=== PATIENT | male | born 1980 | race Caucasian/White ===

== ENCOUNTER 2018-03-15 15:30 | Emergency (ER) | payer BC, OTHER ==
--- NOTE | 2018-03-15 16:51 | RAD REPORT ---
EXAM DESCRIPTION: CT - Spine Lumbar Wo Con - 03/15/2018 4:29 pm CLINICAL HISTORY: Back pain radiating into both lower extremities COMPARISON: None. TECHNIQUE: Thin section axial imaging of the lumbar spine was performed. Sagittal and coronal recon struction images were generated and reviewed. All CT scans are performed using dose optimization technique as appropriate and may include automated exposure control or mA/KV adjustment according to patient size. FINDINGS: Lumbar bodies are normal in height and alignment. No fracture or acute bone finding. No pa rs interarticularis defects seen. Mid and lower lumbar facet joint degenerative changes minimal. No p araspinal mass or hematoma. L3-4 disc space is narrowed and there is bulging of disc material evident. Canal appears to be border line stenotic. Disc bulging is likely present at L4-5 as well. No large disc herniation is identifiable. CT imaging in the central canal is inherently limited. This is further limited by patient body habitus. IMPRESSION: No fracture or acute vertebral finding. L3-4 disc space narrowing and disc bulge changes with borderline or mild central spinal stenosis susp ected. Central canal detail is limited due to inherent technical factors and patient body habitus. Continued back pain and radicular symptoms can be further addressed with outpatient nonemergent MR im aging.
[2018-03-15] MEDS ORDERED: DIAZEPAM 5 MG TABLET ONE (16:54)
[2018-03-15] MEDS ORDERED: DEXAMETHASONE 10 MG/ML VIAL ONE (16:54)
[2018-03-15] MEDS ORDERED: KETOROLAC 30 MG/ML INJ ONE (16:55)
[2018-03-15] MEDS ORDERED: NA CHLORIDE 0.9% 1,000 ML ONE (16:55)
[2018-03-15] MEDS ORDERED: MORPHINE 4 MG/ML SYR ONE (16:55)
[2018-03-15] MEDS ORDERED: ONDANSETRON 4 MG/2 ML VIAL ONE (16:55)
[2018-03-15] MEDS ORDERED: predniSONE 20 MG TAB ONE (16:55)
[2018-03-15 17:00] LABS: Hematocrit 44.5 % (39.6-49.0); MCH 31.2 pg (27.0-35.0); MCV 93.1 fL (80-100); MPV 10.1 fL (7.6-11.3); RBC Red Blood Cell Count 4.77 M/uL (4.33-5.43)
[2018-03-15 17:08] LABS: Potassium 3.1 mEq/L (3.6-5.0)
[2018-03-15 17:12] LABS: Albumin 4.5 g/dL (3.2-5.5); Bilirubin Total 0.3 mg/dL (0.3-1.2); Protein, Total 7.9 g/dL (6.0-8.3)
--- NOTE | 2018-03-15 17:32 | EDPHYS ---
Physician Documentation [facility] Name: Sotero Muñoz Jr Age: 38 yrs Sex: Male : 1980 Arrival Date: 03/15/2018 Time: 15:35 Bed 6 Private MD: ED Physician Navid Michael HPI: 03/15 16:13 This 38 yrs old Male presents to ER via Ambulatory with complaints of Back vasquez Pain. 16:13 The patient presents with pain that is acute. The symptoms are located in the low back. vasquez Onset: The symptoms/episode began/occurred yesterday. The pain radiates to the lumbar area, left low back and right low back. Associated signs and symptoms: The patient has no apparent associated signs or symptoms. The problem was sustained when lifting. Severity of symptoms: At their worst the symptoms were moderate, in the emergency department the symptoms are unchanged. The patient has not experienced similar symptoms in the past. Historical: - Allergies: 16:02 No Known Allergies; ph - Home Meds: 16:02 Lisinopril Oral [Active]; ph - PMHx: 16:02 Hypertension; ph - PSHx: 16:02 eye surgery; gastric sleeve; Cholecystectomy; ph - Immunization history:: Adult Immunizations up to date. - Social history:: Smoking status: Patient/guardian denies using tobacco. - Family history:: not pertinent. ROS: 16:13 Constitutional: Negative for fever, chills, and weight loss, Eyes: Negative for injury, vasquez pain, redness, and discharge, ENT: Negative for injury, pain, and discharge, Neck: Negative for injury, pain, and swelling, Cardiovascular: Negative for chest pain, palpitations, and edema, Respiratory: Negative for shortness of breath, cough, wheezing, and pleuritic chest pain, Abdomen/GI: Negative for abdominal pain, nausea, vomiting, diarrhea, and constipation, : Negative for injury, bleeding, discharge, and swelling, MS/Extremity: Negative for injury and deformity, Skin: Negative for injury, rash, and discoloration, Neuro: Negative for headache, weakness, numbness, tingling, and seizure, Psych: Negative for depression, anxiety, suicide ideation, homicidal ideation, and hallucinations, Allergy/Immunology: Negative for hives, rash, and allergies, Endocrine: Negative for neck swelling, polydipsia, polyuria, polyphagia, and marked weight changes, Hematologic/Lymphatic: Negative for swollen nodes, abnormal bleeding, and unusual bruising. 16:13 Back: Positive for injury or acute deformity, decreased range of motion, pain at rest, pain with movement, radiated pain, of the lumbar area, left low back and right low back. Exam: 16:13 Constitutional: This is a well developed, well nourished patient who is awake, alert, vasquez and in no acute distress. Head/Face: Normocephalic, atraumatic. Eyes: Pupils equal round and reactive to light, extra-ocular motions intact. Lids and lashes normal. Conjunctiva and sclera are non-icteric and not injected. Cornea within normal limits. Periorbital areas with no swelling, redness, or edema. ENT: Nares patent. No nasal discharge, no septal abnormalities noted. Tympanic membranes are normal and external auditory canals are clear. Oropharynx with no redness, swelling, or masses, exudates, or evidence of obstruction, uvula midline. Mucous membranes moist. Neck: Trachea midline, no thyromegaly or masses palpated, and no cervical lymphadenopathy. Supple, full range of motion without nuchal rigidity, or vertebral point tenderness. No Meningismus. Chest/axilla: Normal chest wall appearance and motion. Nontender with no deformity. No lesions are appreciated. Cardiovascular: Regular rate and rhythm with a normal S1 and S2. No gallops, murmurs, or rubs. Normal PMI, no JVD. No pulse deficits. Respiratory: Lungs have equal breath sounds bilaterally, clear to auscultation and percussion. No rales, rhonchi or wheezes noted. No increased work of breathing, no retractions or nasal flaring. Abdomen/GI: Soft, non-tender, with normal bowel sounds. No distension or tympany. No guarding or rebound. No evidence of tenderness throughout. Male : Normal genitalia with no discharge or lesions. Skin: Warm, dry with normal turgor. Normal color with no rashes, no lesions, and no evidence of cellulitis. MS/ Extremity: Pulses equal, no cyanosis. Neurovascular intact. Full, normal range of motion. Neuro: Awake and alert, GCS 15, oriented to person, place, time, and situation. Cranial nerves II-XII grossly intact. Motor strength 5/5 in all extremities. Sensory grossly intact. Cerebellar exam normal. Normal gait. Psych: Awake, alert, with orientation to person, place and time. Behavior, mood, and affect are within normal limits. 16:13 Back: pain, that is mild, ROM is painful, normal spinal alignment noted, CVA tenderness, is absent. Vital Signs: 16:00 BP 146 / 74; Pulse 94; Resp 18; Temp 98.0; Pulse Ox 98% on R/A; Weight 140.61 kg; ph Height 5 ft. 6 in. (167.64 cm); Pain 8/10; 17:00 BP 142 / 70; Pulse 76; Resp 16; Pulse Ox 100% on R/A; Pain 5/10; hb 18:00 BP 140 / 72; Pulse 88; Resp 15; Pulse Ox 100% on R/A; Pain 3/10; hb 16:00 Body Mass Index 50.03 (140.61 kg, 167.64 cm) ph MDM: 16:03 Patient medically screened. [facility] 16:15 Data reviewed: vital signs, nurses notes, lab test result(s), radiologic studies, CT vasquez scan. 03/15 16:13 Order name: CBC w/o diff; Complete Time: 17:27 [facility] 03/15 16:13 Order name: Comprehensive Metabolic Panel; Complete Time: 17:27 [facility] 03/15 16:13 Order name: CT Lumbar Spine Wo Con; Complete Time: 17:27 [facility] 03/15 18:45 Order name: Urine Dipstick--Ancillary (enter results) bd Administered Medications: 17:00 Drug: Decadron - Dexamethasone 10 mg Route: IVP; Site: right antecubital; hb 17:00 Drug: Valium 5 mg Route: PO; hb 17:00 Drug: morphine 4 mg Route: IVP; Site: right antecubital; hb 17:00 Drug: Zofran 4 mg Route: IVP; Site: left antecubital; hb 17:00 Drug: predniSONE 40 mg Route: PO; hb 17:01 Drug: NS 0.9% 1000 ml Route: IV; Rate: 1 bolus; Site: right antecubital; hb 17:01 Drug: TORadol 30 mg Route: IVP; Site: right antecubital; hb Disposition: 03/15/18 17:31 Discharged to Home. Impression: Low back pain, Sciatica, Sciatica, left side, Sciatica, right side. - Condition is Stable. - Discharge Instructions: Back Pain, Adult, Musculoskeletal Pain, Sciatica, Back Injury Prevention, [id number], Back Pain, Adult, Uxnz-kt-Buzp, Back Exercises, Kqlt-ae-Aobs. - Prescriptions for Ibuprofen 600 mg Oral Tablet - take 1 tablet by ORAL route every 6 hours As needed take with food; 20 tablet. Skelaxin 800 mg Oral Tablet - take 1 tablet by ORAL route every 6 hours As needed; 40 tablet. Tylenol- Codeine #3 300-30 mg Oral Tablet - take 2 tablet by ORAL route every 6 hours As needed; 30 tablet. Medrol (Franco) 4 mg Oral Tablets, Dose Pack - take 1 tablet by ORAL route as directed - follow package instructions; 1 packet. - Medication Reconciliation Form, Thank You Letter, Antibiotic Education, Prescription Opioid Use, Work release form form. - Follow up: Private Physician; When: 2 - 3 days; Reason: Recheck today's complaints, Continuance of care, Re-evaluation by your physician. - Problem is new. - Symptoms have improved. Signatures: Dispatcher [employer] EDMS Navid Michael MD MD cha Hall, Patricia, RN RN Lillian Mcmullen RN RN hb Corrections: (The following items were deleted from the chart) 18:55 17:31 03/15/2018 17:31 Discharged to Home. Impression: Low back pain; Sciatica; hb Sciatica, left side; Sciatica, right side. Condition is Stable. Discharge Instructions: Back Pain, Adult, Musculoskeletal Pain, Sciatica, Back Injury Prevention, Vztw-by-Jtga, Back Pain, Adult, Zomk-lx-Bemt, Back Exercises, Zdwo-qt-Mlxh. Prescriptions for Ibuprofen 600 mg Oral Tablet - take 1 tablet by ORAL route every 6 hours As needed take with food; 20 tablet, Skelaxin 800 mg Oral Tablet - take 1 tablet by ORAL route every 6 hours As needed; 40 tablet, Tylenol-Codeine #3 300-30 mg Oral Tablet - take 2 tablet by ORAL route every 6 hours As needed; 30 tablet, Medrol (Franco) 4 mg Oral Tablets, Dose Pack - take 1 tablet by ORAL route as directed - follow package instructions; 1 packet. and Forms are Medication Reconciliation Form, Thank You Letter, Antibiotic Education, Prescription Opioid Use. Follow up: Private Physician; When: 2 - 3 days; Reason: Recheck today's complaints, Continuance of care, Re-evaluation by your physician. Problem is new. Symptoms have improved. vasquez
--- NOTE | 2018-03-15 17:32 | ER ---
Nurse's Notes [facility] Name: Sotero Muñoz Jr Age: 38 yrs Sex: Male : 1980 Arrival Date: 03/15/2018 Time: 15:35 Bed 6 Private MD: Diagnosis: Low back pain;Sciatica;Sciatica, left side;Sciatica, right side Presentation: 03/15 15:58 Presenting complaint: Patient states: " I was playing with my daughter about a week ago ph and I messed up my back. It has been hurting since and I just can't stand it anymore." Pt reports pain in lower back that radiates to bam legs, reports similar episode in the past. Transition of care: patient was not received from another setting of care. Onset of symptoms was March 15, 2018. Initial Sepsis Screen: Does the patient meet any 2 criteria? No. Patient's initial sepsis screen is negative. Does the patient have a suspected source of infection? No. Patient's initial sepsis screen is negative. Care prior to arrival: None. 15:58 Method Of Arrival: Ambulatory ph 15:58 Acuity: PALAK 4 ph Historical: - Allergies: 16:02 No Known Allergies; ph - Home Meds: 16:02 Lisinopril Oral [Active]; ph - PMHx: 16:02 Hypertension; ph - PSHx: 16:02 eye surgery; gastric sleeve; Cholecystectomy; ph - Immunization history:: Adult Immunizations up to date. - Social history:: Smoking status: Patient/guardian denies using tobacco. - Family history:: not pertinent. Screenin:15 Abuse screen: Denies threats or abuse. Denies injuries from another. Nutritional hb screening: No deficits noted. Tuberculosis screening: No symptoms or risk factors identified. Fall Risk None identified. Assessment: 16:30 General: Appears in no apparent distress. uncomfortable, Behavior is calm, cooperative. hb Pain: Pain currently is 8 out of 10 on a pain scale. Neuro: Level of Consciousness is awake, alert, obeys commands, Oriented to person, place, time, situation. Cardiovascular: Capillary refill < 3 seconds Patient's skin is warm and dry. Respiratory: Airway is patent Trachea midline Respiratory effort is even, unlabored, Respiratory pattern is regular, symmetrical, Breath sounds are clear bilaterally. GI: No signs and/or symptoms were reported involving the gastrointestinal system. : No signs and/or symptoms were reported regarding the genitourinary system. EENT: No signs and/or symptoms were reported regarding the EENT system. Derm: No signs and/or symptoms reported regarding the dermatologic system. Skin is intact, is healthy with good turgor, Skin is pink, warm \\T\\ dry. Musculoskeletal: Reports pain in right low back and left low back and lumbar area. 17:30 Reassessment: Patient appears in no apparent distress at this time. No changes from previously documented assessment. Patient and/or family updated on plan of care and expected duration. Pain level reassessed. Patient is alert, oriented x 3, equal unlabored respirations, skin warm/dry/pink. 18:21 Reassessment: Patient appears in no apparent distress at this time. Patient and/or hb family updated on plan of care and expected duration. Pain level reassessed. Patient is alert, oriented x 3, equal unlabored respirations, skin warm/dry/pink. Patient states symptoms have improved. Vital Signs: 16:00 BP 146 / 74; Pulse 94; Resp 18; Temp 98.0; Pulse Ox 98% on R/A; Weight 140.61 kg; ph Height 5 ft. 6 in. (167.64 cm); Pain 8/10; 17:00 BP 142 / 70; Pulse 76; Resp 16; Pulse Ox 100% on R/A; Pain 5/10; hb 18:00 BP 140 / 72; Pulse 88; Resp 15; Pulse Ox 100% on R/A; Pain 3/10; hb 16:00 Body Mass Index 50.03 (140.61 kg, 167.64 cm) ph ED Course: 15:35 Patient arrived in ED. rg4 16:00 Triage completed. ph 16:02 Arm band placed on. ph 16:03 Navid Michael MD is Attending Physician. vasquez 16:[address] vm2 16:29 CT completed. Patient moved back from CT. vm2 16:30 CT Lumbar Spine Wo Con In Process Unspecified. EDMS 16:50 Lillian Mcmullen, MUSTAPHA is Primary Nurse. hb 16:50 Patient has correct armband on for positive identification. Bed in low position. Call light in reach. Side rails up X 1. 16:50 Inserted saline lock: 20 gauge in right antecubital area, using aseptic technique. hb Blood collected. 18:53 No provider procedures requiring assistance completed. IV discontinued, intact, hb bleeding controlled, No redness/swelling at site. Pressure dressing applied. Administered Medications: 17:00 Drug: Decadron - Dexamethasone 10 mg Route: IVP; Site: right antecubital; hb 17:00 Drug: Valium 5 mg Route: PO; hb 17:00 Drug: morphine 4 mg Route: IVP; Site: right antecubital; hb 17:00 Drug: Zofran 4 mg Route: IVP; Site: left antecubital; hb 17:00 Drug: predniSONE 40 mg Route: PO; hb 17:01 Drug: NS 0.9% 1000 ml Route: IV; Rate: 1 bolus; Site: right antecubital; hb 17:01 Drug: TORadol 30 mg Route: IVP; Site: right antecubital; hb Outcome: 17:31 Discharge ordered by . vasquez 18:53 Discharged to home ambulatory. hb 18:53 Condition: stable 18:53 Discharge instructions given to patient, family, Instructed on discharge instructions, follow up and referral plans. medication usage, Demonstrated understanding of instructions, follow-up care, medications, Prescriptions given X 4. 18:55 Patient left the ED. hb Signatures: Dispatcher [employer] EDMS Navid Michael MD MD cha Hall, Patricia, RN RN Lillian Dickey, Alexia Sr RN rg4 Liset [facility]
[2018-03-15 19:04] VITALS: TEMP 98
[2018-03-15 19:05] VITALS: O2SAT 100
[2018-03-15 19:06] VITALS: BP 140/72
[2018-03-15 19:31] LABS: Urine Blood NEGATIVE (NEG); Urine Glucose NEGATIVE (NEG); Urine Protein NEGATIVE (NEG); Urine pH 5.5 (5.0-7.0)
== END 2018-03-15 18:55 | disposition home or self-care (01) ==
LOC: ER 15:30
DX: M54.32 Sciatica, left side (principal); M54.31 Sciatica, right side; I10 Essential (primary) hypertension
CPT/HCPCS: 36415; 72131; 80053; 81003; 85027; 99284; J1100; J2405; J7030; J7512

== ENCOUNTER 2018-04-29 10:09 | Emergency (ER) | payer OTHER ==
[2018-04-29] MEDS ORDERED: DEXAMETHASONE 10 MG/ML VIAL ONE (10:50)
--- NOTE | 2018-04-29 11:10 | EDPHYS ---
Physician Documentation [facility] Name: Sotero Muñoz Jr Age: 38 yrs Sex: Male : 1980 Arrival Date: 04/29/2018 Time: 10:13 Bed 15 Private MD: Carlos Witt ED Physician Ruy Hood HPI: 04/29 10:40 This 38 yrs old Male presents to ER via Ambulatory with complaints of Sinus jmm Congestion, Chest Congestion. 10:40 The patient or guardian reports cough. Onset: The symptoms/episode began/occurred jmm gradually, 2 day(s) ago. Modifying factors: The symptoms are alleviated by nothing. the symptoms are aggravated by nothing. Associated signs and symptoms: Pertinent positives: fever, rhinorrhea. This is a 38 year old male with a history htn that presents to the ED with cough, congestion beginning 2 days ago. patient admits to subjective fever and chills. Denies chest pain. . Historical: - Allergies: 10:23 No Known Allergies; ss - Home Meds: 10:23 amlodipine oral [Active]; Lisinopril Oral [Active]; ss - PMHx: 10:23 Hypertension; ss - PSHx: 10:23 eye surgery; gastric sleeve; Cholecystectomy; ss - Immunization history:: Adult Immunizations up to date. - Social history:: Smoking status: Patient/guardian denies using tobacco. - Ebola Screening: : Patient denies exposure to infectious person Patient denies travel to an Ebola-affected area in the 21 days before illness onset. ROS: 10:40 Eyes: Negative for injury, pain, redness, and discharge. jmm 10:40 Neck: Negative for injury, pain, and swelling, Cardiovascular: Negative for chest pain, palpitations, and edema. 10:40 Abdomen/GI: Negative for abdominal pain, nausea, vomiting, diarrhea, and constipation. 10:40 Skin: Negative for injury, rash, and discoloration. 10:40 Constitutional: Positive for chills, fever. 10:40 ENT: Positive for sinus congestion. 10:40 Respiratory: Positive for cough. 10:40 All other systems are negative. Exam: 10:40 Head/Face: atraumatic. jmm 10:40 Constitutional: The patient appears in no acute distress, alert, awake. 10:40 ENT: Posterior pharynx: is normal. 10:52 Cardiovascular: Rate: normal. [facility] 10:52 Respiratory: the patient does not display signs of respiratory distress, Respirations: normal, Breath sounds: are clear throughout. 10:52 Abdomen/GI: Inspection: obese Palpation: abdomen is soft and non-tender. 10:52 Musculoskeletal/extremity: ROM: intact in all extremities. 10:52 Skin: Appearance: Color: normal in color. 10:52 Neuro: Orientation: is normal, Mentation: is normal, Memory: is normal. 10:52 Psych: Behavior/mood is pleasant, cooperative. 10:53 Neck: ROM/movement: is normal, is supple. jmm 10:53 Back: ROM is normal. Vital Signs: 10:23 BP 129 / 82; Pulse 58; Resp 16; Temp 97.9(TE); Pulse Ox 98% on R/A; Weight 133.81 kg; ss Height 5 ft. 6 in. (167.64 cm); Pain 0/10; 10:23 Body Mass Index 47.61 (133.81 kg, 167.64 cm) ss MDM: 10:39 Patient medically screened. [facility] 10:53 Data reviewed: vital signs, nurses notes, lab test result(s). [facility] 11:10 Counseling: I had a detailed discussion with the patient and/or guardian regarding: the [facility] historical points, exam findings, and any diagnostic results supporting the discharge/admit diagnosis, lab results, the need for outpatient follow up, to return to the emergency department if symptoms worsen or persist or if there are any questions or concerns that arise at home. 04/29 10:49 Order name: Glucose, Ancillary Testing; Complete Time: 11:15 EDMS 04/29 10:38 Order name: FSBS; Complete Time: 10:47 sg Administered Medications: 11:00 Drug: Dexamethasone 10 mg {Note: R Ventrogluteal.} Route: IM; Site: Other; sg 11:18 Follow up: Response: No adverse reaction sg Disposition: 18:16 Co-signature as Attending Physician, Ruy Hood MD. rn Disposition: 04/29/18 11:09 Discharged to Home. Impression: Acute bronchitis. - Condition is Stable. - Discharge Instructions: Acute Bronchitis. - Prescriptions for Zithromax Z- Franco 250 mg Oral Tablet - take 1 tablet by ORAL route as directed for 5 days Day 1 - take two (2) tablets one time. Day 2, 3, 4 , 5 take one (1) tablet once daily.; 6 tablet. Albuterol Sulfate 90 mcg/actuation - inhale 1-2 puff by INHALATION route every 4-6 hours; 1 Inhaler. - Work release form, Medication Reconciliation Form, Thank You Letter, Antibiotic Education, Prescription Opioid Use form. - Follow up: Carlos Witt MD; When: 2 - 3 days; Reason: Continuance of care. Signatures: Ashok Morales RN RN Harmeet Alonso PA PA jmm Nieto, Roman, MD MD rn Smirch, Shelby, RN RN ss Corrections: (The following items were deleted from the chart) 11:18 11:09 04/29/2018 11:09 Discharged to Home. Impression: Acute bronchitis. Condition is sg Stable. Forms are Medication Reconciliation Form, Thank You Letter, Antibiotic Education, Prescription Opioid Use. Follow up: Carlos Witt; When: 2 - 3 days; Reason: Continuance of care. tanner
--- NOTE | 2018-04-29 11:10 | ER ---
Nurse's Notes [facility] Name: Sotero Muñoz Jr Age: 38 yrs Sex: Male : 1980 Arrival Date: 04/29/2018 Time: 10:13 Bed 15 Private MD: Carlos Witt Diagnosis: Acute bronchitis Presentation: 04/29 10:19 Presenting complaint: Patient states: sinus pressure/ congestion x 2 days. Transition ss of care: patient was not received from another setting of care. Onset of symptoms was April 26, 2018. Risk Assessment: Do you want to hurt yourself or someone else? Patient reports no desire to harm self or others. Initial Sepsis Screen: Does the patient meet any 2 criteria? No. Patient's initial sepsis screen is negative. Does the patient have a suspected source of infection? No. Patient's initial sepsis screen is negative. Care prior to arrival: None. 10:19 Method Of Arrival: Ambulatory ss 10:19 Acuity: PALAK 4 ss Triage Assessment: 11:44 General: Appears. sg 11:44 General: Behavior is calm, cooperative, appropriate for age. sg Historical: - Allergies: 10:23 No Known Allergies; ss - Home Meds: 10:23 amlodipine oral [Active]; Lisinopril Oral [Active]; ss - PMHx: 10:23 Hypertension; ss - PSHx: 10:23 eye surgery; gastric sleeve; Cholecystectomy; ss - Immunization history:: Adult Immunizations up to date. - Social history:: Smoking status: Patient/guardian denies using tobacco. - Ebola Screening: : Patient denies exposure to infectious person Patient denies travel to an Ebola-affected area in the 21 days before illness onset. Screenin:25 Abuse screen: Denies threats or abuse. Denies injuries from another. Nutritional sg screening: No deficits noted. Tuberculosis screening: No symptoms or risk factors identified. Never had TB. Fall Risk None identified. No fall in past 12 months (0 pts). Assessment: 10:25 General: Appears in no apparent distress. comfortable, well groomed, well developed, sg well nourished, Behavior is calm, cooperative, appropriate for age. Pain: Denies pain. Neuro: Level of Consciousness is awake, alert, obeys commands, Oriented to person, place, time, situation, Assistant Import Manager are equal bilaterally Moves all extremities. Full function Gait is steady, Speech is normal, Facial symmetry appears normal. Cardiovascular: Heart tones S1 S2 present Capillary refill is brisk in bilateral fingers Patient's skin is warm and dry. Respiratory: Airway is patent Respiratory effort is even, unlabored, Respiratory pattern is regular, symmetrical. GI: No signs and/or symptoms were reported involving the gastrointestinal system. : No signs and/or symptoms were reported regarding the genitourinary system. EENT: Nares are clear Oral mucosa is moist. Throat is clear. Derm: Skin is pink, warm \T\ dry. Musculoskeletal: No signs and/or symptoms reported regarding the musculoskeletal system. Vital Signs: 10:23 BP 129 / 82; Pulse 58; Resp 16; Temp 97.9(TE); Pulse Ox 98% on R/A; Weight 133.81 kg; ss Height 5 ft. 6 in. (167.64 cm); Pain 0/10; 10:23 Body Mass Index 47.61 (133.81 kg, 167.64 cm) ss ED Course: 10:13 Patient arrived in ED. sb2 10:14 Carlos Witt MD is Private Physician. sb2 10:19 Harmeet Morrison PA is PHCP. jmm 10:19 Ruy Hood MD is Attending Physician. [facility] 10:21 Triage completed. ss 10:23 Arm band placed on right wrist. ss 10:25 Patient has correct armband on for positive identification. Bed in low position. Call sg light in reach. Side rails up X2. Pulse ox on. NIBP on. Warm blanket given. Head of bed. 10:32 EKG done, by electroencephalograph technologist. reviewed by Harmeet SANTANA. at1 10:38 Ashok Morales, RN is Primary Nurse. sg 11:00 No provider procedures requiring assistance completed. Patient did not have IV access sg during this emergency room visit. 11:09 Carlos Witt MD is Referral Physician. [facility] Administered Medications: 11:00 Drug: Dexamethasone 10 mg {Note: R Ventrogluteal.} Route: IM; Site: Other; sg 11:18 Follow up: Response: No adverse reaction sg Outcome: 11:09 Discharge ordered by . tanner 11:15 Discharged to home ambulatory, with family. sg 11:15 Condition: good 11:15 Discharge instructions given to patient, Instructed on discharge instructions, follow up and referral plans. medication usage, safety practices, Demonstrated understanding of instructions, follow-up care, medications, Prescriptions given X 2. 11:18 Patient left the ED. sg Signatures: Ashok Morales RN RN Harmeet Alonso PA PA jmm Smirch, Shelby, RN RN ss Katarina christensen, franchise broker EKG Tat1 Shellie Dong sb2
[2018-04-29 11:22] VITALS: BP 129/82; TEMP 97.9; O2SAT 98
--- NOTE | 2018-04-29 17:25 | EKG ---
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
== END 2018-04-29 11:18 | disposition home or self-care (01) ==
LOC: ER 10:09
DX: J20.9 Acute bronchitis, unspecified (principal); I10 Essential (primary) hypertension
CPT/HCPCS: 82962; 93005; 96372; 99284; J1100

== ENCOUNTER 2019-08-28 01:41 | Emergency (ER) | payer OTHER ==
[2019-08-28] MEDS ORDERED: HYDROCODONE/APAP 5/325 MG TAB ONE (02:24)
[2019-08-28] MEDS ORDERED: KETOROLAC 30 MG/ML INJ ONE (02:24)
[2019-08-28] MEDS ORDERED: CYCLOBENZAPRINE 10 MG TAB ONE (02:24)
--- NOTE | 2019-08-28 02:38 | ER ---
Nurse's Notes [facility] Name: Sotero Muñoz Jr Age: 39 yrs Sex: Male : 1980 Arrival Date: 08/28/2019 Time: 01:45 Bed 8 Private MD: Diagnosis: Sprain of ligaments of lumbar spine Presentation: 08/28 01:56 Presenting complaint: Patient states: he is having lower back pain radiating down both bb legs since Wednesday symptoms seemed to have improved but now is worsening again pt states he has had similar symptoms in the past. Transition of care: patient was not received from another setting of care. Onset of symptoms was August 26, 2019. Risk Assessment: Do you want to hurt yourself or someone else? Patient reports no desire to harm self or others. Initial Sepsis Screen: Does the patient meet any 2 criteria? No. Patient's initial sepsis screen is negative. Does the patient have a suspected source of infection? No. Patient's initial sepsis screen is negative. Care prior to arrival: None. 01:56 Method Of Arrival: Ambulatory bb 01:56 Acuity: PALAK 4 bb Historical: - Allergies: 01:59 No Known Allergies; bb - Home Meds: 01:59 amlodipine oral [Active]; lisinopril Oral [Active]; bb - PMHx: 01:59 Hypertension; bb - PSHx: 01:59 Cholecystectomy; gastric sleeve; bb - Immunization history:: Adult Immunizations up to date. - Social history:: Smoking status: Patient/guardian denies using tobacco. - Ebola Screening: : No symptoms or risks identified at this time. Screenin:08 Abuse screen: Denies threats or abuse. Denies injuries from another. Nutritional ak1 screening: No deficits noted. On. Tuberculosis screening: No symptoms or risk factors identified. Fall Risk None identified. Assessment: 02:08 General: Appears in no apparent distress. obese, well groomed, Behavior is calm, ak1 cooperative, appropriate for age. Pain: Complains of pain in lumbar area, left low back and right low back. Neuro: Level of Consciousness is awake, alert, obeys commands, Oriented to person, place, time, situation, Moves all extremities. Full function. Cardiovascular: No deficits noted. Respiratory: No deficits noted. GI: No signs and/or symptoms were reported involving the gastrointestinal system. : No signs and/or symptoms were reported regarding the genitourinary system. EENT: No signs and/or symptoms were reported regarding the EENT system. Derm: No signs and/or symptoms reported regarding the dermatologic system. Musculoskeletal: Range of motion: pt with increased pain when bending over or twisting. Vital Signs: 01:59 BP 150 / 99; Pulse 91; Resp 16 S; Temp 97.8(O); Pulse Ox 99% on R/A; Weight 145.15 kg bb (R); Height 5 ft. 5 in. (165.10 cm) (R); Pain 7/10; 02:29 BP 136 / 88; Pulse 87; Resp 18; Pulse Ox 97% on R/A; ak1 02:37 BP 117 / 74; Pulse 86; Resp 16; Pulse Ox 97% on R/A; ak1 01:59 Body Mass Index 53.25 (145.15 kg, 165.10 cm) ED Course: 01:45 Patient arrived in ED. ag3 01:58 Triage completed. bb 01:59 Arm band placed on Patient placed in an exam room, on a stretcher, on pulse oximetry. bb Family accompanied patient. 02:07 Chana Wilcox, RN is Primary Nurse. ak1 02:08 Nicholas Galeana MD is Attending Physician. tw4 02:08 Patient has correct armband on for positive identification. Bed in low position. Call ak1 light in reach. Side rails up X 1. Adult w/ patient. Pulse ox on. NIBP on. 02:38 No provider procedures requiring assistance completed. Patient did not have IV access ak1 during this emergency room visit. Administered Medications: 02:28 Drug: TORadol 60 mg Route: IM; Site: left vastus lateralis; ak1 02:38 Follow up: Response: No adverse reaction ak1 02:28 Drug: Flexeril 10 mg Route: PO; ak1 02:39 Follow up: Response: No adverse reaction ak1 02:28 Drug: [place] 5 mg-325 mg 1 tabs Route: PO; ak1 02:38 Follow up: Response: No adverse reaction; RASS: Alert and Calm (0) ak1 Outcome: 02:37 Discharge ordered by . tw4 02:49 Discharged to home ambulatory, with family. ak1 02:49 Condition: stable 02:49 Discharge instructions given to patient, family, Instructed on discharge instructions, follow up and referral plans. no drinking with medication, no driving heavy equipment, medication usage, Demonstrated understanding of instructions, follow-up care, medications, Prescriptions given X 3. 02:58 Patient left the ED. ak1 Signatures: Fiona Mcconnell RN RN bb Chana Wilcox RN RN ak1 Nicholas Galeana MD MD tw4 Alecia Aquino 3
--- NOTE | 2019-08-28 02:38 | EDPHYS ---
Physician Documentation [facility] Name: Sotero Muñoz Jr Age: 39 yrs Sex: Male : 1980 Arrival Date: 08/28/2019 Time: 01:45 Bed 8 Private MD: ED Physician Nicholas Galeana HPI: 08/28 02:34 This 39 yrs old Male presents to ER via Ambulatory with complaints of Back tw4 Pain. 02:34 The patient presents with pain that is acute, with no known mechanism of injury. The tw4 symptoms are located in the low back. Onset: The symptoms/episode began/occurred just prior to arrival, today. The pain does not radiate. Associated signs and symptoms: The patient has no apparent associated signs or symptoms. Modifying factors: The patient symptoms are alleviated by nothing, the patient symptoms are aggravated by bending, movement. Severity of symptoms: At their worst the symptoms were moderate, in the emergency department the symptoms are unchanged. The patient has not experienced similar symptoms in the past. Historical: - Allergies: :59 No Known Allergies; bb - Home Meds: :59 amlodipine oral [Active]; lisinopril Oral [Active]; bb - PMHx: 01:59 Hypertension; bb - PSHx: 01:59 Cholecystectomy; gastric sleeve; bb - Immunization history:: Adult Immunizations up to date. - Social history:: Smoking status: Patient/guardian denies using tobacco. - Ebola Screening: : No symptoms or risks identified at this time. ROS: 02:34 Constitutional: Negative for fever, chills, and weight loss, Eyes: Negative for injury, tw4 pain, redness, and discharge, Cardiovascular: Negative for chest pain, palpitations, and edema, Respiratory: Negative for shortness of breath, cough, wheezing, and pleuritic chest pain, Abdomen/GI: Negative for abdominal pain, nausea, vomiting, diarrhea, and constipation, MS/Extremity: Negative for injury and deformity, Skin: Negative for injury, rash, and discoloration, Neuro: Negative for headache, weakness, numbness, tingling, and seizure. 02:34 Back: Positive for injury or acute deformity, decreased range of motion, pain at rest, pain with movement. Exam: 02:34 Constitutional: This is a well developed, well nourished patient who is awake, alert, tw4 and in no acute distress. Head/Face: Normocephalic, atraumatic. Chest/axilla: Normal chest wall appearance and motion. Nontender with no deformity. No lesions are appreciated. Cardiovascular: Regular rate and rhythm with a normal S1 and S2. No gallops, murmurs, or rubs. Normal PMI, no JVD. No pulse deficits. Respiratory: Lungs have equal breath sounds bilaterally, clear to auscultation and percussion. No rales, rhonchi or wheezes noted. No increased work of breathing, no retractions or nasal flaring. Abdomen/GI: Soft, non-tender, with normal bowel sounds. No distension or tympany. No guarding or rebound. No evidence of tenderness throughout. MS/ Extremity: Pulses equal, no cyanosis. Neurovascular intact. Full, normal range of motion. Neuro: Awake and alert, GCS 15, oriented to person, place, time, and situation. Cranial nerves II-XII grossly intact. Motor strength 5/5 in all extremities. Sensory grossly intact. Cerebellar exam normal. Normal gait. 02:34 Back: pain, is absent, ROM is normal, normal spinal alignment noted, muscle spasm, is appreciated in the left low back and right low back. Vital Signs: 01:59 BP 150 / 99; Pulse 91; Resp 16 S; Temp 97.8(O); Pulse Ox 99% on R/A; Weight 145.15 kg bb (R); Height 5 ft. 5 in. (165.10 cm) (R); Pain 7/10; 02:29 BP 136 / 88; Pulse 87; Resp 18; Pulse Ox 97% on R/A; ak1 02:37 BP 117 / 74; Pulse 86; Resp 16; Pulse Ox 97% on R/A; ak1 01:59 Body Mass Index 53.25 (145.15 kg, 165.10 cm) bb MDM: 02:08 Patient medically screened. tw4 02:34 Differential diagnosis: Fatigue Joint Injury Ligament Injury Obesity Osteoarthritis tw4 sprain. Data reviewed: vital signs, nurses notes. Counseling: I had a detailed discussion with the patient and/or guardian regarding: the historical points, exam findings, and any diagnostic results supporting the discharge/admit diagnosis. Medication response: Toradol markedly relieved the patient's pain. Response to treatment: and as a result, I will discharge patient, administer pain medication, acetaminophen, morphine. Administered Medications: 02:28 Drug: TORadol 60 mg Route: IM; Site: left vastus lateralis; ak1 02:38 Follow up: Response: No adverse reaction ak1 02:28 Drug: Flexeril 10 mg Route: PO; ak1 02:39 Follow up: Response: No adverse reaction ak1 02:28 Drug: [place] 5 mg-325 mg 1 tabs Route: PO; ak1 02:38 Follow up: Response: No adverse reaction; RASS: Alert and Calm (0) ak1 Disposition: 08/28/19 02:37 Discharged to Home. Impression: Sprain of ligaments of lumbar spine. - Condition is Stable. - Discharge Instructions: Back Pain, Adult, [id number], Back Exercises, Back Injury Prevention. - Prescriptions for Ibuprofen 800 mg Oral Tablet - take 1 tablet by ORAL route every 8 hours As needed take with food; 30 tablet. Cyclobenzaprine 10 mg Oral Tablet - take 1 tablet by ORAL route every 8 hours As needed; 30 tablet. Tramadol 50 mg Oral Tablet - take 1 tablet by ORAL route every 8 hours as needed; 12 tablet. - Work release form, Medication Reconciliation Form, Thank You Letter, Antibiotic Education, Prescription Opioid Use form. - Follow up: Private Physician; When: Upon discharge from the Emergency Department; Reason: Recheck today's complaints, Continuance of care. - Problem is new. - Symptoms have improved. Signatures: Fiona Mcconnell RN RN bb Chana Wilcox RN RN ak1 Nicholas Galeana MD MD tw4 Corrections: (The following items were deleted from the chart) 02:58 02:37 08/28/2019 02:37 Discharged to Home. Impression: Sprain of ligaments of lumbar ak1 spine. Condition is Stable. Forms are Medication Reconciliation Form, Thank You Letter, Antibiotic Education, Prescription Opioid Use. Follow up: Private Physician; When: Upon discharge from the Emergency Department; Reason: Recheck today's complaints, Continuance of care. Problem is new. Symptoms have improved. tw4
[2019-08-28 03:41] VITALS: BP 117/74; TEMP 97.8; O2SAT 97
== END 2019-08-28 02:58 | disposition home or self-care (01) ==
LOC: ER 01:41
DX: S33.5XXA Sprain of ligaments of lumbar spine, initial encounter (principal); I10 Essential (primary) hypertension; X58.XXXA Exposure to other specified factors, initial encounter; Y93.9 Activity, unspecified; Y92.9 Unspecified place or not applicable
CPT/HCPCS: 96372; 99283

== ENCOUNTER 2020-07-05 14:01 | Emergency (ER) | payer OTHER ==
[2020-07-05] MEDS ORDERED: ONDANSETRON 4 MG/2 ML VIAL ONE (15:19)
[2020-07-05] MEDS ORDERED: MECLIZINE HCL 12.5 MG TAB ONE (15:20)
[2020-07-05] MEDS ORDERED: NA CHLORIDE 0.9% 1,000 ML ONE (15:20)
[2020-07-05 15:29] LABS: Absolute Lymphocytes (CBC) 1.2 K/uL (0.7-4.9); Basophils % 0.5 % (0-1.3); Hematocrit 45.1 % (39.6-49.0); Lymphocytes % 12.3 % (15.3-44.8); MPV 10.5 fL (7.6-11.3)
--- NOTE | 2020-07-05 15:46 | RAD REPORT ---
EXAM DESCRIPTION: CT - Head Brain Wo Cont - 07/05/2020 3:24 pm CLINICAL HISTORY: Dizziness COMPARISON: 2009 TECHNIQUE: Computed axial tomography of the head was obtained. IV contrast was not requested. All CT scans are performed using dose optimization technique as appropriate and may include automated exposure control or mA/KV adjustment according to patient size. FINDINGS: An intracranial bleed is not seen . The ventricles are normal in caliber. No extra-axial fluid collection is noted. Fluid within the sinuses/ mastoids is not seen. IMPRESSION: No acute intracranial abnormality is seen. If patient's symptoms persist MRI of the bra in would be recommended.
[2020-07-05 15:53] LABS: ALT/SGPT 58 U/L (12-78); AST/SGOT 23 U/L (15-37); Albumin 4.2 g/dL (3.4-5.0); Alkaline Phosphatase 90 U/L (45-117); BUN Blood Urea Nitrogen 13 mg/dL (7-18); Bicarbonate 28 mmol/L (21-32); Bilirubin Direct 0.1 mg/dL (0-0.2); Bilirubin Total 0.4 mg/dL (0.2-1.0); Glucose Level 94 mg/dL (74-106); Magnesium 2.1 mg/dL (1.8-2.4); NT PRO-BNP 134 pg/mL (<125); Potassium 3.4 mmol/L (3.5-5.1); Protein, Total 8.2 g/dL (6.4-8.2); Sodium Level 137 mmol/L (136-145); Troponin (Emerg Dept Use Only) < 0.02 ng/mL (0.0-0.045)
--- NOTE | 2020-07-05 17:07 | RAD REPORT ---
EXAM DESCRIPTION: Nessa Single View07/05/2020 3:49 pm CLINICAL HISTORY: cough COMPARISON: 2011 FINDINGS: The lungs appear clear of acute infiltrate. The heart is normal size IMPRESSION: No acute abnormalities displayed
--- NOTE | 2020-07-05 17:18 | EDPHYS ---
Physician Documentation [facility] Name: Sotero Muñoz Jr Age: 40 yrs Sex: Male : 1980 Arrival Date: 07/05/2020 Time: 14:03 Bed 5 Private MD: Dileep Allison ED Physician Navid Michael HPI: 07/05 15:05 This 40 yrs old Male presents to ER via Wheelchair with complaints of vasquez Dizziness, Ear Pain. 15:05 The patient presents with dizziness, feeling off balance, a sense of confusion. Onset: vasquze The symptoms/episode began/occurred 3 day(s) ago. Context: occurred at home. Modifying factors: The symptoms are alleviated by closing eyes, holding head still. Associated signs and symptoms: The patient has no apparent associated signs or symptoms. Severity of symptoms: At their worst the symptoms were mild in the emergency department the symptoms are unchanged. Patient's baseline: Neuro:. The patient has not experienced similar symptoms in the past. dizzy eyes open, resolved with eyes closed. Historical: - Allergies: 14:07 No Known Allergies; sv - PMHx: 14:07 Hypertension; sv 14:11 Diabetes - NIDDM; sv - PSHx: 14:07 Cholecystectomy; gastric sleeve; sv - Immunization history:: Adult Immunizations. - Social history:: Smoking status: Patient denies any tobacco usage or history of. - Family history:: not pertinent. ROS: 15:05 Constitutional: Negative for fever, chills, and weight loss, Eyes: Negative for injury, vasquez pain, redness, and discharge, ENT: Negative for injury, pain, and discharge, Neck: Negative for injury, pain, and swelling, Cardiovascular: Negative for chest pain, palpitations, and edema, Respiratory: Negative for shortness of breath, cough, wheezing, and pleuritic chest pain, Abdomen/GI: Negative for abdominal pain, nausea, vomiting, diarrhea, and constipation, Back: Negative for injury and pain, : Negative for injury, bleeding, discharge, and swelling, MS/Extremity: Negative for injury and deformity, Skin: Negative for injury, rash, and discoloration, Psych: Negative for depression, anxiety, suicide ideation, homicidal ideation, and hallucinations, Allergy/Immunology: Negative for hives, rash, and allergies, Endocrine: Negative for neck swelling, polydipsia, polyuria, polyphagia, and marked weight changes, Hematologic/Lymphatic: Negative for swollen nodes, abnormal bleeding, and unusual bruising. 15:05 Neuro: Positive for dizziness, gait disturbance. Exam: 15:05 Constitutional: This is a well developed, well nourished patient who is awake, alert, vasquez and in no acute distress. Head/Face: Normocephalic, atraumatic. Eyes: Pupils equal round and reactive to light, extra-ocular motions intact. Lids and lashes normal. Conjunctiva and sclera are non-icteric and not injected. Cornea within normal limits. Periorbital areas with no swelling, redness, or edema. ENT: Nares patent. No nasal discharge, no septal abnormalities noted. Tympanic membranes are normal and external auditory canals are clear. Oropharynx with no redness, swelling, or masses, exudates, or evidence of obstruction, uvula midline. Mucous membranes moist. Neck: Trachea midline, no thyromegaly or masses palpated, and no cervical lymphadenopathy. Supple, full range of motion without nuchal rigidity, or vertebral point tenderness. No Meningismus. Chest/axilla: Normal chest wall appearance and motion. Nontender with no deformity. No lesions are appreciated. Cardiovascular: Regular rate and rhythm with a normal S1 and S2. No gallops, murmurs, or rubs. Normal PMI, no JVD. No pulse deficits. Respiratory: Lungs have equal breath sounds bilaterally, clear to auscultation and percussion. No rales, rhonchi or wheezes noted. No increased work of breathing, no retractions or nasal flaring. Abdomen/GI: Soft, non-tender, with normal bowel sounds. No distension or tympany. No guarding or rebound. No evidence of tenderness throughout. Back: No spinal tenderness. No costovertebral tenderness. Full range of motion. Skin: Warm, dry with normal turgor. Normal color with no rashes, no lesions, and no evidence of cellulitis. MS/ Extremity: Pulses equal, no cyanosis. Neurovascular intact. Full, normal range of motion. Psych: Awake, alert, with orientation to person, place and time. Behavior, mood, and affect are within normal limits. 15:05 Neck: External neck: is normal, C-spine: appears grossly normal, no acute changes, Thyroid: appears normal, no acute changes, Trachea: is midline with no obvious abnormalities, no acute changes, ROM/movement: is normal, no acute changes, Meningeal signs: are not present, Kernig's sign is negative, Brudzinski's sign is negative. 15:05 Cardiovascular: JVD: is not appreciated, no carotid bruits. 15:05 Neuro: Orientation: is normal, appropriate for stated age, no acute changes, Mentation: is normal, appropriate for stated age, no acute changes, Memory: is normal, appropriate for stated age, no acute changes, Cranial nerves: grossly normal, is grossly normal based on the patient's age, no acute changes, Cerebellar function: is grossly normal, is grossly normal based on the patient's age, no acute changes, Motor: is normal, is grossly normal based on the patient's age, no acute changes, moves all fours, Sensation: is normal, no obvious gross deficits, appropriate no acute changes, Gait: not tested. Babinski testing is normal, seizure activity, is not displayed by the patient. Vital Signs: 14:07 BP 124 / 82; Pulse 75; Resp 18; Temp 98; Pulse Ox 96% ; Weight 127.01 kg; Height 5 ft. sv 4 in. (162.56 cm); 14:59 BP 119 / 83; Pulse 74; Resp 15; Pulse Ox 96% ; Pain 3/10; jl7 16:09 BP 117 / 69; Pulse 63; Resp 15; Pulse Ox 96% ; jl7 17:15 BP 113 / 79; Pulse 64; Resp 16; Pulse Ox 100% ; jl7 14:07 Body Mass Index 48.06 (127.01 kg, 162.56 cm) sv MDM: 14:25 Patient medically screened. vasquez 15:09 Data reviewed: vital signs, nurses notes, lab test result(s), EKG, radiologic studies, vasquez CT scan, plain films. 17:11 Differential diagnosis: cardiac arrhythmia, CVA, generalized weakness, hypovolemia, vasquez idiopathic dizziness, TIA, vertigo. Data interpreted: panel monitor: rate is 63 beats/min, rhythm is regular. Test interpretation: by ED physician or midlevel provider: ECG, plain radiologic studies. Counseling: I had a detailed discussion with the patient and/or guardian regarding: the historical points, exam findings, and any diagnostic results supporting the discharge/admit diagnosis, lab results. Medication response: zofran and meclizine. 07/05 15:05 Order name: Basic Metabolic Panel; Complete Time: 16:55 [facility] 07/05 15:05 Order name: CBC with Diff; Complete Time: 16:55 [facility] 07/05 15:05 Order name: LFT's; Complete Time: 16:55 [facility] 07/05 15:05 Order name: Magnesium; Complete Time: 16:55 [facility] 07/05 15:05 Order name: NT PRO-BNP; Complete Time: 16:55 [facility] 07/05 15:05 Order name: Troponin (emerg Dept Use Only); Complete Time: 16:55 [facility] 07/05 15:05 Order name: XRAY Chest (1 view) [facility] 07/05 15:05 Order name: EKG; Complete Time: 15:06 [facility] 07/05 15:05 Order name: Cardiac monitoring; Complete Time: 15:49 [facility] 07/05 15:05 Order name: EKG - Nurse/Tech; Complete Time: 15:49 [facility] 07/05 15:05 Order name: CT Head Brain wo Cont; Complete Time: 16:55 [facility] 07/05 15:05 Order name: IV Saline Lock; Complete Time: 16:06 [facility] 07/05 15:05 Order name: Labs collected and sent; Complete Time: 16:06 [facility] 07/05 15:05 Order name: O2 Per Protocol; Complete Time: 16:07 [facility] 07/05 15:05 Order name: O2 Sat Monitoring; Complete Time: 16:07 [facility] 07/05 17:11 Order name: PO challenge: oj; Complete Time: 17:26 [facility] Administered Medications: 15:15 Drug: Meclizine 50 mg Route: PO; jl7 16:07 Follow up: Response: No adverse reaction; Other; Dizziness decreased jl7 15:17 Drug: Zofran (Ondansetron) 4 mg Route: IVP; Site: left forearm; jl7 16:07 Follow up: Response: No adverse reaction jl7 15:40 Drug: NS 0.9% 1000 ml Route: IV; Rate: 1 bolus; Site: left forearm; jl7 16:40 Follow up: Response: No adverse reaction; IV Status: Completed infusion; IV Intake: jl7 1000ml Disposition: 07/05/20 17:17 Discharged to Home. Impression: Vertiginous syndromes in diseases classified elsewhere, unspecified ear, Type 2 diabetes mellitus. - Condition is Stable. - Discharge Instructions: Type 2 Diabetes Mellitus, Diagnosis, Adult, Dizziness, Vertigo, Vertigo, Konj-ft-Ikow, Aspirin and Your Heart, Type 2 Diabetes Mellitus, Diagnosis, Adult, [id number], Dizziness, [id number]. - Prescriptions for Meclizine 25 mg Oral Tablet - take 1 tablet by ORAL route every 8 hours As needed; 30 tablet. Zofran 4 mg Oral Tablet - take 1 tablet by ORAL route every 12 hours As needed; 14 tablet. Medrol (Franco) 4 mg Oral Tablets, Dose Pack - take 1 tablet by ORAL route as directed - follow package instructions; 1 packet. - Work release form, Medication Reconciliation Form, Thank You Letter, Antibiotic Education, Prescription Opioid Use form. - Follow up: Dileep Allison MD; When: 2 - 3 days; Reason: Recheck today's complaints, Continuance of care, Re-evaluation by your physician. - Problem is new. - Symptoms have improved. Signatures: Dispatcher [employer] Tyra Alvarez, RN RN Navid Gama MD MD cha Leal, Jahala, RN RN jl7 Corrections: (The following items were deleted from the chart) 17:35 17:17 07/05/2020 17:17 Discharged to Home. Impression: Vertiginous syndromes in jl7 diseases classified elsewhere, unspecified ear; Type 2 diabetes mellitus. Condition is Stable. Forms are Medication Reconciliation Form, Thank You Letter, Antibiotic Education, Prescription Opioid Use. Follow up: Dileep Allison; When: 2 - 3 days; Reason: Recheck today's complaints, Continuance of care, Re-evaluation by your physician. Problem is new. Symptoms have improved. vasquez
--- NOTE | 2020-07-05 17:18 | ER ---
Nurse's Notes [facility] Name: Sotero Muñoz Jr Age: 40 yrs Sex: Male : 1980 Arrival Date: 07/05/2020 Time: 14:03 Bed 5 Private MD: Dileep Allison Diagnosis: Vertiginous syndromes in diseases classified elsewhere, unspecified ear;Type 2 diabetes mellitus Presentation: 07/05 14:05 Chief complaint: Patient states: dizziness since Wed, yesterday felt better but today sv felt worse. States n/v/left ear pain started today. Also states that he has been having a headache and his head feels numb. Coronavirus screen: Client denies travel out of the [place] in the last 14 days. At this time, the client does not indicate any symptoms associated with coronavirus-19. Ebola Screen: No symptoms or risks identified at this time. Risk Assessment: Do you want to hurt yourself or someone else? Patient reports no desire to harm self or others. Onset of symptoms was July 03, 2020. 14:05 Method Of Arrival: Wheelchair sv 14:05 Acuity: PALAK 3 sv 14:10 Initial Sepsis Screen: Does the patient meet any 2 criteria? No. Patient's initial sv sepsis screen is negative. Does the patient have a suspected source of infection? No. Patient's initial sepsis screen is negative. Historical: - Allergies: 14:07 No Known Allergies; sv - PMHx: 14:07 Hypertension; sv 14:11 Diabetes - NIDDM; sv - PSHx: 14:07 Cholecystectomy; gastric sleeve; sv - Immunization history:: Adult Immunizations. - Social history:: Smoking status: Patient denies any tobacco usage or history of. - Family history:: not pertinent. Screenin:22 Abuse screen: Denies threats or abuse. Nutritional screening: No deficits noted. tw2 Tuberculosis screening: No symptoms or risk factors identified. Fall Risk None identified. Assessment: 14:52 General: Appears in no apparent distress. uncomfortable, Behavior is calm, cooperative, jl7 appropriate for age. Pain: Denies pain. Neuro: Level of Consciousness is awake, alert, obeys commands, Oriented to person, place, time, situation, Reports dizziness, since "It happened on Wednesday and then today.". Cardiovascular: Patient's skin is warm and dry. Respiratory: Airway is patent Respiratory effort is even, unlabored, Respiratory pattern is regular, symmetrical. EENT: Tympanic membrane reddened on right ear and left ear bulging on left ear Ear canal clear on right ear and left ear. Derm: Skin is pink, warm \\T\\ dry. 14:59 Pain: Complains of pain in left ear Pain currently is 3 out of 10 on a pain scale. jl7 16:08 Reassessment: Pt reports decreased dizziness at this time. jl7 17:31 Reassessment: Pt provided OJ as ordered for PO challenge, denies nausea at this time. jl7 Vital Signs: 14:07 BP 124 / 82; Pulse 75; Resp 18; Temp 98; Pulse Ox 96% ; Weight 127.01 kg; Height 5 ft. sv 4 in. (162.56 cm); 14:59 BP 119 / 83; Pulse 74; Resp 15; Pulse Ox 96% ; Pain 3/10; jl7 16:09 BP 117 / 69; Pulse 63; Resp 15; Pulse Ox 96% ; jl7 17:15 BP 113 / 79; Pulse 64; Resp 16; Pulse Ox 100% ; jl7 14:07 Body Mass Index 48.06 (127.01 kg, 162.56 cm) sv ED Course: 14:03 Patient arrived in ED. ag5 14:03 Dileep Allison MD is Private Physician. ag5 14:05 Arm band placed on. sv 14:07 Triage completed. sv 14:12 Don Ann, RN is Primary Nurse. jl7 14:22 Bed in low position. Call light in reach. Pulse ox on. NIBP on. tw2 14:25 Navid Michael MD is Attending Physician. vasquez 15:00 Initial lab(s) drawn, by nc, sent to lab. EKG done, by ED staff, reviewed by Navid Michael MD. Inserted saline lock: 20 gauge in left forearm, using aseptic technique. Blood collected. 15:24 CT Head Brain wo Cont In Process Unspecified. EDMS 15:49 XRAY Chest (1 view) In Process Unspecified. EDMS 17:16 Dileep Allison MD is Referral Physician. vasquez 17:33 No provider procedures requiring assistance completed. IV discontinued, intact, jl7 bleeding controlled, No redness/swelling at site. Pressure dressing applied. Administered Medications: 15:15 Drug: Meclizine 50 mg Route: PO; jl7 16:07 Follow up: Response: No adverse reaction; Other; Dizziness decreased jl 15:17 Drug: Zofran (Ondansetron) 4 mg Route: IVP; Site: left forearm; jl7 16:07 Follow up: Response: No adverse reaction jl7 15:40 Drug: NS 0.9% 1000 ml Route: IV; Rate: 1 bolus; Site: left forearm; jl7 16:40 Follow up: Response: No adverse reaction; IV Status: Completed infusion; IV Intake: jl7 1000ml Intake: 16:40 IV: 1000ml; Total: 1000ml. [facility] Outcome: 17:17 Discharge ordered by . vasquez 17:34 Discharged to home ambulatory. Shona 17:34 Condition: stable 17:34 Discharge instructions given to patient, Instructed on discharge instructions, follow up and referral plans. medication usage, Demonstrated understanding of instructions, follow-up care, medications, Prescriptions given X 3. 17:35 Patient left the ED. [facility] Signatures: Dispatcher [employer] EDMS Tyra Pierce, RN RN Navid Gama MD MD cha Wise, Tara, RN RN tw2 oDn Ann RN RN jl7 Jessica Thorne ag5 Corrections: (The following items were deleted from the chart) 14:10 14:05 Chief complaint: Patient states: dizziness since Wed, yesterday felt better but sv today felt worse. States n/v/left ear pain started today sv 14:11 14:07 Pulse 75bpm; Resp 18bpm; Pulse Ox 96%; Temp 98F; 127.01 kg; Height 5 ft. 4 in.; sv BMI: 48.0; sv
[2020-07-07 01:04] VITALS: TEMP 98
[2020-07-07 01:08] VITALS: BP 113/79; O2SAT 100
--- NOTE | 2020-07-09 05:23 | EKG ---
Test Date: 2020-07-05 Test Time: 15:10:08 Personal Clothing Laundry Aide: ESPERANZA MEASUREMENT RESULTS: Intervals: Rate: 69 VT: 174 QRSD: 90 QT: 446 QTc: 477 [place]: P: 43 VT: 174 QRS: 8 T: 12 INTERPRETIVE STATEMENTS: Normal sinus rhythm Normal ECG Compared to ECG 04/29/2018 10:25:52 Sinus bradycardia no longer present Electronically Signed On 07-09-20 05:20:54 CDT by Phil Rg
== END 2020-07-05 17:35 | disposition home or self-care (01) ==
LOC: ER 14:01
DX: R42 Dizziness and giddiness (principal); H82.9 Vertiginous syndromes in diseases classified elsewhere, unspecified ear; E11.9 Type 2 diabetes mellitus without complications; I10 Essential (primary) hypertension; Z98.84 Bariatric surgery status
CPT/HCPCS: 96361; 85025; 80048; 36415; 83735; 80076; 84484; 83880; 70450; 71045; 96374; 99284; J8597; J7030; J2405; 93005

== ENCOUNTER 2020-09-02 04:22 | Inpatient (IN) | payer OTHER ==
[2020-09-02] MEDS ORDERED: NA CHLORIDE 0.9% 4,000 ML ONE (05:15)
[2020-09-02 05:48] LABS: Absolute Lymphocytes (CBC) 0.8 K/uL (0.7-4.9); Basophils % 0.3 % (0-1.3); Hematocrit 42.6 % (39.6-49.0); Lymphocytes % 4.6 % (15.3-44.8); MPV 10.2 fL (7.6-11.3); RBC Red Blood Cell Count 4.56 M/uL (4.33-5.43)
[2020-09-02 06:07] LABS: Protime INR 1.03
[2020-09-02 06:28] LABS: ALT/SGPT 58 U/L (12-78); AST/SGOT 24 U/L (15-37); Albumin 3.9 g/dL (3.4-5.0); Alkaline Phosphatase 86 U/L (45-117); Amylase 28 U/L (25-115); BUN Blood Urea Nitrogen 12 mg/dL (7-18); Bicarbonate 25 mmol/L (21-32); Bilirubin Direct 0.1 mg/dL (0-0.2); Bilirubin Total 0.5 mg/dL (0.2-1.0); Creatine Phosphokinase 278 U/L (39-308); Glucose Level 114 mg/dL (74-106); Lipase 113 U/L (73-393); Potassium 3.6 mmol/L (3.5-5.1); Protein, Total 7.4 g/dL (6.4-8.2); Sodium Level 137 mmol/L (136-145); Troponin (Emerg Dept Use Only) < 0.02 ng/mL (0.0-0.045)
[2020-09-02] MEDS ORDERED: CEFTRIAXONE/SWI 1gm 1 GM/10 ML SYR ONE (06:37)
[2020-09-02] MEDS ORDERED: AZITHROMYCIN 500 MG INJ IVPB ONE (06:37)
[2020-09-02] MEDS ORDERED: NA CHLORIDE 0.9% 250 ML ONE (06:37)
[2020-09-02 07:29] LABS: Blood Morphology Comment NOT SEEN (NOT SEEN); Platelet Estimate ADEQ
[2020-09-02 07:51] LABS: Urine Blood NEGATIVE (NEG); Urine Glucose NEGATIVE (NEG); Urine Protein NEGATIVE (NEG); Urine pH 5.5 (5.0-7.0)
[2020-09-02 07:57] LABS: Urine Bacteria <20 /HPF (NONE SEEN); Urine Culture Reflex Order NOT NEEDED; Urine RBC NONE SEEN /HPF (NONE SEEN)
--- NOTE | 2020-09-02 08:36 | RAD REPORT ---
EXAM DESCRIPTION: CT - Chest For Pe Angio - 09/02/2020 7:34 am CLINICAL HISTORY: Chest pain. SOB COMPARISON: No comparisons TECHNIQUE: CT angiogram of the pulmonary arteries was performed with MIP. All CT scans are performed using dose optimization technique as appropriate and may include automated exposure control or mA/KV adjustment according to patient size. FINDINGS: No evidence of pulmonary thromboembolism. No acute aortic finding demonstrated. Mild patchy opacity is seen in the posterior segment of the right upper lobe as well as the superior segment right lower lobe posterior segment. Small amount of opacity is present in the left lung base medially. This most likely represents infiltrate/pneumonia. No significant pericardial or pleural fluid. Postsurgical changes are present about the stomach. Cholecystectomy clips. Small hiatal hernia. IMPRESSION: No evidence of pulmonary thromboembolism. Patchy opacity in both lungs, greater on the right, most compatible with pneumonia/ infiltrate.
--- NOTE | 2020-09-02 09:48 | RAD REPORT ---
EXAM DESCRIPTION: Chest Single View CLINICAL HISTORY: COUGH TECHNIQUE: Frontal view of the chest. COMPARISON: No relevant prior studies available. FINDINGS: Lungs: No consolidation. Symmetrical vascular pattern. Pleural space: No pneumothorax or pleural effusion. Heart: Normal cardiac size and configuration. Mediastinum: No abnormality noted. Bones/joints: No osseous destruction or sclerosis noted. IMPRESSION: No abnormality noted. 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 The interpreting r adiologist is fully responsible for the content of the report.
--- NOTE | 2020-09-02 10:19 | ER ---
Nurse's Notes [facility] Name: Sotero Muñoz Jr Age: 40 yrs Sex: Male : 1980 Arrival Date: 09/02/2020 Time: 04:25 Bed 8 Private MD: Dileep Allison Diagnosis: Pneumonia due to other specified bacteria-bilateral multifocal;Fever, unspecified;Severe sepsis without septic shock;Type 2 diabetes mellitus;Obesity, unspecified;Elevated white blood cell count Presentation: 09/02 04:37 Chief complaint: Patient states: yesterday I am not feeling well around 12 mn today I rr5 started to have shaky movement, cough, fever and shortness of breath. Coronavirus screen: chills, cough unrelated to allergies, fever, shortness of breath. Ebola Screen: Patient negative for fever greater than or equal to 101.5 degrees Fahrenheit, and additional compatible Ebola Virus Disease symptoms Patient denies exposure to infectious person. Patient denies travel to an Ebola-affected area in the 21 days before illness onset. Initial Sepsis Screen: Does the patient meet any 2 criteria? HR > 90 bpm. No. Patient's initial sepsis screen is negative. Does the patient have a suspected source of infection? Yes: Productive cough/pneumonia. Risk Assessment: Do you want to hurt yourself or someone else? Patient reports no desire to harm self or others. Onset of symptoms was September 02, 2020. Care prior to arrival: Medication(s) given: Tylenol. 04:37 Method Of Arrival: Ambulatory rr5 04:37 Acuity: PALAK 3 rr5 Historical: - Allergies: 04:42 No Known Allergies; rr5 - Home Meds: 04:42 amlodipine 10 mg oral tab 1 tab once daily [Active]; lisinopril 20 mg oral tab 1 tab rr5 [Active]; metformin 500 mg Oral tab 1 tab 2 times per day [Active]; - PMHx: 04:42 Diabetes - NIDDM; Hypertension; rr5 - PSHx: 04:42 gastric sleeve; Cholecystectomy; cyst removed; rr5 - Immunization history:: Adult Immunizations up to date, Flu vaccine is up to date. - Social history:: Smoking status: unknown Patient/guardian denies using alcohol, street drugs, tobacco products. Screenin:42 Abuse screen: Denies threats or abuse. Denies injuries from another. Nutritional rr5 screening: No deficits noted. Tuberculosis screening: No symptoms or risk factors identified. Fall Risk No IV (0 pts). Total Mancia Fall Scale indicates No Risk (0-24 pts). Assessment: 04:35 General: Appears in no apparent distress. uncomfortable, Behavior is calm, cooperative, rr5 appropriate for age, Reports chills for fever for. Pain: Denies pain. Neuro: Level of Consciousness is awake, alert, obeys commands, Oriented to person, place, time, situation. Cardiovascular: Capillary refill < 3 seconds Patient's skin is warm and dry. Respiratory: Reports shortness of breath cough that is Airway is patent Respiratory effort is even, unlabored, Respiratory pattern is regular, symmetrical. 04:35 GI: No signs and/or symptoms were reported involving the gastrointestinal system. : rr5 No signs and/or symptoms were reported regarding the genitourinary system. EENT: No signs and/or symptoms were reported regarding the EENT system. Derm: Skin is intact, is healthy with good turgor, Skin temperature is warm. Musculoskeletal: Circulation, motion, and sensation intact. Capillary refill < 3 seconds. 05:36 Reassessment: a code sepsis has been called. sg 06:06 Reassessment: Patient appears in no apparent distress at this time. Patient is alert, rr5 oriented x 3, equal unlabored respirations, skin warm/dry/pink. awaiting for results. 06:55 Reassessment: follow up procalcitonin result laboratory staff aware. ED provider with rr5 verbal order to infuse just 2 liters of NS for now. 07:00 Reassessment: Patient appears in no apparent distress at this time. No changes from jl7 previously documented assessment. Patient and/or family updated on plan of care and expected duration. Pain level reassessed. Patient is alert, oriented x 3, equal unlabored respirations, skin warm/dry/pink. 08:00 Reassessment: Patient appears in no apparent distress at this time. Patient and/or 7 family updated on plan of care and expected duration. Pain level reassessed. Patient is alert, oriented x 3, equal unlabored respirations, skin warm/dry/pink. awaiting radiology results. 08:58 Reassessment: ERD notified of repeat lactate level, VO to administered 1L NS bolus at jl7 this time. 10:00 Reassessment: Patient appears in no apparent distress at this time. No changes from jl7 previously documented assessment. Patient and/or family updated on plan of care and expected duration. Pain level reassessed. Patient is alert, oriented x 3, equal unlabored respirations, skin warm/dry/pink. Vital Signs: 04:37 BP 150 / 104; Pulse 114; Resp 19; Temp 98.7; Pulse Ox 96% ; Weight 135.17 kg; Height 5 rr5 ft. 4 in. (162.56 cm); Pain 0/10; 06:03 BP 127 / 79; Pulse 93; Resp 20; Pulse Ox 98% ; rr5 07:14 BP 137 / 66; Pulse 97; Resp 19; Pulse Ox 95% ; jl7 08:27 BP 131 / 81; Pulse 96; Resp 17; Pulse Ox 96% ; jl7 09:01 Temp 99.2(O); jl7 09:29 BP 147 / 64; Pulse 93; Resp 19; Pulse Ox 99% ; jl7 10:26 BP 138 / 87; Pulse 108; Resp 21; Pulse Ox 98% ; jl7 12:52 BP 125 / 80; Pulse 98; Resp 17; Pulse Ox 98% ; jl7 04:37 Body Mass Index 51.15 (135.17 kg, 162.56 cm) rr5 ED Course: 04:25 Patient arrived in ED. am2 04:25 Dileep Allison MD is Private Physician. am2 04:26 Issa Natarajan RN is Primary Nurse. rr5 04:30 Michael Coley MD is Attending Physician. 7 04:40 Triage completed. rr5 04:42 Arm band placed on right wrist. rr5 04:43 Patient has correct armband on for positive identification. Bed in low position. Call rr5 light in reach. Pulse ox on. NIBP on. 04:44 No provider procedures requiring assistance completed. rr5 05:15 Flu and/or RSV swab sent to lab. Strep swab sent to lab. rr5 05:20 EKG done. rr5 05:35 First set of blood cultures drawn by me, Second set of blood cultures drawn by me. ds4 Inserted saline lock: 18 gauge in right forearm, using aseptic technique. Blood collected. 06:12 Notified ED physician of a critical lab result(s). Lactate 3.3. sg 06:22 Chest Single View XRAY In Process Unspecified. EDMS 06:45 covid. rr5 07:21 Primary Nurse role handed off by Issa Natarajan, RN jl7 07:21 Don Ann, MUSTAPHA is Primary Nurse. jl7 07:34 CT Chest For PE Angio In Process Unspecified. EDMS 08:02 Attending Physician role handed off by Michael Coley MD vasquez 08:02 Navid Michael MD is Attending Physician. vasquez 08:21 Repeat lab(s) drawn. by hi, sent to lab. jl7 10:17 Gail Baca MD is Hospitalizing Provider. vasquez 10:26 Patient admitted, IV remains in place. intact, No redness/swelling at site. jl7 Administered Medications: 05:30 Drug: NS 0.9% (30 ml/kg) 30 ml/kg Route: IV; Rate: bolus; Site: right antecubital; rr5 07:02 Follow up: Response: No adverse reaction; IV Status: Order to discontinue infusion; IV rr5 Intake: 2000ml 06:30 Drug: Rocephin - (cefTRIAXone) 1 grams Route: IVPB; Infused Over: 30 mins; Site: right rr5 forearm; 07:00 Follow up: Response: No adverse reaction; IV Status: Completed infusion jl7 06:40 Dru mg of (AZITHromycin 500 mg, NS 0.9% 250 ml) Route: IVPB; Infused Over: 1 hrs; rr5 Site: right forearm; 07:40 Follow up: Response: No adverse reaction; IV Status: Completed infusion jl7 08:59 Drug: NS 0.9% 1000 ml Route: IV; Rate: 1 bolus; Site: right forearm; jl7 10:00 Follow up: Response: No adverse reaction; IV Status: Completed infusion; IV Intake: jl7 1000ml 10:20 Drug: Tylenol 650 mg Route: PO; jl7 11:11 Follow up: Response: No adverse reaction jl7 10:21 Drug: Pepcid 20 mg Route: IVP; Site: right forearm; jl7 11:10 Follow up: Response: No adverse reaction jl7 10:22 Drug: Decadron - Dexamethasone 6 mg Route: IVP; Site: right forearm; jl7 11:10 Follow up: Response: No adverse reaction jl7 10:27 Drug: Aspirin 81 mg Route: PO; jl7 11:10 Follow up: Response: No adverse reaction jl7 Intake: 07:02 IV: 2000ml; Total: 2000ml. rr5 10:00 IV: 1000ml; Total: 3000ml. jl7 Outcome: 10:18 Decision to Hospitalize by Provider. vasquez 12:53 Admitted to Tele accompanied by tech, via wheelchair, room 228, with chart, Report jl7 called to MUSTAPHA Thibodeaux 12:53 Condition: stable 12:53 Discharge instructions given to patient, Instructed on the need for admit, Demonstrated understanding of instructions. 13:05 Patient left the ED. jl7 Signatures: Dispatcher [employer] EDMS Ashok Morales RN RN sg Navid Michael MD MD cha Swanson, Donovan ds4 Don Ann RN RN jl7 Katarina Akhtar Raymond, RN RN rr5 Michael Coley MD MD mh7 Corrections: (The following items were deleted from the chart) 10:28 08:59 NS 0.9% 1000 ml IV at 1 bolus in right antecubital jl7 jl7
--- NOTE | 2020-09-02 10:20 | EDPHYS ---
Physician Documentation [facility] Name: Sotero Muñoz Jr Age: 40 yrs Sex: Male : 1980 Arrival Date: 09/02/2020 Time: 04:25 Bed 8 Private MD: Dileep Allison ED Physician Navid Michael HPI: 09/02 05:00 This 40 yrs old Male presents to ER via Ambulatory with complaints of Cough, mh7 Fever. 05:01 The patient reports fever, that was measured at 101 degrees Fahrenheit. Onset: The mh7 symptoms/episode began/occurred last night. Modifying factors: there are no obvious modifying factors. Associated signs and symptoms: Pertinent positives: chills, cough, with clear sputum, myalgias, shortness of breath, sore throat, Pertinent negatives: abdominal pain, altered mental status, arthralgias, backache, chest pain, diarrhea, pulling at ears, earache, headache, hemoptysis, nausea, night sweats, runny nose, sinus congestion, sinus drainage, skin rash, swelling, vomiting. Severity of symptoms: At their worst the symptoms were moderate last night, in the emergency department the symptoms have improved moderately. Historical: - Allergies: 04:42 No Known Allergies; rr5 - Home Meds: 04:42 amlodipine 10 mg oral tab 1 tab once daily [Active]; lisinopril 20 mg oral tab 1 tab rr5 [Active]; metformin 500 mg Oral tab 1 tab 2 times per day [Active]; - PMHx: 04:42 Diabetes - NIDDM; Hypertension; rr5 - PSHx: 04:42 gastric sleeve; Cholecystectomy; cyst removed; rr5 - Immunization history:: Adult Immunizations up to date, Flu vaccine is up to date. - Social history:: Smoking status: unknown Patient/guardian denies using alcohol, street drugs, tobacco products. ROS: 05:01 Eyes: Negative for injury, pain, redness, and discharge, Neck: Negative for injury, mh7 pain, and swelling, Cardiovascular: Negative for chest pain, palpitations, and edema, Abdomen/GI: Negative for abdominal pain, nausea, vomiting, diarrhea, and constipation, Back: Negative for injury and pain, : Negative for injury, bleeding, discharge, and swelling, MS/Extremity: Negative for injury and deformity, Skin: Negative for injury, rash, and discoloration, Neuro: Negative for headache, weakness, numbness, tingling, and seizure, Psych: Negative for depression, anxiety, suicide ideation, homicidal ideation, and hallucinations, Allergy/Immunology: Negative for hives, rash, and allergies, Endocrine: Negative for neck swelling, polydipsia, polyuria, polyphagia, and marked weight changes, Hematologic/Lymphatic: Negative for swollen nodes, abnormal bleeding, and unusual bruising. Exam: 05:01 Head/Face: Normocephalic, atraumatic. Eyes: Pupils equal round and reactive to light, mh7 extra-ocular motions intact. Lids and lashes normal. Conjunctiva and sclera are non-icteric and not injected. Cornea within normal limits. Periorbital areas with no swelling, redness, or edema. ENT: Nares patent. No nasal discharge, no septal abnormalities noted. Tympanic membranes are normal and external auditory canals are clear. Oropharynx with no redness, swelling, or masses, exudates, or evidence of obstruction, uvula midline. Mucous membranes moist. Neck: Trachea midline, no thyromegaly or masses palpated, and no cervical lymphadenopathy. Supple, full range of motion without nuchal rigidity, or vertebral point tenderness. No Meningismus. Chest/axilla: Normal chest wall appearance and motion. Nontender with no deformity. No lesions are appreciated. 05:01 Respiratory: Lungs have equal breath sounds bilaterally, clear to auscultation and percussion. No rales, rhonchi or wheezes noted. No increased work of breathing, no retractions or nasal flaring. Abdomen/GI: Soft, non-tender, with normal bowel sounds. No distension or tympany. No guarding or rebound. No evidence of tenderness throughout. Back: No spinal tenderness. No costovertebral tenderness. Full range of motion. Skin: Warm, dry with normal turgor. Normal color with no rashes, no lesions, and no evidence of cellulitis. MS/ Extremity: Pulses equal, no cyanosis. Neurovascular intact. Full, normal range of motion. Neuro: Awake and alert, GCS 15, oriented to person, place, time, and situation. Cranial nerves II-XII grossly intact. Motor strength 5/5 in all extremities. Sensory grossly intact. Cerebellar exam normal. Normal gait. Psych: Awake, alert, with orientation to person, place and time. Behavior, mood, and affect are within normal limits. 05:01 Constitutional: The patient appears in no acute distress, alert, awake, anxious. 05:01 Cardiovascular: Rate: tachycardic, Rhythm: regular, Pulses: no pulse deficits are appreciated, Heart sounds: normal, normal S1and S2, Edema: is not appreciated, JVD: is not appreciated. Vital Signs: 04:37 BP 150 / 104; Pulse 114; Resp 19; Temp 98.7; Pulse Ox 96% ; Weight 135.17 kg; Height 5 rr5 ft. 4 in. (162.56 cm); Pain 0/10; 06:03 BP 127 / 79; Pulse 93; Resp 20; Pulse Ox 98% ; rr5 07:14 BP 137 / 66; Pulse 97; Resp 19; Pulse Ox 95% ; jl7 08:27 BP 131 / 81; Pulse 96; Resp 17; Pulse Ox 96% ; jl7 09:01 Temp 99.2(O); jl7 09:29 BP 147 / 64; Pulse 93; Resp 19; Pulse Ox 99% ; jl7 10:26 BP 138 / 87; Pulse 108; Resp 21; Pulse Ox 98% ; jl7 12:52 BP 125 / 80; Pulse 98; Resp 17; Pulse Ox 98% ; jl7 04:37 Body Mass Index 51.15 (135.17 kg, 162.56 cm) rr5 MDM: 04:58 Patient medically screened. 7 10:19 Differential diagnosis: viral Infection, bacterial infection, URI, bronchitis, vasquez pneumonia. Data reviewed: vital signs, nurses notes, lab test result(s), EKG, radiologic studies, CT scan, plain films. Data interpreted: truck bracer: rate is 93 beats/min, rhythm is regular, Pulse oximetry: on room air is 99 %. Test interpretation: by ED physician or midlevel provider: ECG, plain radiologic studies. Counseling: I had a detailed discussion with the patient and/or guardian regarding: the historical points, exam findings, and any diagnostic results supporting the discharge/admit diagnosis, lab results. 09/02 04:59 Order name: Amylase, Serum [facility] 09/02 04:59 Order name: Basic Metabolic Panel; Complete Time: 08:04 [facility] 09/02 04:59 Order name: Blood Culture Adult (2) [facility] 09/02 04:59 Order name: CBC with Diff; Complete Time: 08:04 [facility] 09/02 04:59 Order name: Ckmb; Complete Time: 08:04 [facility] 09/02 04:59 Order name: CPK; Complete Time: 08:04 [facility] 09/02 04:59 Order name: Lactate; Complete Time: 06:19 [facility] 09/02 04:59 Order name: LFT's; Complete Time: 08:04 [facility] 09/02 04:59 Order name: Lipase; Complete Time: 08:04 [facility] 09/02 04:59 Order name: Procalcitonin; Complete Time: 08:04 [facility] 09/02 04:59 Order name: Protime (+inr); Complete Time: 06:19 [facility] 09/02 04:59 Order name: Ptt, Activated; Complete Time: 06:19 [facility] 09/02 04:59 Order name: Troponin (emerg Dept Use Only); Complete Time: 08:04 [facility] 09/02 04:59 Order name: Urine Microscopic Only; Complete Time: 08:04 [facility] 09/02 05:00 Order name: Influenza Screen (a \T\ B); Complete Time: 06:19 [facility] 09/02 05:00 Order name: Rapid Strep; Complete Time: 06:19 [facility] 09/02 05:00 Order name: Amylase; Complete Time: 08:04 [facility] 09/02 05:27 Order name: Glucose, Ancillary Testing; Complete Time: 06:19 [facility] 09/02 06:05 Order name: Throat Culture [facility] 09/02 07:29 Order name: Manual Differential; Complete Time: 08:04 [facility] 09/02 07:46 Order name: Urine Dipstick--Ancillary (enter results); Complete Time: 08:04 [facility] 09/02 07:47 Order name: TSH; Complete Time: 10:15 [facility] 09/02 08:14 Order name: Lactate; Complete Time: 10:15 [facility] 09/02 11:29 Order name: Lactate Sepsis 2 HR Follow-up [facility] 09/02 11:32 Order name: SARS-COV-2 RT PCR [facility] 09/02 11:32 Order name: Lactate [facility] 09/02 11:32 Order name: CBC with Automated Diff [facility] 09/02 11:32 Order name: Comprehensive Metabolic Panel [facility] 09/02 11:32 Order name: Comprehensive Metabolic Panel [facility] 09/02 04:59 Order name: Chest Single View XRAY [facility] 09/02 04:59 Order name: Accucheck; Complete Time: 05:19 [facility] 09/02 04:59 Order name: Cardiac monitoring; Complete Time: 05:19 [facility] 09/02 04:59 Order name: EKG - Nurse/Tech; Complete Time: 05:19 [facility] 09/02 04:59 Order name: IV Saline Lock - Large Bore; Complete Time: 05:37 [facility] 09/02 04:59 Order name: Labs collected and sent; Complete Time: 05:34 [facility] 09/02 04:59 Order name: O2 Per Protocol; Complete Time: 05:19 [facility] 09/02 04:59 Order name: O2 Sat Monitoring; Complete Time: 05:19 [facility] 09/02 04:59 Order name: Urine Dipstick-Ancillary (obtain specimen); Complete Time: 07:46 [facility] 09/02 06:54 Order name: CT Chest For PE Angio; Complete Time: 10:15 rr5 09/02 11:32 Order name: Heart Healthy [facility] 09/02 11:32 Order name: Lipid Profile [facility] 09/02 11:32 Order name: Lipid Profile [facility] 09/02 11:32 Order name: Magnesium [facility] 09/02 11:32 Order name: Magnesium [facility] 09/02 11:32 Order name: NT PRO-BNP [facility] 09/02 11:32 Order name: NT PRO-BNP [facility] 09/02 11:32 Order name: Phosphorus [facility] 09/02 11:32 Order name: Phosphorus [facility] 09/02 11:32 Order name: Protime (+INR) [facility] 09/02 11:32 Order name: Protime (+INR) [facility] 09/02 11:32 Order name: PTT, Activated Partial Thromb [facility] 09/02 11:33 Order name: PTT, Activated Partial Thromb [facility] 09/02 11:33 Order name: CBC with Automated Diff EDMS Administered Medications: 05:30 Drug: NS 0.9% (30 ml/kg) 30 ml/kg Route: IV; Rate: bolus; Site: right antecubital; rr5 07:02 Follow up: Response: No adverse reaction; IV Status: Order to discontinue infusion; IV rr5 Intake: 2000ml 06:30 Drug: Rocephin - (cefTRIAXone) 1 grams Route: IVPB; Infused Over: 30 mins; Site: right rr5 forearm; 07:00 Follow up: Response: No adverse reaction; IV Status: Completed infusion jl7 06:40 Dru mg of (AZITHromycin 500 mg, NS 0.9% 250 ml) Route: IVPB; Infused Over: 1 hrs; rr5 Site: right forearm; 07:40 Follow up: Response: No adverse reaction; IV Status: Completed infusion jl7 08:59 Drug: NS 0.9% 1000 ml Route: IV; Rate: 1 bolus; Site: right forearm; jl7 10:00 Follow up: Response: No adverse reaction; IV Status: Completed infusion; IV Intake: jl7 1000ml 10:20 Drug: Tylenol 650 mg Route: PO; jl7 11:11 Follow up: Response: No adverse reaction jl7 10:21 Drug: Pepcid 20 mg Route: IVP; Site: right forearm; jl7 11:10 Follow up: Response: No adverse reaction jl7 10:22 Drug: Decadron - Dexamethasone 6 mg Route: IVP; Site: right forearm; jl7 11:10 Follow up: Response: No adverse reaction jl7 10:27 Drug: Aspirin 81 mg Route: PO; jl7 11:10 Follow up: Response: No adverse reaction jl7 Disposition: 09/02/20 10:18 Hospitalization ordered by Gail Baca for Inpatient Admission. Preliminary diagnosis are Pneumonia due to other specified bacteria - bilateral multifocal, Fever, unspecified, Severe sepsis without septic shock, Type 2 diabetes mellitus, Obesity, unspecified, Elevated white blood cell count. - Bed requested for Telemetry/MedSurg (Inpatient). - Status is Inpatient Admission. jl7 - Condition is Fair. - Problem is new. - Symptoms have improved. Signatures: Dispatcher [employer] EDMS Cinthya Youssef Corey, MD MD cha Leal, Jahala RN RN jl7 Issa Natarajan RN RN rr5 Michael Coley MD MD 7 Corrections: (The following items were deleted from the chart) 10:27 06:27 CORONAVIRUS+MR.LAB.BRZ ordered. EDMS EDMS 12:38 10:18 Hospitalization Ordered by Gail Baca MD for Inpatient Admission. Preliminary bd diagnosis is Pneumonia due to other specified bacteria - bilateral multifocal; Fever, unspecified; Severe sepsis without septic shock; Type 2 diabetes mellitus; Obesity, unspecified; Elevated white blood cell count. Bed requested for Telemetry/MedSurg (Inpatient). Status is Inpatient Admission. Condition is Fair. Problem is new. Symptoms have improved. [facility] 13:05 12:38 09/02/2020 10:18 Hospitalization Ordered by Gail Baca MD for Inpatient jl7 Admission. Preliminary diagnosis is Pneumonia due to other specified bacteria - bilateral multifocal; Fever, unspecified; Severe sepsis without septic shock; Type 2 diabetes mellitus; Obesity, unspecified; Elevated white blood cell count. Bed requested for Telemetry/MedSurg (Inpatient). Status is Inpatient Admission. Condition is Fair. Problem is new. Symptoms have improved. bd
[2020-09-02] MEDS ORDERED: ASPIRIN 81 MG CHEWABLE TABLET ONE (10:33)
[2020-09-02] MEDS ORDERED: FAMOTIDINE 20 MG/2 ML VIAL IV ONE (10:33)
[2020-09-02] MEDS ORDERED: dexAMETHasone 4 MG/ML VIAL ONE (10:33)
[2020-09-02] MEDS ORDERED: ACETAMINOPHEN 325 MG TABLET ONE (10:33)
[2020-09-02] MEDS ORDERED: ONDANSETRON 4 MG/2 ML VIAL IV PRN (11:29)
[2020-09-02] MEDS ORDERED: ACETAMINOPHEN 500 MG TAB PO PRN (11:29)
[2020-09-02] MEDS ORDERED: POTASSIUM CL SA 10 MEQ TAB PO ONE (12:53)
[2020-09-02] MEDS: NA CHLORIDE 0.9% 1,000 ML IV SCH (13:15)
[2020-09-02 13:20] VITALS: BMI 49.6
[2020-09-02] MEDS: IPRATROPIUM BROM 0.5MG/2.5ML NEB SCH ×2 (13:38→19:40)
[2020-09-02] MEDS: ALBUTEROL 2.5 MG/3 ML NEB SOL NEB SCH ×2 (13:38→19:40)
--- NOTE | 2020-09-02 16:41 | P.HP ---
Certification for Inpatient Patient admitted to: Inpatient With expected LOS: >2 Midnights Patient will require the following post-hospital care: None Practitioner: I am a practitioner with admitting privileges, knowledge of patient current condition, hospital course, and medical plan of care. Services: Services provided to patient in accordance with Admission requirements found in Title 42 Section 412.3 of the Code of Federal Regulations Patient History Date of Service: 09/02/20 Reason for admission: Bilateral lower lobe pneumonia along with leukocytosis and lactic acidosis History of Present Illness: Patient is a 40-year-old gentleman who came to the hospital with difficulty breathing. Patient was hypoxic satting 92% on room air in the ER. He was placed on 2 L oxygen. Patient was also found have lactic acidosis along with a leukocytosis. Patient has been sick for the last few days. He has been coughing and congested and running fevers. Patient states that he had a temp of a 101. In the emergency room, patient had a chest x-ray which revealed bilateral lower lobe infiltrates suggestive of a pneumonia process. Patient was admitted to the hospital for further evaluation. Patient has been getting tachypneic out of bed and ambulating. This really unusual for him. He normally works during the day and has no breathing problems. He has had children who been sick as well. He will need to be admitted with is infiltrates on his x-ray to make sure his pneumonia does not progress. Patient w/ lactic acidosis and leukocytosis well. Allergies No Known Allergies Allergy (Verified 09/02/20 13:41) Home Medications: Amlodipine [Norvasc*] 1 tab PO DAILY 09/02/20 Lisinopril/Hydrochlorothiazide [Lisinopril-Hctz 20-25 mg Tab] 1 tab PO DAILY 09/02/20 Metformin HCl [Metformin HCl ER] 1 tab PO BID 09/02/20 - Past Medical/Surgical History Has patient received pneumonia vaccine in the past: No Diabetic: Yes -: HTN -: DM -: Gastric sleeve 2009 -: cyst removal on shoulder -: cholecystectomy -: eye surgery bilateral - Family History Father Medical History: Hypertension Mother Medical History: Hypertension - Social History Smoking Status: Never smoker Alcohol use: No CD- Drugs: No Caffeine use: Yes Place of Residence: Home Review of Systems 10-point ROS is otherwise unremarkable Physical Examination - Vital Signs Temperature: 98.7 F Blood Pressure: 125/80 Pulse: 98 Respirations: 17 Pulse Ox (%): 92 - Physical Exam General: Alert, In no apparent distress, Oriented x3 HEENT: Atraumatic, PERRLA, Mucous membr. moist/pink, EOMI, Sclerae nonicteric Neck: Supple, 2+ carotid pulse no bruit, No LAD, Without JVD or thyroid abnormality Respiratory: Diminished, Expiratory wheezes, Rhonchi/gurgles Cardiovascular: Regular rate/rhythm, Normal S1 S2, No murmurs Gastrointestinal: Normal bowel sounds, Soft and benign, Non-distended, No tenderness Musculoskeletal: No tenderness Integumentary: No rashes Neurological: Normal gait, Normal speech, Normal strength at 5/5 x4 extr, Normal tone, Normal affect Lymphatics: No axilla or inguinal lymphadenopathy - Studies Laboratory Data (last 24 hrs) 09/02/20 05:35: PT 12.2, INR 1.03, APTT 30.5 09/02/20 05:35: WBC 17.1 H, Hgb 14.6, Hct 42.6, Plt Count 263 09/02/20 05:35: Sodium 137, Potassium 3.6, BUN 12, Creatinine 1.16, Glucose 114 H, Total Bilirubin 0.5, AST 24, ALT 58, Alkaline Phosphatase 86, Amylase 28, Lipase 113 Microbiology Data (last 24 hrs): 09/02/20 05:09 Throat Group A Streptococcus Rapid Screen - Final 09/02/20 05:09 Nasopharnyx Influenza Type A Antigen Screen - Final 09/02/20 05:09 Nasopharnyx Influenza Type B Antigen Screen - Final Assessment & Plan - Problems (Diagnosis) (1) Pneumonia of both lower lobes Current Visit: Yes Status: Acute (2) Leukocytosis Current Visit: Yes Status: Acute (3) Lactic acidosis Current Visit: Yes Status: Acute - Plan 1. Continue with IV antibiotics 2. Awaiting sputum and blood culture; flu and COVID-19 have been negative 3. Repeat chest x-ray 4. CT of the chest revealed bilateral lower lobe infiltrates 5. If symptoms progress will get pulmonary consultation 6. Continue with nebs as needed 7. O2 per protocol 8. Continue with gentle hydration 9. Repeat labs including CBC and renal function in a.m. 10. GI and DVT prophylaxis Discharge Plan: Home Plan to discharge in: Greater than 2 days - Advance Directives Does patient have a Living Will: No Does patient have a Durable POA for Healthcare: No - Code Status/Comfort Care Code Status Assessed: Yes Code Status: Full Code Critical Care: No Time Spent Managing PTS Care (In Minutes): 45
[2020-09-02] MEDS ORDERED: GUAIFENESIN/CODEINE 5ML UCUP PO PRN (18:04)
[2020-09-02] MEDS: CEFTRIAXONE/SWI 1gm 1 GM/10 ML SYR IV SCH (20:57)
[2020-09-02] MEDS ORDERED: CEFTRIAXONE 1 GM/NS 50 ML 1 GM/50 ML BAG IV SCH (21:00)
[2020-09-03] MEDS: NA CHLORIDE 0.9% 1,000 ML IV SCH ×2 (01:14→17:35)
[2020-09-03] MEDS: ALBUTEROL 2.5 MG/3 ML NEB SOL NEB SCH ×4 (01:45→19:00)
[2020-09-03] MEDS: IPRATROPIUM BROM 0.5MG/2.5ML NEB SCH ×4 (01:45→19:00)
[2020-09-03 05:57] LABS: Absolute Lymphocytes (CBC) 1.2 K/uL (0.7-4.9); Basophils % 0.2 % (0-1.3); Hematocrit 37.8 % (39.6-49.0); Lymphocytes % 8.2 % (15.3-44.8); MPV 9.9 fL (7.6-11.3); RBC Red Blood Cell Count 4.03 M/uL (4.33-5.43)
[2020-09-03 06:08] LABS: ALT/SGPT 35 U/L (12-78); AST/SGOT 12 U/L (15-37); Albumin 3.1 g/dL (3.4-5.0); Alkaline Phosphatase 65 U/L (45-117); BUN Blood Urea Nitrogen 10 mg/dL (7-18); Bicarbonate 29 mmol/L (21-32); Bilirubin Total 0.2 mg/dL (0.2-1.0); Glucose Level 119 mg/dL (74-106); HDL Cholesterol 50 mg/dL (40-60); LDL Cholesterol, Calculated 82 (<130); Magnesium 2.1 mg/dL (1.8-2.4); NT PRO-BNP 328 pg/mL (<125); Phosphorus 3.9 mg/dL (2.5-4.9); Potassium 3.6 mmol/L (3.5-5.1); Protein, Total 6.5 g/dL (6.4-8.2); Sodium Level 142 mmol/L (136-145)
[2020-09-03 06:31] LABS: Protime INR 1.1
[2020-09-03] MEDS ORDERED: POTASSIUM 25 MEQ EFFERV TAB PO ONE (09:00)
[2020-09-03] MEDS: ENOXAPARIN 40 MG/0.4 ML SQ SCH (09:04)
[2020-09-03] MEDS: CEFTRIAXONE/SWI 1gm 1 GM/10 ML SYR IV SCH ×2 (09:04→20:15)
[2020-09-03] MEDS: AZITHROMYCIN IV 500 MG in NA CHLORIDE 0.9% 250 ML IVPB SCH (09:39)
[2020-09-03] MEDS ORDERED: METHYLPREDNISOLONE 125 MG INJ IV ONE (12:15)
--- NOTE | 2020-09-03 14:40 | RAD REPORT ---
EXAM DESCRIPTION: RAD - Chest Single View - 09/03/2020 1:50 pm CLINICAL HISTORY: Bilateral lower lobe pneumonia COMPARISON: CT chest September 02, portable chest September 02 TECHNIQUE: AP portable chest image was obtained 09/03/2020 1:50 pm . FINDINGS: Lung volumes are low. Large body habitus further limits the examination. No dense mass or consolidation. The predominately right lower lobe pneumonia pattern seen on the CT chest study is not well visualized on the of the portable film obtained concurrent with the CT chest nor the current ex amination. A progressive lung parenchymal process is not seen. Heart and vasculature are normal. No m easurable pleural effusion and no pneumothorax. No acute bony abnormality seen. No acute aortic findi ngs suspected. IMPRESSION: No new or progressive cardiopulmonary finding. The right lower lobe pneumonia findings detailed on the recent CT chest are not well visualized on to day's examination nor the portable chest obtained concurrent with the CT chest.
[2020-09-04] MEDS: IPRATROPIUM BROM 0.5MG/2.5ML NEB SCH ×2 (01:45→08:10)
[2020-09-04] MEDS: ALBUTEROL 2.5 MG/3 ML NEB SOL NEB SCH ×2 (01:45→08:10)
[2020-09-04 06:22] LABS: Absolute Lymphocytes (CBC) 1.9 K/uL (0.7-4.9); Basophils % 0.5 % (0-1.3); Hematocrit 37.8 % (39.6-49.0); Lymphocytes % 13.1 % (15.3-44.8); MPV 9.8 fL (7.6-11.3); RBC Red Blood Cell Count 4.05 M/uL (4.33-5.43)
[2020-09-04 07:57] LABS: BUN Blood Urea Nitrogen 11 mg/dL (7-18); Bicarbonate 28 mmol/L (21-32); Glucose Level 108 mg/dL (74-106); Magnesium 2.3 mg/dL (1.8-2.4); NT PRO-BNP 849 pg/mL (<125); Phosphorus 3.7 mg/dL (2.5-4.9); Potassium 3.6 mmol/L (3.5-5.1); Sodium Level 144 mmol/L (136-145)
[2020-09-04 08:57] VITALS: BP 128/85; TEMP 97.5
[2020-09-04] MEDS: CEFTRIAXONE/SWI 1gm 1 GM/10 ML SYR IV SCH (08:59)
[2020-09-04] MEDS: ENOXAPARIN 40 MG/0.4 ML SQ SCH (08:59)
[2020-09-04] MEDS ORDERED: POTASSIUM CL SA 10 MEQ TAB PO ONE (09:00)
[2020-09-04 09:10] VITALS: O2SAT 97
[2020-09-04] MEDS: AZITHROMYCIN IV 500 MG in NA CHLORIDE 0.9% 250 ML IVPB SCH (09:11)
--- NOTE | 2020-09-05 07:38 | EKG ---
Test Date: 2020-09-02 Test Time: 06:11:47 Product Manager Medical Device: RR MEASUREMENT RESULTS: Intervals: Rate: 104 DE: 150 QRSD: 82 QT: 342 QTc: 449 [place]: P: 47 DE: 150 QRS: 2 T: 3 INTERPRETIVE STATEMENTS: Sinus tachycardia Nonspecific T wave abnormality Abnormal ECG Compared to ECG 07/05/2020 15:10:08 T-wave abnormality now present Sinus rhythm no longer present Electronically Signed On 09-05-20 07:33:04 APPEALS REVIEWER VETERAN by Phil Rg
== END 2020-09-04 11:25 | disposition home or self-care (01) | DRG 871 ==
LOC: ER 04:22 → ERHOLD 11:29 → 2ND 12:52
PROVIDERS: ADMIT Hospitalist; ATTEND Hospitalist
DX: A41.9 Sepsis, unspecified organism (principal); J18.9 Pneumonia, unspecified organism; Z68.42 Body mass index [BMI] 45.0-49.9, adult; E87.2 Acidosis; E66.9 Obesity, unspecified; R65.20 Severe sepsis without septic shock; I10 Essential (primary) hypertension; E11.9 Type 2 diabetes mellitus without complications; R09.02 Hypoxemia; Z79.84 Long term (current) use of oral hypoglycemic drugs; Z79.899 Other long term (current) drug therapy; Z90.49 Acquired absence of other specified parts of digestive tract; Z98.84 Bariatric surgery status; Z20.828 Contact with and (suspected) exposure to other viral communicable diseases
CPT/HCPCS: 36415; 71045; 71275; 80048; 80053; 80061; 80076; 81003; 81015; 82150; 82550; 82553; 82947; 83605; 83690; 83735; 83880; 84100; 84145; 84443; 84484; 85025; 85610; 85730; 87040; 87070; 87081; 87205; 87804; 93005; 94010; 94640; 94760; 99285; J0456; J0696; J1100; J1650; J2930; J7030; J7050; Q9967; U0003

== ENCOUNTER 2020-11-18 11:23 | Observation (INO) | payer OTHER ==
--- OUTSIDE RECORDS SUMMARY | 2020-11-18 11:42 | XMS REPORT | Continuity of Care Document ---
:1980 Author Organization [facility] t Address [address] [place] [address] [address]. [address] [place] [address] Care Team Providers Name Role Phone Lab, Fam Pob I Attending Clinician Unavailable Doctor Unassigned, Name Attending Clinician Unavailable Problems This patient has no known problems. Allergies, Adverse Reactions, Alerts This patient has no known allergies or adverse reactions. Medications This patient has no known medications. Procedures This patient has no known procedures. Encounters Start End Encounter Admission Attending Care Care Encounter Source Date/Time Date/Time Type Type Clinicians Facility Department ID 2020-11-09 2020-11-09 Laboratory Lab, Adc [facility] [id number] 09:14:51 09:34:51 Only Fam Pob I Health [id number] [place] [id number] Professio [phone] [address]al [address] 2020-11-09 2020-11-09 Letter Doctor ITZ [id number] 00:00:00 00:00:00 (Out) UnassignedCARLOS [id number] [place] [facility] [phone] [id number] Results This patient has no known results.
--- OUTSIDE RECORDS SUMMARY | 2020-11-18 11:42 | XMS REPORT | Summary of Care ---
:1980 Author Organization [facility] - [facility] Address [address] [place] [address] Care Team Providers Name Role Phone Dileep Allison Primary Care Provider Encounter Details Date Type Department Care Team Description 11/09/2020 Letter (Out) [facility] MyChart Message s Doctor Unassigned, No [address] [facility] [place] [address] [facility] [phone] [place] [address] Allergies Not on Filedocumented as of this encounter (statuses as of 11/09/2020) Medications Not on filedocumented as of this encounter (statuses as of 11/09/2020) Active Problems Not on filedocumented as of this encounter (statuses as of 11/09/2020) Social History Tobacco Use Types Packs/Day Years Used Date Never Assessed Sex Assigned at Date Recorded Not on file documented as of this encounter Last Filed Vital Signs Not on filedocumented in this encounter Plan of Treatment Date Type Specialty Care Team Description 11/09/2020 Laboratory Only Family Medicine Lindsay Ramirez, FN [address] [facility] [address] [place], [place] [id number] Arrived Lab, Adc Fam Pob I Health Maintenance Due Date Last Done Comments Depression Screening 1992 DTaP,Tdap,and Td Vaccines (1 - 02/23/1999 Tdap) INFLUENZA VACCINE (#1) 2020 PNEUMOCOCCAL 0-64 YEARS COMBINED Aged Out No longer eligible based on SERIES patient's age to complete this topic documented as of this encounter Results Not on filedocumented in this encounter Insurance Payer Benefit Plan / Group Subscriber ID Effective Dates Phone Address Type [employer] ALLIED BENEFIT [id number] 2020-Present PPO documented as of this encounter
--- OUTSIDE RECORDS SUMMARY | 2020-11-18 11:43 | XMS REPORT | Summary of Care ---
:1980 Author Organization [facility] - [facility] Address [address] [place] [id number] Care Team Providers Name Role Phone Dileep Allison Primary Care Provider Reason for Visit Reason Comments LAB covid testing- congestion an d headache Encounter Details Date Type Department Care Team Description 11/09/2020 Laboratory Only [facility] Family Lindsay Ramirez, MEDIA SERVICES DIRECTOR [address] [facility] [address] [place] [address] Exposure to Medicine - [place] [facility], Adc Fam Pob I SARS-associated [address] [facility] [address] ([address]x) [place] [address] Allergies Not on Filedocumented as of this encounter (statuses as of 11/09/2020) Medications Not on filedocumented as of this encounter (statuses as of 11/09/2020) Active Problems Not on filedocumented as of this encounter (statuses as of 11/09/2020) Social History Tobacco Use Types Packs/Day Years Used Date Never Assessed Sex Assigned at Date Recorded Not on file COVID-19 Exposure Response Date Recorded In the last month, have you been in contact with Yes 11/09/2020 9:18 AM [employer]T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 someone who was confirmed or suspected to have Coronavirus / COVID-19? documented as of this encounter Last Filed Vital Signs Not on filedocumented in this encounter Nursing Notes Jenna Londono MA - 11/09/2020 9:35 AM CSTSotero Muñoz is a 40 year old male here for COVID Screening with a Nasopharyngeal Swab All droplet and contact precautions taken with appropriate PPE worn while interacting with patient. ? Goggles ? N95 Mask ? Gloves ? Gown RR 18 Pulse Ox 98% Patient educated on plan of care for visit, swabbing technique, risks and benefits of test and length of time to receive results. Verbal consent obtained to perform test. CDC Fact Sheet for Patients nCoV Diagnostic Panel dated 01/14/2020 and Factsheet What to Do if Sick with COVID 19 12/25/19 provided. Patient swabbed per appropriate nasopharyngeal technique, and patient tolerated well. Patient was discharged from the testing clinic in stable condition. Jenna Clayton MA 11/09/2020 9:18 AM Bilate nares swabbed during COVID19 nasopharyngeal swab. 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 documented in this encounter Plan of Treatment Name Type Priority Associated Diagnoses Order S chedule COVID-19 (MOLECULAR LAB Routine Exposure to Expected : 11/09/2020, TESTING SARS-associated Expires: 022 NUCLEIC ACID coronavirus AMPLIFICATION) Health Maintenance Due Date Last Done Comments Depression Screening 1992 DTaP,Tdap,and Td Vaccines (1 - 02/23/1999 Tdap) INFLUENZA VACCINE (#1) 2020 PNEUMOCOCCAL 0-64 YEARS COMBINED Aged Out No longer eligible based on SERIES patient's age to complete this topic documented as of this encounter Results Not on filedocumented in this encounter Visit Diagnoses Diagnosis Exposure to SARS-associated coronavirus - Primary documented in this encounter Additional Health Concerns Infection Onset Date Last Indicated Resolved Time COVID-19 Rule Out 11/09/2020 11/09/2020 documented as of this encounter Guarantor Name Account Type Relation to Date of Phone Billing Address Patient Sotero Muñoz Personal/Family Self 1980 [address] [facility] [facility] (Home) [place], [place] [address] documented as of this encounter
[2020-11-18] MEDS ORDERED: MAGNESIUM SULFATE 1 gm IVPB 1 GM/100 ML BAG IV ONE (13:31)
[2020-11-18] MEDS ORDERED: dexAMETHasone 10 MG/ML VIAL ONE (13:31)
[2020-11-18] MEDS ORDERED: LEVALBUTEROL 1.25 MG/3 ML NEB ONE (13:31)
[2020-11-18] MEDS ORDERED: NA CHLORIDE 0.9% 50 ML ONE (13:32)
[2020-11-18 13:55] LABS: Absolute Lymphocytes (CBC) 0.7 K/uL (0.7-4.9); Basophils % 0.5 % (0-1.3); Hematocrit 46.4 % (39.6-49.0); Lymphocytes % 11.8 % (15.3-44.8); MPV 9.4 fL (7.6-11.3); RBC Red Blood Cell Count 5.02 M/uL (4.33-5.43)
--- NOTE | 2020-11-18 13:56 | RAD REPORT ---
EXAM DESCRIPTION: RAD - Chest Single View - 11/18/2020 1:46 pm CLINICAL HISTORY: SOB, COVID positive November 14 COMPARISON: Single-view chest September 2020 TECHNIQUE: AP portable chest image was obtained 11/18/2020 1:46 pm . FINDINGS: Lung volumes are low. Linear opacification in the right midlung field is present which cou ld be atelectasis or infiltrate. Linear stranding in the left base could be infiltrate or atelectasis as well. No large mass or consolidation. Heart and vasculature are normal. No measurable pleural eff usion and no pneumothorax. No acute bony abnormality seen. No acute aortic findings suspected. IMPRESSION: Infiltrate versus atelectasis in the right midlung field and left base. Large body habitus and low lung volumes limit assessment.
[2020-11-18 14:02] LABS: Protime INR 1.03
[2020-11-18] MEDS ORDERED: ONDANSETRON 4 MG/2 ML VIAL ONE (14:04)
[2020-11-18 14:17] LABS: ALT/SGPT 66 U/L (12-78); AST/SGOT 41 U/L (15-37); Alkaline Phosphatase 92 U/L (45-117); BUN Blood Urea Nitrogen 14 mg/dL (7-18); Bicarbonate 32 mmol/L (21-32); Bilirubin Direct < 0.1 mg/dL (0-0.2); Bilirubin Total 0.3 mg/dL (0.2-1.0); Glucose Level 96 mg/dL (74-106); Magnesium 2.3 mg/dL (1.8-2.4); NT PRO-BNP 9 pg/mL (<125); Potassium 3.2 mmol/L (3.5-5.1); Protein, Total 8.2 g/dL (6.4-8.2); Sodium Level 132 mmol/L (136-145); Troponin (Emerg Dept Use Only) < 0.02 ng/mL (0.0-0.045)
--- NOTE | 2020-11-18 14:47 | RAD REPORT ---
EXAM DESCRIPTION: CT - Chest For Pe Angio - 11/18/2020 2:28 pm CLINICAL HISTORY: sob COMPARISON: September 2020 TECHNIQUE: Dynamically enhanced axial 3 mm thick images of the chest were obtained during administra tion of <100> mL Isovue 370 IV contrast. Coronal and oblique reconstruction images were generated and reviewed. Exam utilizes a protocol for optimal evaluation of pulmonary arterial tree. Maximum intensity projections 3D imaging was utilized All CT scans are performed using dose optimization technique as appropriate and may include automated exposure control or mA/KV adjustment according to patient size. FINDINGS: Suboptimal opacification of pulmonary arteries. A gross central pulmonary embolus is not seen A thoracic aortic aneurysm is not noted. A pleural effusion is not seen. A pericardial effusion is not seen. A mild to moderate right and mild left patchy alveolar and ground-glass opacities Fatty liver IMPRESSION: A gross central pulmonary embolus is not seen Mild to moderate right and mild left pulmonary opacities probably pneumonia
[2020-11-18] MEDS ORDERED: levoFLOXacin 750 MG TAB ONE (15:21)
--- NOTE | 2020-11-18 17:07 | ER ---
Nurse's Notes [facility] Name: Sotero Muñoz Jr Age: 40 yrs Sex: Male : 1980 Arrival Date: 11/18/2020 Time: 11:25 Bed 26 Private MD: Diagnosis: Pneumonia;Hypoxia;COVID 19 Presentation: 11/18 11:31 Chief complaint: Patient states: Covid+ 11/14/2020. Symptoms started 11/13/2020, got ca1 worse since yesterday with SOB at rest and very fatigued. Coronavirus screen: chills, congestion, cough unrelated to allergies, difficulty breathing, fatigue, headache, muscle pain, nausea, shaking with chills, shortness of breath, Client reports previous positive COVID test result. Date of collection: November 14, 2020. Ebola Screen: Patient negative for fever greater than or equal to 101.5 degrees Fahrenheit, and additional compatible Ebola Virus Disease symptoms Patient denies exposure to infectious person. Patient denies travel to an Ebola-affected area in the 21 days before illness onset. No symptoms or risks identified at this time. Initial Sepsis Screen: Does the patient meet any 2 criteria? No. Patient's initial sepsis screen is negative. Does the patient have a suspected source of infection? No. Patient's initial sepsis screen is negative. Risk Assessment: Do you want to hurt yourself or someone else? Patient reports no desire to harm self or others. Onset of symptoms was November 18, 2020. 11:31 Method Of Arrival: Ambulatory ca1 11:31 Acuity: PALAK 3 ca1 Triage Assessment: 14:10 Respiratory: the patient has moderate shortness of breath. zb 14:20 General: Behavior is calm, cooperative. zb Historical: - Allergies: 11:36 No Known Allergies; ca1 - Home Meds: 11:36 amlodipine 10 mg tab 1 tab once daily [Active]; lisinopril 20 mg Oral tab 1 tab once ca1 daily [Active]; metformin 500 mg Oral tab 1 tab 2 times per day [Active]; - PMHx: 11:36 Diabetes - NIDDM; Hypertension; ca1 - PSHx: 11:36 gastric sleeve; Cholecystectomy; cyst removed; ca1 - Immunization history:: Flu vaccine is up to date. - Social history:: Smoking status: Patient denies any tobacco usage or history of. Screenin:00 Abuse screen: Denies threats or abuse. Denies injuries from another. Nutritional zb screening: No deficits noted. Tuberculosis screening: No symptoms or risk factors identified. Fall Risk None identified. Assessment: 13:00 General: Appears in no apparent distress. uncomfortable, Reports chills for 1-2 days, zb feeling ill for > 3 days, fatigue for 12-24 hours. Pain: Complains of pain in generalized body aches Pain does not radiate. Pain currently is 7 out of 10 on a pain scale. Quality of pain is described as aching, Pain began 1 day ago. Neuro: Level of Consciousness is awake, alert, obeys commands, Oriented to person, place, time, situation. Cardiovascular: Heart tones S1 S2 present Patient's skin is warm and dry. Pulses are all present. Rhythm is regular. Respiratory: Reports shortness of breath at rest cough that is Airway is patent Respiratory effort is even, shallow, Respiratory pattern is tachypnea Breath sounds are diminished in left posterior lower lobe, right posterior middle lobe and right posterior lower lobe. GI: Abdomen is round non-distended, Bowel sounds present X 4 quads. Reports nausea. : No signs and/or symptoms were reported regarding the genitourinary system. EENT: No signs and/or symptoms were reported regarding the EENT system. Derm: Skin is intact, is healthy with good turgor, Skin is dry, Skin is normal, Skin temperature is warm. Musculoskeletal: Circulation, motion, and sensation intact. Capillary refill < 3 seconds, in bilateral fingers. Range of motion: intact in all extremities. 14:00 Reassessment: Patient appears in no apparent distress at this time. Patient and/or zb family updated on plan of care and expected duration. Pain level reassessed. Patient is alert, oriented x 3, equal unlabored respirations, skin warm/dry/pink. pt still has sob, but states that he feels fatigue and has bad body aches. breathing treatment helped according to patient. 15:00 Reassessment: Patient appears in no apparent distress at this time. Patient and/or zb family updated on plan of care and expected duration. Pain level reassessed. Patient is alert, oriented x 3, equal unlabored respirations, skin warm/dry/pink. patient lying in bed applied 2L of nc to help with breathing. no c/o of nausea at this time. 16:00 Reassessment: Patient appears in no apparent distress at this time. Patient and/or zb family updated on plan of care and expected duration. Pain level reassessed. Patient is alert, oriented x 3, equal unlabored respirations, skin warm/dry/pink. c/o of body aches. Provider at bedside to explain POC. 16:30 Reassessment: pt ambulated in room with/and with out oxygen. heart rate increased to zb 112 and oxygen saturation dropped to 88 without oxygen. Increased to 93 when oxygen was placed on. 17:30 Reassessment: Patient appears in no apparent distress at this time. Patient and/or zb family updated on plan of care and expected duration. Pain level reassessed. Patient is alert, oriented x 3, equal unlabored respirations, skin warm/dry/pink. pt lying in bed no changes at this time. 17:36 Reassessment: Hospitalists at bedside discussing care w/ patient. zb 18:30 Reassessment: Patient appears in no apparent distress at this time. Patient and/or zb family updated on plan of care and expected duration. Pain level reassessed. Patient is alert, oriented x 3, equal unlabored respirations, skin warm/dry/pink. patient lying in bed. no changes at this time. c/o of sweating. 19:30 Reassessment: Patient appears in no apparent distress at this time. Patient and/or zb family updated on plan of care and expected duration. Pain level reassessed. Patient is alert, oriented x 3, equal unlabored respirations, skin warm/dry/pink. no changes to patient at this time. 20:30 Reassessment: Patient appears in no apparent distress at this time. Patient and/or zb family updated on plan of care and expected duration. Pain level reassessed. Patient is alert, oriented x 3, equal unlabored respirations, skin warm/dry/pink. no change to patient at this. 20:54 Reassessment: attempted to call for report. zb 20:54 Reassessment: attempted to call for report. zb 21:30 Reassessment: Patient appears in no apparent distress at this time. Patient and/or zb family updated on plan of care and expected duration. Pain level reassessed. Patient is alert, oriented x 3, equal unlabored respirations, skin warm/dry/pink. updated patient family on room and POC, patient updated on room at well. Vital Signs: 11:31 BP 136 / 93; Pulse 96; Resp 18 S; Temp 97.5(TE); Pulse Ox 97% on R/A; Weight 133.81 kg ca1 (R); Height 5 ft. 5 in. (165.10 cm) (R); Pain 0/10; 13:00 BP 111 / 75; Pulse 75; Resp 23; Pulse Ox 94% on R/A; zb 14:00 BP 114 / 71; Pulse 96; Resp 22; Pulse Ox 94% on R/A; zb 15:00 BP 114 / 61; Pulse 92; Resp 20; Pulse Ox 92% on 2 lpm NC; zb 16:00 BP 129 / 82; Pulse 100; Resp 23; Pulse Ox 93% on 2 lpm NC; zb 16:30 Pulse 107; Resp 21; Pulse Ox 88% on R/A; zb 17:30 BP 109 / 70; Pulse 93; Resp 20; Pulse Ox 94% on R/A; zb 18:30 BP 107 / 79; Pulse 88; Resp 20; Pulse Ox 95% on 2 lpm NC; zb 19:30 BP 104 / 65; Pulse 87; Resp 20; Pulse Ox 94% on 2 lpm NC; zb 20:30 BP 110 / 68; Pulse 86; Resp 18; Pulse Ox 96% on R/A; zb 11:31 Body Mass Index 49.09 (133.81 kg, 165.10 cm) ca1 ED Course: 11:25 Patient arrived in ED. ag5 11:35 Triage completed. ca1 11:36 Arm band placed on right wrist. ca1 12:24 Harmeet Morrison PA is PHCP. jmm 12:25 Navid Michael MD is Attending Physician. jmm 13:09 Umu Ramirez RN is Primary Nurse. zb 13:43 X-ray completed. Portable x-ray completed in exam room. Patient tolerated procedure mh1 well. 13:45 Inserted saline lock: 20 gauge in left antecubital area, using aseptic technique. Blood zb collected. 13:46 XRAY Chest (1 view) In Process Unspecified. EDMS 14:10 Patient has correct armband on for positive identification. Call light in reach. Side zb rails up X 1. estate conservator on. Pulse ox on. NIBP on. Door closed. Noise minimized. Warm blanket given. 14:29 CT Chest For PE Angio In Process Unspecified. EDMS 17:[address] is Hospitalizing Provider. [facility] 21:30 No provider procedures requiring assistance completed. Patient admitted, IV remains in zb place. Administered Medications: 14:05 Drug: Decadron - Dexamethasone 10 mg Route: IVP; Site: left antecubital; zb 15:31 Follow up: Response: No adverse reaction zb 14:05 Drug: Zofran (Ondansetron) 4 mg Route: IVP; Site: left antecubital; zb 14:30 Follow up: Response: No adverse reaction; Nausea is decreased; Vomiting decreased zb 14:06 Drug: Xopenex (3) 1.25 mg Route: Inhalation; zb 15:31 Follow up: Response: No adverse reaction zb 14:06 Drug: Magnesium Sulfate 1 grams Route: IVPB; Infused Over: 1 hrs; Site: left zb antecubital; 15:06 Follow up: Response: No adverse reaction; IV Status: Completed infusion; IV Intake: zb 100ml 15:11 Drug: LevaQUIN 750 mg Route: PO; zb 15:30 Follow up: Response: No adverse reaction zb Intake: 15:06 IV: 100ml; Total: 100ml. zb Outcome: 17:07 Decision to Hospitalize by Provider. m 21:30 Admitted to Med/surg accompanied by tech, room 410, with oxygen, on monitor, with zb chart, Report called to MUSTAPHA miranda 21:30 Condition: stable 21:30 Instructed on the need for admit, Demonstrated understanding of instructions. 21:46 Patient left the ED. zb Signatures: Dispatcher [employer] EDMS Harmeet Morrison PA PA Lisa Osorio 1 Roz Dodd RN RN ca1 [place], Ajare 5 Umu Ramirez RN RN zb
--- NOTE | 2020-11-18 17:07 | EDPHYS ---
Physician Documentation [facility] Name: Sotero Muñoz Jr Age: 40 yrs Sex: Male : 1980 Arrival Date: 11/18/2020 Time: :25 Bed 26 Private MD: ED Physician Navid Michael HPI: 11/18 11:31 This 40 yrs old Male presents to ER via Ambulatory with complaints of jmm Breathing Difficulty, COVID+. 11:31 The patient has shortness of breath at rest, with light activity. Onset: The jmm symptoms/episode began/occurred gradually, 5 day(s) ago. Duration: The symptoms are continuous. The patient's shortness of breath is aggravated by nothing, is alleviated by nothing. This is a 40 year old female with a history of dm, htn that presents to the ED with complaints of sob, cough, fatigue. Recently diagnosed with covid 19. Symptoms began 5 days ago. . Historical: - Allergies: 11:36 No Known Allergies; ca1 - Home Meds: 11:36 amlodipine 10 mg tab 1 tab once daily [Active]; lisinopril 20 mg Oral tab 1 tab once ca1 daily [Active]; metformin 500 mg Oral tab 1 tab 2 times per day [Active]; - PMHx: 11:36 Diabetes - NIDDM; Hypertension; ca1 - PSHx: 11:36 gastric sleeve; Cholecystectomy; cyst removed; ca1 - Immunization history:: Flu vaccine is up to date. - Social history:: Smoking status: Patient denies any tobacco usage or history of. ROS: 11:31 Constitutional: Positive for body aches, fatigue. jmm 11:31 Respiratory: Positive for cough, shortness of breath. 11:31 All other systems are negative. Exam: 11:31 Constitutional: This is a well developed, well nourished patient who is awake, alert, jmm and in no acute distress. Head/Face: atraumatic. Eyes: EOMI, no conjunctival erythema appreciated ENT: Moist Mucus Membranes Neck: Trachea midline, Supple Chest/axilla: Normal chest wall appearance and motion. Cardiovascular: Regular rate and rhythm. No edema appreciated Respiratory: Normal respirations, no respiratory distress appreciated Abdomen/GI: Non distended, soft Back: Normal ROM Skin: General appearance color normal MS/ Extremity: Moves all extremities, no obvious deformities appreciated, no edema noted to the lower extremities Neuro: Awake and alert, normal gait Psych: Behavior is normal, Mood is normal, Patient is cooperative and pleasant Vital Signs: 11:31 BP 136 / 93; Pulse 96; Resp 18 S; Temp 97.5(TE); Pulse Ox 97% on R/A; Weight 133.81 kg ca1 (R); Height 5 ft. 5 in. (165.10 cm) (R); Pain 0/10; 13:00 BP 111 / 75; Pulse 75; Resp 23; Pulse Ox 94% on R/A; zb 14:00 BP 114 / 71; Pulse 96; Resp 22; Pulse Ox 94% on R/A; zb 15:00 BP 114 / 61; Pulse 92; Resp 20; Pulse Ox 92% on 2 lpm NC; zb 16:00 BP 129 / 82; Pulse 100; Resp 23; Pulse Ox 93% on 2 lpm NC; zb 16:30 Pulse 107; Resp 21; Pulse Ox 88% on R/A; zb 17:30 BP 109 / 70; Pulse 93; Resp 20; Pulse Ox 94% on R/A; zb 18:30 BP 107 / 79; Pulse 88; Resp 20; Pulse Ox 95% on 2 lpm NC; zb 19:30 BP 104 / 65; Pulse 87; Resp 20; Pulse Ox 94% on 2 lpm NC; zb 20:30 BP 110 / 68; Pulse 86; Resp 18; Pulse Ox 96% on R/A; zb 11:31 Body Mass Index 49.09 (133.81 kg, 165.10 cm) ca1 MDM: 12:32 Patient medically screened. [facility] 16:17 Data reviewed: vital signs, nurses notes. ED course: Patient is alert and non toxic in jmm appearance in the ED. No signs of resp distress. Most likely viral pneumonia secondary to covid 19. Will treat for viral and bacterial pneumonia. Patient is otherwise given strict return precautions. Patient understood and agrees with the plan of care. . 17:05 ED course: o2 lowered to 88% on RA on ambulation Will admit for hypoxia. . [facility] 11/18 12:55 Order name: Basic Metabolic Panel; Complete Time: 14:18 [facility] 11/18 12:55 Order name: CBC with Diff; Complete Time: 14:18 [facility] 11/18 12:55 Order name: LFT's; Complete Time: 14:18 [facility] 11/18 12:55 Order name: Magnesium; Complete Time: 14:18 [facility] 11/18 12:55 Order name: NT PRO-BNP; Complete Time: 14:18 [facility] 11/18 12:55 Order name: PT-INR; Complete Time: 14:18 [facility] 11/18 12:55 Order name: Troponin (emerg Dept Use Only); Complete Time: 14:18 [facility] 11/18 12:55 Order name: XRAY Chest (1 view); Complete Time: 13:57 11/18 12:55 Order name: D-Dimer; Complete Time: 14:18 [facility] 11/18 12:55 Order name: CRP; Complete Time: 14:18 [facility] 11/18 14:02 Order name: CT Chest For PE Angio; Complete Time: 14:49 11/18 12:55 Order name: EKG; Complete Time: 12:56 [facility] 11/18 12:55 Order name: Cardiac monitoring; Complete Time: 14:06 [facility] 11/18 12:55 Order name: EKG - Nurse/Tech; Complete Time: 14:06 11/18 12:55 Order name: IV Saline Lock; Complete Time: 14:06 [facility] 11/18 12:55 Order name: Labs collected and sent; Complete Time: 14:06 [facility] 11/18 12:55 Order name: O2 Per Protocol; Complete Time: 14:06 11/18 12:55 Order name: O2 Sat Monitoring; Complete Time: 14:07 [facility] 11/18 16:21 Order name: Misc. Order: ambulate with o2; Complete Time: 16:52 jmm Administered Medications: 14:05 Drug: Decadron - Dexamethasone 10 mg Route: IVP; Site: left antecubital; zb 15:31 Follow up: Response: No adverse reaction zb 14:05 Drug: Zofran (Ondansetron) 4 mg Route: IVP; Site: left antecubital; zb 14:30 Follow up: Response: No adverse reaction; Nausea is decreased; Vomiting decreased zb 14:06 Drug: Xopenex (3) 1.25 mg Route: Inhalation; zb 15:31 Follow up: Response: No adverse reaction zb 14:06 Drug: Magnesium Sulfate 1 grams Route: IVPB; Infused Over: 1 hrs; Site: left zb antecubital; 15:06 Follow up: Response: No adverse reaction; IV Status: Completed infusion; IV Intake: zb 100ml 15:11 Drug: LevaQUIN 750 mg Route: PO; zb 15:30 Follow up: Response: No adverse reaction zb Disposition: 11/19 06:37 Co-signature as Attending Physician, Navid Michael MD I agree with the assessment and [facility] plan of care. Disposition: 11/18/20 17:07 Hospitalization ordered by Scotty Lane for Observation. Preliminary diagnosis are Pneumonia, Hypoxia, COVID 19. - Bed requested for Telemetry/MedSurg (Inpatient). - Status is Observation. zb - Condition is Stable. - Problem is new. - Symptoms are unchanged. Signatures: Dispatcher [employer] Mamie Cool RN RN dw Anderson, Corey, MD MD cha Mickail, Joel, PA PA Roz Marquez RN RN ca1 Brown, Zipporah, RN RN zheather Corrections: (The following items were deleted from the chart) 11/18 18:39 17:07 Hospitalization Ordered by Scotty Lane for Observation. Preliminary diagnosis dw is Pneumonia; Hypoxia; COVID 19. Bed requested for Telemetry/MedSurg (observation). Status is Observation. Condition is Stable. Problem is new. Symptoms are unchanged. [facility] 18:40 18:39 11/18/2020 17:07 Hospitalization Ordered by Scotty Lane for Observation. Preliminary diagnosis is Pneumonia; Hypoxia; COVID 19. Bed requested for Telemetry/MedSurg (observation). Status is Observation. Condition is Stable. Problem is new. Symptoms are unchanged. 19:15 18:40 11/18/2020 17:07 [address]ization Ordered by Scotty Lane for Observation. dw Preliminary diagnosis is Pneumonia; Hypoxia; COVID 19. Bed requested for [facility] ER HOLD. Status is Observation. Condition is Stable. Problem is new. Symptoms are unchanged. 21:46 19:15 11/18/2020 17:07 Hospitalization Ordered by Scotty Lane for Observation. zb Preliminary diagnosis is Pneumonia; Hypoxia; COVID 19. Bed requested for Telemetry/MedSurg (Inpatient). Status is Observation. Condition is Stable. Problem is new. Symptoms are unchanged. dw
--- NOTE | 2020-11-18 18:06 | P.HP ---
Certification for Inpatient Patient admitted to: Observation With expected LOS: <2 Midnights Practitioner: I am a practitioner with admitting privileges, knowledge of patient current condition, hospital course, and medical plan of care. Services: Services provided to patient in accordance with Admission requirements found in Title 42 Section 412.3 of the Code of Federal Regulations Patient History Date of Service: 11/18/20 Reason for admission: Shortness of breath History of Present Illness: 40-year-old morbidly obese gentleman recently diagnosed with COVID infection 4 days ago presented to the emergency department with progressive shortness of breath and cough associated with chest pain, and fever. Patient was hospitalized for pneumonia 2 months ago. His oxygen saturation was 88% on room air. Patient was placed on oxygen. CTA thorax was negative for pulmonary embolism. It demonstrated mild to moderate bilateral infiltrates. Patient has no leukocytosis. He is placed under observation for further management. Allergies No Known Allergies Allergy (Verified 09/02/20 13:41) Home Medications: Amlodipine [Norvasc*] 1 tab PO DAILY 09/02/20 Metformin HCl [Metformin HCl ER] 1 tab PO BID 09/02/20 Albuterol Inhaler [Ventolin Inhaler*] 2 puff IH Q6H PRN #1 hfa.aer.ad 09/04/20 Azithromycin [Zithromax] 250 mg PO ZPAK #1 truong 09/04/20 Cefdinir [Omnicef] 300 mg PO BID #14 capsule 09/04/20 Guaifen W/Codeine Syrup [ROBITUSSIN A-C Syrup*] 10 ml PO Q12HP PRN #100 ml 09/04/20 Methylprednisolone [Medrol dosepack] 4 mg PO DIRECTED #1 truong 09/04/20 - Past Medical/Surgical History Diabetic: Yes -: HTN -: DM -: Gastric sleeve 2009 -: cyst removal on shoulder -: cholecystectomy -: eye surgery bilateral - Family History Father -: Hypertension, Diabetes Mother -: Hypertension, Diabetes - Social History Alcohol use: No CD- Drugs: No Caffeine use: Yes Review of Systems Other: Except as documented, all other systems reviewed and negative. Physical Examination - Physical Exam General: Alert, Mild distress, Obese HEENT: Normocephalic, PERRLA, Sclerae nonicteric Neck: Supple, JVD not distended Respiratory: Diminished Cardiovascular: No edema, Regular rate/rhythm, Normal S1 S2 Gastrointestinal: Soft and benign, Non-distended Musculoskeletal: No clubbing, No swelling Integumentary: No rashes, No erythema Neurological: Normal speech, Normal strength at 5/5 x4 extr, Cranial nerves 3-12 intact - Studies Laboratory Data (last 24 hrs) 11/18/20 13:45: PT 12.1, INR 1.03 11/18/20 13:45: WBC 5.9, Hgb 15.7, Hct 46.4, Plt Count 232 11/18/20 13:45: Sodium 132 L, Potassium 3.2 L, BUN 14, Creatinine 0.99, Glucose 96, Magnesium 2.3, Total Bilirubin 0.3, AST 41 H, ALT 66, Alkaline Phosphatase 92 Assessment and Plan - Problems (Diagnosis) (1) Pneumonia due to COVID-19 virus Current Visit: Yes Status: Acute (2) Acute respiratory failure with hypoxia Current Visit: Yes Status: Acute (3) Morbid obesity Current Visit: Yes Status: Acute (4) Diabetes mellitus type 2 in obese Current Visit: Yes Status: Acute - Plan Place patient under observation. Titrate oxygen Start IV Solu-Medrol Start vitamin-C, D and zinc supplementation Consult to pulmonary Insulin sliding scale for glucose management. Hold metformin due to IV contrast use. Social service to assist with arrangements for home oxygen. - Advance Directives Does patient have a Living Will: No Does patient have a Durable POA for Healthcare: No
[2020-11-18 22:13] VITALS: BMI 48.8
[2020-11-18] MEDS ORDERED: METHYLPREDNISOLONE 40 MG INJ IV SCH (22:16)
[2020-11-18] MEDS: ASCORBIC ACID 500 MG TABLET PO SCH (22:16)
[2020-11-18] MEDS: INSULIN -REGULAR HUMAN 50 UNIT/0.5 ML ML SQ SCH (22:16)
[2020-11-18] MEDS: FAMOTIDINE 20 MG/2 ML VIAL IV SCH (23:22)
[2020-11-18] MEDS: APIXABAN 5 MG TABLET PO SCH (23:23)
[2020-11-19 06:07] LABS: Absolute Lymphocytes (CBC) 0.4 K/uL (0.7-4.9); Basophils % 0.1 % (0-1.3); Hematocrit 43.3 % (39.6-49.0); Lymphocytes % 10.7 % (15.3-44.8); MPV 9.4 fL (7.6-11.3); RBC Red Blood Cell Count 4.71 M/uL (4.33-5.43)
[2020-11-19 06:35] LABS: Albumin 3.6 g/dL (3.4-5.0); Bilirubin Total 0.3 mg/dL (0.2-1.0); C-Reactive Protein 13.1 mg/L (<3.00); Ferritin 468.2 ng/mL (26-388); Magnesium 2.4 mg/dL (1.8-2.4); Phosphorus 4.3 mg/dL (2.5-4.9); Potassium 3.4 mmol/L (3.5-5.1); Protein, Total 7.6 g/dL (6.4-8.2)
[2020-11-19] MEDS: APIXABAN 5 MG TABLET PO SCH ×2 (08:00→20:47)
[2020-11-19] MEDS: VITAMIN D 1000 UNIT TAB PO SCH (08:00)
[2020-11-19] MEDS: ZINC SULFATE 220 MG CAP PO SCH (08:00)
[2020-11-19] MEDS: FAMOTIDINE 20 MG/2 ML VIAL IV SCH ×2 (08:01→20:48)
[2020-11-19] MEDS: INSULIN -REGULAR HUMAN 50 UNIT/0.5 ML ML SQ SCH ×4 (08:41→20:48)
[2020-11-19] MEDS ORDERED: CEFTRIAXONE/SWI 1gm 1 GM/10 ML SYR IV SCH (09:00)
[2020-11-19] MEDS: ASCORBIC ACID 500 MG TABLET PO SCH ×2 (09:00→20:47)
[2020-11-19] MEDS ORDERED: CEFTRIAXONE 1 GM/NS 50 ML 1 GM/50 ML BAG IV SCH (09:00)
[2020-11-19] MEDS ORDERED: AZITHROMYCIN IV 500 MG in NA CHLORIDE 0.9% 250 ML IVPB SCH (09:00)
[2020-11-19] MEDS: METHYLPREDNISOLONE 125 MG INJ IV SCH ×2 (09:23→20:48)
[2020-11-19] MEDS ORDERED: POTASSIUM CL SA 10 MEQ TAB PO ONE ×2 (09:57→18:00)
--- NOTE | 2020-11-19 17:15 | P.CNS ---
Date of Consult: 11/19/20 Chief Complaint: Shortness of breath History of Present Illness: Patient is 40 years of age admitted with respiratory failure from coronal virus complaining of cough shortness of breath and fever CT scan negative for pulmonary embolism he is doing better 4 Allergies No Known Allergies Allergy (Verified 09/02/20 13:41) Home Medications: Amlodipine [Norvasc*] 1 tab PO DAILY 09/02/20 Metformin HCl [Metformin HCl ER] 1 tab PO BID 09/02/20 Albuterol Inhaler [Ventolin Inhaler*] 2 puff IH Q6H PRN #1 hfa.aer.ad 09/04/20 Azithromycin [Zithromax] 250 mg PO ZPAK #1 truong 09/04/20 Cefdinir [Omnicef] 300 mg PO BID #14 capsule 09/04/20 Guaifen W/Codeine Syrup [ROBITUSSIN A-C Syrup*] 10 ml PO Q12HP PRN #100 ml 09/04/20 Methylprednisolone [Medrol dosepack] 4 mg PO DIRECTED #1 truong 09/04/20 - Past Medical/Surgical History Diabetic: Yes -: HTN -: DM -: Gastric sleeve 2009 -: cyst removal on shoulder -: cholecystectomy -: eye surgery bilateral - Family History Father Medical History: Hypertension, Diabetes Mother Medical History: Hypertension, Diabetes - Social History Smoking Status: Unknown if ever smoked Alcohol use: No CD- Drugs: No Caffeine use: Yes Place of Residence: Home Review of Systems General: Weakness ENT: Nose Discharge Respiratory: Cough, Shortness of Breath Physical Examination Temp Pulse Resp BP Pulse Ox 97.1 F 72 21 H 132/84 92 11/19/20 12:00 11/19/20 12:00 11/19/20 12:00 11/19/20 12:00 11/19/20 12:00 - Problems (1) Pneumonia due to COVID-19 virus Current Visit: Yes Status: Acute Plan: Patient is 40 years of age admitted from pneumonia due to [place] virus is CRP level is less than 20 ferritin level is as and 500 patient has minimal interstitial change on the CT scan he is 92% on room air he is doing better can be discharged home on oxygen for a week or so in addition to in janet Mac 10 prednisone 20 mg twice a day for a week then 10 mg twice a day anti vitamin supplementation and aspirin
--- NOTE | 2020-11-19 17:16 | EKG ---
Test Date: 2020-11-18 Test Time: 13:30:18 Shipping Clerk Packing: MEGAN MEASUREMENT RESULTS: Intervals: Rate: 95 MN: 156 QRSD: 88 QT: 348 QTc: 437 [place]: P: 42 MN: 156 QRS: -6 T: 24 INTERPRETIVE STATEMENTS: Normal sinus rhythm Nonspecific T wave abnormality Abnormal ECG Compared to ECG 09/02/2020 06:11:47 Sinus tachycardia no longer present T-wave abnormality still present Electronically Signed On 11-19-20 17:13:08 [employer]AL [employer] HAND by Phil Rg
[2020-11-19] MEDS ORDERED: IVERMECTIN 3 MG TABS PO ONE (18:00)
--- NOTE | 2020-11-19 18:09 | P.PN ---
Subjective Date of Service: 11/19/20 Chief Complaint: Shortness of breath Subjective: Improving (stable on 2L NC, feeling better) Review of Systems 10-point ROS is otherwise unremarkable Physical Examination - Vital Signs Temperature: 97.7 F Blood Pressure: 120/81 Pulse: 75 Respirations: 20 Pulse Ox (%): 91 - Physical Exam General: Alert, In no apparent distress, Oriented x3, Obese HEENT: Sclerae nonicteric Respiratory: Other (nonlabored on 2LNC) Cardiovascular: No edema, Regular rate/rhythm Gastrointestinal: Soft and benign, No tenderness Integumentary: No rashes Neurological: Normal speech Assessment & Plan Physician Review Additional Text: Acute hypoxemic respiratory failure secondary to pneumonia due to COVID-19 Morbid obesity DM2, noninsulin dependent -continue solumedrol -give ivermectin today -continue vitamin supplemtnation -Pulm consulted -breathing better, stable on 2 LNC -insulin sliding scale -SW/CM consulted for home O2, discharge once set up Dispo: anticipate dc home in next 24hrs once home o2 is set up . Time Spent Managing Pts Care (In Minutes): 35
[2020-11-19] MEDS: ACETAMINOPHEN 500 MG TAB PO PRN (22:04)
[2020-11-20 04:19] LABS: C-Reactive Protein 4.94 mg/L (<3.00); Ferritin 484.4 ng/mL (26-388); Magnesium 2.6 mg/dL (1.8-2.4); Potassium 3.9 mmol/L (3.5-5.1)
[2020-11-20] MEDS: ASCORBIC ACID 500 MG TABLET PO SCH (07:29)
[2020-11-20] MEDS: ZINC SULFATE 220 MG CAP PO SCH (07:29)
[2020-11-20] MEDS: VITAMIN D 1000 UNIT TAB PO SCH (07:29)
[2020-11-20] MEDS: APIXABAN 5 MG TABLET PO SCH (07:29)
[2020-11-20] MEDS: INSULIN -REGULAR HUMAN 50 UNIT/0.5 ML ML SQ SCH ×2 (07:30→11:30)
[2020-11-20] MEDS: METHYLPREDNISOLONE 125 MG INJ IV SCH (07:30)
[2020-11-20] MEDS: FAMOTIDINE 20 MG/2 ML VIAL IV SCH (07:30)
[2020-11-20] MEDS: ACETAMINOPHEN 500 MG TAB PO PRN ×2 (07:31→13:33)
[2020-11-20] MEDS ORDERED: ONDANSETRON 4 MG/2 ML VIAL IV PRN (08:09)
[2020-11-20 12:57] VITALS: BP 130/92; TEMP 97.8
[2020-11-20 13:37] VITALS: O2SAT 90
--- NOTE | 2020-11-20 14:20 | P.DS ---
Admission Date: 11/18/20 Discharge Date: 11/20/20 Disposition: ROUTINE DISCHARGE Discharge Condition: GOOD Reason for Admission: Shortness of breath Consultations: Pulm: Dr. Soto Procedures: Problem List: Acute hypoxemic respiratory failure secondary to pneumonia due to COVID-19 Morbid obesity DM2, noninsulin dependent Brief History of Present Illness: 40yo morbidly obese M, PMH: DM2, HTN, recently diagnosed with COVID infection 4 days ago presented to the emergency department with progressive shortness of breath and cough associated with chest pain, and fever. Patient was hospitalized for bilateral pneumonia 2 months ago. His oxygen saturation was 88% on room air. Patient was placed on oxygen. CTA thorax was negative for pulmonary embolism. It demonstrated mild to moderate bilateral infiltrates. Patient has no leukocytosis. He is placed under observation for further management. Hospital Course: He was treated for COVID with vitamin supplementation, steroids, and received Ivermectin x1. He had signficant improvement in his symptoms but still would desaturate to 88% or lower on room air. Home oxygen was set up and patient was discharged home. His d-dimer was WNL on admission and didn't require a significant amount of O2. Patient was advised to take 81mg aspirin on discharge. Vital Signs/Physical Exam: Temp Pulse Resp BP Pulse Ox 97.8 F 81 22 H 130/92 H 91 11/20/20 12:00 11/20/20 12:00 11/20/20 12:00 11/20/20 12:00 11/20/20 12:00 General: Alert, In no apparent distress, Oriented x3 HEENT: Sclerae nonicteric Respiratory: Other (non-labored respirations) Cardiovascular: No edema, Regular rate/rhythm Gastrointestinal: Soft and benign, Non-distended, No tenderness Musculoskeletal: No tenderness Integumentary: No significant lesion, No tenderness/swelling Neurological: Normal speech, Normal affect Laboratory Data at Discharge: WBC 4.0 K/uL (4.3-10.9) L D 11/19/20 05:39 Hgb 14.9 g/dL (13.6-17.9) 11/19/20 05:39 Hct 43.3 % (39.6-49.0) 11/19/20 05:39 Plt Count 220 K/uL (152-406) 11/19/20 05:39 PT 12.1 SECONDS (9.5-12.5) 11/18/20 13:45 INR 1.03 11/18/20 13:45 Sodium 133 mmol/L (136-145) L 11/20/20 03:22 Potassium 3.9 mmol/L (3.5-5.1) 11/20/20 03:22 BUN 23 mg/dL (7-18) H 11/20/20 03:22 Creatinine 1.21 mg/dL (0.55-1.3) 11/20/20 03:22 Glucose 143 mg/dL (74-106) H 11/20/20 03:22 Phosphorus 4.3 mg/dL (2.5-4.9) 11/19/20 05:39 Magnesium 2.6 mg/dL (1.8-2.4) H 11/20/20 03:22 Total Bilirubin 0.3 mg/dL (0.2-1.0) 11/19/20 05:39 AST 29 U/L (15-37) 11/19/20 05:39 ALT 60 U/L (12-78) 11/19/20 05:39 Alkaline Phosphatase 87 U/L (45-117) 11/19/20 05:39 Home Medications: Amlodipine [Norvasc*] 1 tab PO DAILY 09/02/20 Metformin HCl [Metformin HCl ER] 1 tab PO BID 09/02/20 Albuterol Inhaler [Ventolin Inhaler*] 2 puff IH Q6H PRN #1 hfa.aer.ad 09/04/20 Guaifen W/Codeine Syrup [ROBITUSSIN A-C Syrup*] 10 ml PO Q12HP PRN #100 ml 09/04/20 Ascorbic Acid [Vitamin C*] 2,000 mg PO BID 30 Days #240 tablet 11/20/20 Aspirin [Aspirin EC 81 MG] 81 mg PO DAILY #30 tablet. 11/20/20 Cholecalciferol (Vitamin D3) [Vitamin D 1000 Iu Tab*] 4,000 unit PO DAILY 30 Days #120 tab 11/20/20 Zinc Sulfate [Zinc Sulfate*] 220 mg PO DAILY 30 Days #30 cap 11/20/20 predniSONE [Deltasone] 20 mg PO SEECOM 14 Days #21 tab 11/20/20 New Medications: Aspirin [Aspirin EC 81 MG] 81 mg PO DAILY #30 tablet. predniSONE [Deltasone] 20 mg PO SEECOM 14 Days #21 tab Ascorbic Acid [Vitamin C*] 2,000 mg PO BID 30 Days #240 tablet Cholecalciferol (Vitamin D3) [Vitamin D 1000 Iu Tab*] 4,000 unit PO DAILY 30 Days #120 tab Zinc Sulfate [Zinc Sulfate*] 220 mg PO DAILY 30 Days #30 cap Patient Discharge Instructions: You were diagnosed with COVID-19 pneumonia. You are prescribed prednisone for 2 weeks, a blood thinner (eliquis) for 1 month, and vitamins. Please follow up with Dr. Soto in ~1week. Diet: ADA Activity: Ad kush Followup: Gary Soto MD [ACTIVE - CAN ADMIT] - 1 Week (call to schedule an appoinment) Dileep Allison MD [Primary Care Provider] - 1-2 Weeks (Call to schedule an appointment) Time spent managing pt's care (in minutes): 35
== END 2020-11-20 14:40 | disposition home or self-care (01) ==
LOC: ER 11:23 → ERHOLD 17:49 → 4TH 21:30
PROVIDERS: ADMIT Internal Medicine; ATTEND Hospitalist
DX: U07.1 COVID-19 (principal); J12.82 Pneumonia due to coronavirus disease 2019; J96.01 Acute respiratory failure with hypoxia; E66.01 Morbid (severe) obesity due to excess calories; Z79.84 Long term (current) use of oral hypoglycemic drugs; Z20.822 Contact with and (suspected) exposure to COVID-19; Z98.84 Bariatric surgery status; Z68.42 Body mass index [BMI] 45.0-49.9, adult; R94.31 Abnormal electrocardiogram [ECG] [EKG]
CPT/HCPCS: 96365; 93005; 85025 ×2; 80048 ×2; 36415 ×2; 83735 ×3; 84100; 84132; 85610; 82947 ×7; 85379; 80076; 84484; 82728 ×2; 80053; 83880; 86140 ×3; 71275; 71045; 94760 ×4; 96375; 99285; Q9967; J0456; J3475; J1100; J0696; J7050; J2930 ×3; J2405 ×2; J2920

== ENCOUNTER 2024-06-11 10:45 | Emergency (ER) | payer OTHER ==
[2024-06-11] MEDS ORDERED: LEVALBUTEROL 1.25 MG/3 ML NEB ONE (12:10)
[2024-06-11 12:21] LABS: Absolute Basophils 0.1 K/uL (0-0.5); Absolute Eosinophils 0.6 K/uL (0-0.5); Absolute Lymphocytes (CBC) 1.6 K/uL (0.7-4.9); Absolute Monocytes 0.8 K/uL (0.1-1.3); Absolute Neutrophil 7.1 K/uL (1.8-8.0); Basophils % 0.9 % (0-1.3); Eosinophils % 5.9 % (0-4.4); Hematocrit 38.7 % (39.6-49.0); Hemoglobin 12.9 g/dL (13.6-17.9); MCH 31.2 pg (27.0-35.0); MCHC 33.3 g/dL (32.0-36.0); MCV 93.6 fL (80-100); MPV 9.1 fL (7.6-11.3); Monocytes % 7.4 % (3.3-12.3); Neutrophils % 69.8 % (41.7-73.7); Platelets 302 thou/uL (152-406); RBC Red Blood Cell Count 4.14 M/uL (4.33-5.43)
--- NOTE | 2024-06-11 12:22 | RAD REPORT ---
EXAM DESCRIPTION: RAD - Chest Single View - 06/11/2024 12:13 pm CLINICAL HISTORY: Chest pain;Congestion;Cough COMPARISON: <Comparisons> FINDINGS: Lines: None. Lungs: No evidence of edema or pneumonia. Pleural: No significant pleural effusions or pneumothorax. Cardiac: The heart size is within normal limits. Mediastinum: Within normal limits. Bones: No acute fractures. Other: None IMPRESSION: No acute cardiopulmonary disease.
[2024-06-11 12:35] LABS: SARS-CoV-2 Antigen CONTROL BLUE LINE VIS/BG OK; SARS-CoV-2 Antigen Rapid Res Negative (Negative)
[2024-06-11 12:44] LABS: Anion Gap 9.7 mEq/L (5.0-15.0); Magnesium 2.3 mg/dL (1.6-2.4); Potassium 2.7 mEq/L (3.5-5.1); Troponin High Sensitivity 3.8 pg/mL (<58.9)
[2024-06-11] MEDS ORDERED: NA CHLORIDE 0.9% 1,000 ML ONE (12:50)
[2024-06-11] MEDS ORDERED: POTASSIUM 25 MEQ EFFERV TAB ONE (12:50)
--- NOTE | 2024-06-11 13:15 | ER ---
Nurse's Notes [facility] – [place], [place] Name: Sotero Muñoz Jr Age: 44 yrs Sex: Male : 1980 Arrival Date: 06/11/2024 Time: 10:45 Bed 20 Private MD: Diagnosis: Acute upper respiratory infection, unspecified Presentation: 06/11 11:12 Chief complaint: Patient states: Cough, shortness of breath, congestion, headache, sore nj1 throat since Wednesday, gotten worse. Denies fever. Coronavirus screen: Vaccine status: Patient reports receiving the 2nd dose of the covid vaccine. Ebola Screen: Patient denies travel to an Ebola-affected area in the 21 days before illness onset. Initial Sepsis Screen: Does the patient meet any 2 criteria? No. Patient's initial sepsis screen is negative. Does the patient have a suspected source of infection? No. Patient's initial sepsis screen is negative. Risk Assessment: Do you want to hurt yourself or someone else? Patient reports no desire to harm self or others. Onset of symptoms was June 09, 2024. 11:12 Method Of Arrival: Ambulatory [facility] 11:12 Acuity: PALAK 3 nj1 Historical: - Allergies: 11:15 No Known Allergies; nj1 - PMHx: 11:15 Hypertension; Diabetes - NIDDM; Sleep apnea; Neuropathy; nj1 - PSHx: 11:15 None; nj1 - Immunization history:: Client reports receiving the 2nd dose of the Covid vaccine. - Infectious Disease History:: Denies. - Social history:: Smoking status: Patient denies any tobacco usage or history of. Screenin:16 [facility] ED Fall Risk Assessment (Adult) History of falling in the last 3 months, me1 including since admission No falls in past 3 months (0 pts) Confusion or Disorientation No (0 pts) Intoxicated or Sedated No (0 pts) Impaired Gait No (0 pts) Mobility Assist Device Used No (0 pt) Altered Elimination No (0 pt) Score/Fall Risk Level 0 - 2 = Low Risk Maintained a safe environment, Provided non-skid footwear, Hourly rounding (assess needs \T\ fall precautionary measures) done. Abuse screen: Denies threats or abuse. Nutritional screening: No deficits noted. Tuberculosis screening: No symptoms or risk factors identified. Assessment: 12:16 General: Appears uncomfortable, ill, obese, well groomed, well developed, Behavior is me1 calm, cooperative, appropriate for age, Reports Cough, shortness of breath, congestion, headache, sore throat since Wednesday, gotten worse. Denies fever. Pain: Denies pain. Neuro: Level of Consciousness is awake, alert, obeys commands, Oriented to person, place, time, situation, Appropriate for age. Cardiovascular: Patient's skin is warm and dry. Respiratory: Airway is patent Respiratory effort is even, unlabored, Respiratory pattern is regular, symmetrical. Respiratory: Reports shortness of breath at rest on exertion cough that is pain with cough. GI: No signs and/or symptoms were reported involving the gastrointestinal system. : No signs and/or symptoms were reported regarding the genitourinary system. EENT: No signs and/or symptoms were reported regarding the EENT system. Derm: Skin is intact, is healthy with good turgor, Skin is pink, warm \T\ dry. Musculoskeletal: No signs and/or symptoms reported regarding the musculoskeletal system. Vital Signs: 11:12 BP 122 / 76; Pulse 75; Resp 20; Temp 97.9; Pulse Ox 97% ; Weight 145.15 kg; Height 5 nj1 ft. 5 in. ; Pain 5/10; 11:54 BP 114 / 69; Pulse 75; Resp 18; Pulse Ox 99% on R/A; me1 12:45 BP 105 / 69; Pulse 76; Resp 19; Pulse Ox 96% on R/A; me1 13:23 BP 110 / 74; Pulse 75; Resp 16; Temp 98.2; Pulse Ox 98% ; me1 11:12 Body Mass Index 53.25 (145.15 kg, 165.1 cm) nj1 11:12 Pain Scale: Adult ri1 ED Course: 10:48 Patient arrived in ED. ra3 10:50 Stephanie Ramirez PA-C is PHCP. sb4 10:50 Ruy Hood MD is Attending Physician. sb4 11:15 Triage completed. nj1 11:16 Arm band placed on right wrist. nj1 12:08 Apple Hays, RN is Primary Nurse. me1 12:08 Initial lab(s) drawn, by nh, sent to lab. COVID swab sent to lab. Flu and/or RSV swab me1 sent to lab. Inserted saline lock: 22 gauge in right forearm, using aseptic technique. 12:09 Flu Sent. me1 12:09 SARS RAPID Sent. me1 12:09 BMP Sent. me1 12:09 CBC with Diff Sent. me1 12:09 Magnesium Sent. me1 12:09 NT PRO-BNP Sent. me1 12:09 Troponin HS Sent. me1 12:15 XRAY CXR (1 view) In Process Unspecified. EDMS 12:16 Patient has correct armband on for positive identification. Bed in low position. Call me1 light in reach. Side rails up X2. Provided Education on: POC. Verbalized understanding. . Client placed on continuous cardiac and pulse oximetry monitoring. NIBP monitoring applied. air sampling and monitoring on. Pulse ox on. NIBP on. 12:16 No provider procedures requiring assistance completed. me1 13:33 IV discontinued, intact, bleeding controlled, No redness/swelling at site. Pressure me1 dressing applied. Administered Medications: 12:12 Drug: Levalbuterol Inhalation 1.25 mg Inhalation once Route: Inhalation; me1 12:48 Follow up: Response: No adverse reaction; Wheezing diminished me1 12:53 Drug: Potassium PO Effervescent Tablet 50 mEq PO once; dissolve in 4 ounces of water or me1 juice Route: PO; 13:13 Follow up: Response: No adverse reaction me1 12:54 Drug: NS 0.9% IV 1000 ml IV at 1 bolus Per protocol; 1000 mL bolus Route: IV; Rate: 1 me1 bolus; Site: right forearm; 13:34 Follow up: Response: No adverse reaction; IV Status: Completed infusion me1 Medication: 12:16 VIS not applicable for this client. me1 Outcome: 13:14 Discharge ordered by . sb4 13:33 Discharged to home ambulatory, me1 13:33 Condition: stable 13:33 Discharge instructions given to patient, Instructed on discharge instructions, follow up and referral plans. Demonstrated understanding of instructions, follow-up care, medications, Prescriptions given X 2, 13:33 Patient left the ED. me1 Signatures: Dispatcher [employer] EDMS Stephanie Ramirez PA-C PA-C sb4 Tamiko Lawton RN RN nj1 Apple Hays RN RN me1 Rubi Rodriguez ra3 Corrections: (The following items were deleted from the chart) 12:16 11:12 Chief complaint: Patient states: Cough, shortness of breath, congestion, me1 headache, sore throat since Wednesday, gotten worse. Denies fever. nj1 13:28 13:23 BP 110 / ???; Pulse 75bpm; Resp 16bpm; Pulse Ox 98%; Temp 98.2F; me1 me1
--- NOTE | 2024-06-11 13:15 | EDPHYS ---
Physician Documentation [facility] Name: Sotero Muñoz Jr Age: 44 yrs Sex: Male : 1980 Arrival Date: 06/11/2024 Time: 10:45 Bed 20 Private MD: ED Physician Ruy Hood HPI: 06/11 11:52 This 44 yrs old Male presents to ER via Ambulatory with complaints of Cold Symptoms. sb4 11:52 shortness of breath, nasal congestion, productive cough x 3 days. states he gets sb4 pneumonia easily. family is sick with similar symptoms. no reported fever. Historical: - Allergies: 11:15 No Known Allergies; nj1 - PMHx: 11:15 Hypertension; Diabetes - NIDDM; Sleep apnea; Neuropathy; nj1 - PSHx: 11:15 None; nj1 - Immunization history:: Client reports receiving the 2nd dose of the Covid vaccine. - Infectious Disease History:: Denies. - Social history:: Smoking status: Patient denies any tobacco usage or history of. ROS: 11:52 Constitutional: Negative for fever, chills, and weight loss, sb4 11:52 ENT: Positive for sinus congestion, 11:52 Respiratory: Positive for cough, shortness of breath, 11:52 All other systems are negative, Exam: 11:52 Head/Face: Normocephalic, atraumatic. Eyes: Extra-ocular motions intact. Periorbital sb4 areas with no swelling, redness, or edema. ENT: Mucous membranes moist. Cardiovascular: Regular rate and rhythm with a normal S1 and S2. Respiratory: Lungs have equal breath sounds bilaterally, clear to auscultation and percussion. No rales, rhonchi or wheezes noted. No increased work of breathing, no retractions or nasal flaring. Abdomen/GI: Soft, non-tender, no distension. Skin: Warm, dry with normal turgor. Normal color with no rashes, no lesions, and no evidence of cellulitis. MS/ Extremity: Pulses equal, no cyanosis. Neurovascular intact. Full, normal range of motion. Neuro: Awake and alert, GCS 15, oriented to person, place, time, and situation. Motor strength 5/5 in all extremities. Sensory grossly intact. 11:52 Constitutional: The patient appears alert, awake, obese, Vital Signs: 11:12 BP 122 / 76; Pulse 75; Resp 20; Temp 97.9; Pulse Ox 97% ; Weight 145.15 kg; Height 5 nj1 ft. 5 in. ; Pain 5/10; 11:54 BP 114 / 69; Pulse 75; Resp 18; Pulse Ox 99% on R/A; me1 12:45 BP 105 / 69; Pulse 76; Resp 19; Pulse Ox 96% on R/A; me1 13:23 BP 110 / 74; Pulse 75; Resp 16; Temp 98.2; Pulse Ox 98% ; me1 11:12 Body Mass Index 53.25 (145.15 kg, 165.1 cm) nj1 11:12 Pain Scale: Adult nj1 MDM: 10:58 Patient medically screened. sb4 12:58 Data reviewed: vital signs, nurses notes, lab test result(s), radiologic studies, and sb4 as a result, I will discharge patient. Consideration of Admission/Observation Escalation of care including admission/observation considered. Care significantly affected by the following chronic conditions: Diabetes, Hypertension, Obesity. Counseling: I had a detailed discussion with the patient and/or guardian regarding the historical points, exam findings, and any diagnostic results supporting the discharge/admit diagnosis, lab results, radiology results, to return to the emergency department if symptoms worsen or persist or if there are any questions or concerns that arise at home. 06/11 11:47 Order name: BMP; Complete Time: 12:45 sb4 06/11 11:47 Order name: CBC with Diff; Complete Time: 12:22 sb4 06/11 11:47 Order name: Magnesium; Complete Time: 12:45 sb4 06/11 11:47 Order name: NT PRO-BNP; Complete Time: 12:45 sb4 06/11 11:47 Order name: Troponin HS; Complete Time: 12:45 sb4 06/11 11:47 Order name: SARS RAPID; Complete Time: 12:45 sb4 06/11 11:47 Order name: Flu; Complete Time: 12:56 sb4 06/11 11:47 Order name: XRAY CXR (1 view); Complete Time: 12:23 sb4 06/11 11:47 Order name: Cardiac monitoring; Complete Time: 12:12 sb4 06/11 11:47 Order name: IV Saline Lock; Complete Time: 12:09 sb4 06/11 11:47 Order name: Labs collected and sent; Complete Time: 12: sb4 06/11 11:47 Order name: O2 Per Protocol; Complete Time: 12: sb4 06/11 11:47 Order name: O2 Sat Monitoring; Complete Time: 12: sb4 Administered Medications: 12:12 Drug: Levalbuterol Inhalation 1.25 mg Inhalation once Route: Inhalation; me1 12:48 Follow up: Response: No adverse reaction; Wheezing diminished me1 12:53 Drug: Potassium PO Effervescent Tablet 50 mEq PO once; dissolve in 4 ounces of water or me1 juice Route: PO; 13:13 Follow up: Response: No adverse reaction me1 12:54 Drug: NS 0.9% IV 1000 ml IV at 1 bolus Per protocol; 1000 mL bolus Route: IV; Rate: 1 me1 bolus; Site: right forearm; 13:34 Follow up: Response: No adverse reaction; IV Status: Completed infusion me1 Disposition: 13:53 Co-signature as Attending Physician, Ruy Hood MD I reviewed the patient's care rn provided by the Advanced Practice Provider and agree with the diagnosis and treatment plan. Disposition Summary: 06/11/24 13:14 Discharge Ordered Notes: Location: Home sb4 Problem: new sb4 Symptoms: have improved sb4 Condition: Stable sb4 Diagnosis - Acute upper respiratory infection, unspecified sb4 Followup: sb4 - With: Emergency Department - When: As needed - Reason: Trouble breathing, Worsening of condition Discharge Instructions: - Discharge Summary Sheet sb4 - Upper Respiratory Infection, Adult, [id number] sb4 Forms: - Antibiotic Education sb4 - Patient Portal Instructions sb4 - Leadership Thank You Letter sb4 - Work release form me1 Prescriptions: - azithromycin 250 mg Oral tablet - take 1 dose pack ORAL route as directed on dose pack For 250 mg dose pack: take sb4 500 mg today (day 1), then 250 mg for 4 days (days 2-5); 1 Pack; Refills: 0, Product Selection Permitted - Prednisone 20 mg Oral Tablet - take 1 tablet ORAL route every 12 hours for 5 days; 10 tablet; Refills: 0, sb4 Product Selection Permitted Signatures: [facility] Ruy Ann MD MD rn Brown, Sophia, PA-C PAJennifer sb4 Tamiko Lawton RN RN [facility] Apple Hays, RN RN me1 Corrections: (The following items were deleted from the chart) 11:48 11:48 BASIC METABOLIC PANEL+C.LAB.BRZ ordered. EDMS EDMS 11:48 11:48 CBC+H.LAB.BRZ ordered. EDMS EDMS 11:48 11:48 MAGNESIUM+C.LAB.BRZ ordered. EDMS EDMS 11:48 11:48 PROBNP+C.LAB.BRZ ordered. EDMS EDMS 11:48 11:48 Troponin High Sensitivity+C.LAB.BRZ ordered. EDMS EDMS 11:48 11:48 SARS-COV-2 Antigen Rapid+I.LAB.BRZ ordered. EDMS EDMS 11:48 11:48 Influenza Screen (A \T\ B)+BA.LAB.BRZ ordered. EDMS EDMS 11:48 11:48 Chest Single View+RAD.RAD.BRZ ordered. EDMS EDMS
[2024-06-11 14:20] VITALS: BP 110/74; TEMP 98.2; O2SAT 98
== END 2024-06-11 13:33 | disposition home or self-care (01) ==
LOC: ER 10:45
DX: J06.9 Acute upper respiratory infection, unspecified (principal); Z11.52 Encounter for screening for COVID-19
CPT/HCPCS: 85025; 80048; 36415; 83735; 84484; 83880; 87804 ×2; 71045; 96360; 99285; 87811; J7614; J7030

== ENCOUNTER 2024-08-20 12:07 | Inpatient (IN) | payer OTHER ==
[2024-08-20 12:43] LABS: Absolute Basophils 0.1 K/uL (0-0.5); Absolute Eosinophils 0.8 K/uL (0-0.5); Absolute Lymphocytes (CBC) 1.8 K/uL (0.7-4.9); Absolute Monocytes 0.7 K/uL (0.1-1.3); Absolute Neutrophil 6.4 K/uL (1.8-8.0); Basophils % 1.2 % (0-1.3); Eosinophils % 8.3 % (0-4.4); Hematocrit 40.2 % (39.6-49.0); Hemoglobin 13.8 g/dL (13.6-17.9); Lymphocytes % 18.2 % (15.3-44.8); MCH 32.6 pg (27.0-35.0); MCHC 34.3 g/dL (32.0-36.0); MCV 95.1 fL (80-100); MPV 9.4 fL (7.6-11.3); Monocytes % 7.2 % (3.3-12.3); Neutrophils % 65.1 % (41.7-73.7); Platelets 292 thou/uL (152-406); RBC Red Blood Cell Count 4.23 M/uL (4.33-5.43); Red Cell Distribution Width 15.1 % (12.1-15.2)
[2024-08-20] MEDS ORDERED: FAMOTIDINE 20 MG/2 ML VIAL IV ONE (12:56)
[2024-08-20] MEDS ORDERED: NA CHLORIDE 0.9% 1,000 ML ONE (12:56)
[2024-08-20] MEDS ORDERED: ONDANSETRON 4 MG/2 ML VIAL ONE (12:56)
[2024-08-20 12:59] LABS: Specific Gravity 1.007 (1.005-1.030); Urine Bilirubin NEGATIVE (Negative); Urine Blood Negative (Negative); Urine Clarity Clear (Clear); Urine Color Colorless (Yellow); Urine Glucose NEGATIVE (Negative); Urine Ketones NEGATIVE (Negative); Urine Microscopic Reflex YN NO UMIC; Urine Nitrite NEGATIVE (Negative); Urine Protein NEGATIVE (Negative); Urine Urobilinogen Normal (Normal)
[2024-08-20 13:01] LABS: Albumin 3.7 g/dL (3.4-5.0); Albumin/Globulin Ratio 0.8 (1.1-1.8); Anion Gap 9.8 mEq/L (5.0-15.0); Bilirubin Total 0.3 mg/dL (0.2-1.0); Globulin 4.4 g/dL (2.3-3.5); Potassium 2.8 mEq/L (3.5-5.1); Protein, Total 8.1 g/dL (6.4-8.2)
--- NOTE | 2024-08-20 13:53 | RAD REPORT ---
EXAMINATION: CT ABDOMEN AND PELVIS WITHOUT CONTRAST CLINICAL INDICATION: Male, 44 years old.ABD PAIN TECHNIQUE: CT abdomen and pelvis was performed, without IV contrast, as per department protocol. Axia l, sagittal and coronal reconstructions were obtained. One or more of the following dose reduction techniques were used: Automated exposure control, adjustment of the mA and/or kV according to the pat ient size, and/or iterative reconstruction. Unless otherwise specified, incidental findings do not require dedicated imaging follow-up. [id number]. IV CONTRAST: Not administered. COMPARISON: 10/17/2012 FINDINGS: The lack of intravenous contrast limits the sensitivity of this exam for evaluation of solid visceral organs, vascular structures, and retroperitoneum. LOWER CHEST: The visualized lung bases are clear. LIVER: Hepatomegaly with steatosis. GALLBLADDER/BILE DUCTS: No biliary ductal dilatation.?Cholecystectomy PANCREAS: No mass, ductal dilation, or [place]-pancreatic fluid. SPLEEN: 17 mm low-density splenic lesion. ADRENALS: Normal; no mass. KIDNEYS AND URETERS: Normal size and contour. No hydronephrosis. URINARY BLADDER: Normal contour. GASTROINTESTINAL TRACT: Stomach is non-dilated. Small bowel has normal course and caliber. No colonic wall thickening or pericolonic inflammatory changes. Partial gastrectomy. PERITONEUM: No free fluid. Mild nonspecific thickening at the umbilicus. ABDOMINAL AORTA AND OTHER VESSELS: Normal caliber aorta and IVC. REPRODUCTIVE ORGANS: No pathologic process. Hysterectomy. MUSCULOSKELETAL: No acute or suspicious osseous abnormality. ADDITIONAL FINDINGS: None. IMPRESSION: No acute or significant abnormalities in the abdomen or pelvis, with evaluation limited by lack of IV contrast.
[2024-08-20] MEDS ORDERED: POTASSIUM 25 MEQ EFFERV TAB ONE (14:41)
--- NOTE | 2024-08-20 14:47 | EDPHYS ---
Physician Documentation [facility] Name: Sotero Muñoz Jr Age: 44 yrs Sex: Male : 1980 Arrival Date: 08/20/2024 Time: 12:07 Bed 12 Private MD: ED Physician Navid Michael HPI: 08/20 14:38 This 44 yrs old Male presents to ER via Ambulatory with complaints of Nausea, vasquez belly button bleeding, Doesn't Feel Right. 14:38 The patient presents to the emergency department with nausea, that is mild, abdominal vasquez pain, of the umbilical area. Onset: The symptoms/episode began/occurred 3 day(s) ago. Possible causes: unknown. The symptoms are aggravated by nothing. Associated signs and symptoms: Pertinent positives: abdominal pain, nausea. Severity of symptoms: At their worst the symptoms were mild moderate in the emergency department the symptoms have improved mildly. The patient has experienced similar episodes in the past, a few times. Historical: - Allergies: 12:12 No Known Allergies; ll1 - Home Meds: 15:28 rosuvastatin 5 mg oral tablet daily [Active]; metformin 500 mg Oral Tablet, Extended iw Release 24 hr daily [Active]; hydrochlorothiazide 25 mg Oral tablet daily [Active]; furosemide 80 mg Oral tablet daily [Active]; amlodipine-valsartan 10-320 mg oral tablet daily [Active]; lansoprazole 30 mg oral capsule,delayed release (e.c.) daily [Active]; bupropion HCl 450 mg Oral Tablet, Extended Release 24 hr daily [Active]; gabapentin 300 mg oral capsule daily [Active]; - PMHx: 12:12 Diabetes - NIDDM; Hypertension; neuropathy; Sleep Apnea; ll1 - Immunization history:: Adult Immunizations up to date. - Infectious Disease History:: Denies. - Social history:: Smoking status: Patient denies any tobacco usage or history of. ROS: 14:39 Constitutional: Negative for fever, chills, and weight loss, Eyes: Negative for injury, vasquez pain, redness, and discharge, ENT: Negative for injury, pain, and discharge, Neck: Negative for injury, pain, and swelling, Cardiovascular: Negative for chest pain, palpitations, and edema, Respiratory: Negative for shortness of breath, cough, wheezing, and pleuritic chest pain, Back: Negative for injury and pain, : Negative for injury, bleeding, discharge, and swelling, MS/Extremity: Negative for injury and deformity, Skin: Negative for injury, rash, and discoloration, Psych: Negative for depression, anxiety, suicide ideation, homicidal ideation, and hallucinations, Allergy/Immunology: Negative for hives, rash, and allergies, Endocrine: Negative for neck swelling, polydipsia, polyuria, polyphagia, and marked weight changes, Hematologic/Lymphatic: Negative for swollen nodes, abnormal bleeding, and unusual bruising, 14:39 Abdomen/GI: Positive for abdominal pain, nausea, 14:39 Skin: Positive for bleeding at the umbilicus, Exam: 14:39 Constitutional: This is a well developed, well nourished patient who is awake, alert, vasquez and in no acute distress. Head/Face: Normocephalic, atraumatic. Eyes: Pupils equal round and reactive to light, extra-ocular motions intact. Lids and lashes normal. Conjunctiva and sclera are non-icteric and not injected. Cornea within normal limits. Periorbital areas with no swelling, redness, or edema. ENT: Nares patent. No nasal discharge, no septal abnormalities noted. Tympanic membranes are normal and external auditory canals are clear. Oropharynx with no redness, swelling, or masses, exudates, or evidence of obstruction, uvula midline. Mucous membranes moist. Neck: Trachea midline, no thyromegaly or masses palpated, and no cervical lymphadenopathy. Supple, full range of motion without nuchal rigidity, or vertebral point tenderness. No Meningismus. Chest/axilla: Normal chest wall appearance and motion. Nontender with no deformity. No lesions are appreciated. Cardiovascular: Regular rate and rhythm with a normal S1 and S2. No gallops, murmurs, or rubs. Normal PMI, no JVD. No pulse deficits. Respiratory: Lungs have equal breath sounds bilaterally, clear to auscultation and percussion. No rales, rhonchi or wheezes noted. No increased work of breathing, no retractions or nasal flaring. Abdomen/GI: Soft, non-tender, with normal bowel sounds. No distension or tympany. No guarding or rebound. No evidence of tenderness throughout. Back: No spinal tenderness. No costovertebral tenderness. Full range of motion. Male : Normal genitalia with no discharge or lesions. Skin: Warm, dry with normal turgor. Normal color with no rashes, no lesions, and no evidence of cellulitis. MS/ Extremity: Pulses equal, no cyanosis. Neurovascular intact. Full, normal range of motion. Neuro: Awake and alert, GCS 15, oriented to person, place, time, and situation. Cranial nerves II-XII grossly intact. Motor strength 5/5 in all extremities. Sensory grossly intact. Cerebellar exam normal. Normal gait. Psych: Awake, alert, with orientation to person, place and time. Behavior, mood, and affect are within normal limits. 14:39 ECG was reviewed by the Attending Physician. 17:22 ECG was reviewed by the Attending Physician. [facility] Vital Signs: 12:28 BP 115 / 94; Pulse 87; Resp 18 S; Temp 98.2(TE); Pulse Ox 98% on R/A; Weight 154.22 kg aa5 (R); Height 5 ft. 6 in. (R); 15:26 BP 147 / 66; Pulse 82; Resp 16; Pulse Ox 98% on R/A; Pain 0/10; iw 16:55 BP 123 / 86; Pulse 81; Resp 17; Pulse Ox 98% on R/A; ll1 12:28 Body Mass Index 54.88 (154.22 kg, 167.64 cm) aa5 15:26 Pain Scale: Adult iw MDM: 12:21 Medical Screening Exam initiated [facility] 17:20 Differential diagnosis: Nonspecific abd pain, gastritis, pancreatitis, appendicitis, vasquez diverticulitis, viral gastroenteritis, gastroenteritis. Data reviewed: vital signs, nurses notes, lab test result(s), EKG, radiologic studies, plain films. Consideration of Admission/Observation Patient was admitted/placed on observation. Escalation of care including admission/observation considered. I considered the following discharge prescriptions or medication management in the emergency department Medications were administered in the Emergency Department. See MAR. Independent interpretation of the following test(s) in the Emergency Department EKG: See my EKG interpretation above. Test considered but Not performed: Ultrasound no renal usg. Historians other than the Patient: Spouse/Significant Other: well informed. Care significantly affected by the following chronic conditions: Diabetes, Hypertension, Obesity, sleep apnea. Counseling: I had a detailed discussion with the patient and/or guardian regarding the historical points, exam findings, and any diagnostic results supporting the discharge/admit diagnosis, lab results, radiology results, the need for further work-up and treatment in the hospital. 08/20 12:22 Order name: CBC with Diff; Complete Time: 14:16 [facility] 08/20 12:22 Order name: CMP; Complete Time: 14:16 [facility] 08/20 12:22 Order name: Lipase; Complete Time: 14:16 [facility] 08/20 12:22 Order name: Urinalysis w/ reflexes; Complete Time: 14:16 [facility] 08/20 14:43 Order name: Troponin High Sensitivity [facility] 08/20 16:41 Order name: CBC with Automated Diff EDMS 08/20 16:41 Order name: CBC with Automated Diff EDMS 08/20 16:41 Order name: Comprehensive Metabolic Panel EDMS 08/20 16:41 Order name: Comprehensive Metabolic Panel EDMS 08/20 16:42 Order name: Magnesium EDNC 08/20 16:44 Order name: Protime (+INR) EDMS 08/20 16:44 Order name: PTT, Activated Partial Thromb EDMS 08/20 13:08 Order name: Abdomen ; Complete Time: 14:16 EDNC 08/20 14:43 Order name: Chest Single View XRAY [facility] 08/20 16:41 Order name: Renal Ultrasound-Complete EDNC 08/20 16:41 Order name: Renal Ultrasound-Complete EDNC 08/20 14:43 Order name: EKG; Complete Time: 14:43 [facility] 08/20 12:22 Order name: IV Saline Lock; Complete Time: 12:37 [facility] 08/20 12:22 Order name: Labs collected and sent; Complete Time: 12:37 [facility] 08/20 14:43 Order name: EKG - Nurse/Tech; Complete Time: 15:19 [facility] EC:22 Rate is 89 beats/min. Rhythm is regular. QRS [place] is Normal. PA interval is normal. QRS vasquez interval is normal. QT interval is prolonged at 520 msec. No Q waves. T waves are Normal. No ST changes noted. Clinical impression: NSR w/ Non-specific ST/T Changes and No evidence of ischemia. Interpreted by me. Reviewed by me. Administered Medications: 13:00 Drug: Famotidine IVP 20 mg IVP once; dilute with 10 mL 0.9% NaCl; give over 2 minutes aa5 Route: IVP; Site: right forearm; 16:06 Follow up: Response: No adverse reaction; Marked relief of symptoms iw 13:00 Drug: Ondansetron IVP 4 mg IVP once; over 2 minutes Route: IVP; Site: right forearm; aa5 16:07 Follow up: Response: No adverse reaction; Marked relief of symptoms iw 13:00 Drug: NS 0.9% IV 1000 ml IV at 1 bolus Per protocol; to be given as a bolus over 60 aa5 minutes Route: IV; Rate: 1 bolus; Site: right forearm; 17:40 Follow up: Response: No adverse reaction; IV Status: Completed infusion; IV Intake: ll1 1000ml 14:43 Drug: Potassium PO Effervescent Tablet 50 mEq PO once; dissolve in 4 ounces of water or aa5 juice Route: PO; 15:28 Follow up: Response: No adverse reaction iw Disposition Summary: 08/20/24 14:46 Hospitalization Ordered Notes: Hospitalization Status: Observation vasquez Provider: Gail Baca cha Location: Telemetry/MedSurg (observation) vasquez Condition: Fair vasquez Problem: new vasquez Symptoms: have improved vasquez Bed/Room Type: Standard vasquez Room Assignment: 213(08/20/24 16:56) eb Diagnosis - Obesity, unspecified vasquez - Hypokalemia vasquez - Nausea vasquez - Acute kidney failure, unspecified - on chronic vasquez Forms: - Medication Reconciliation Form vasquez - SBAR form vasquez - Leadership Thank You Letter vasquez Signatures: Dispatcher [employer] EDMS Navid Michael MD MD cha Williams, Irene RN RN Odilia Finnye RN RN aa5 Margarita Spann Lynsay RN RN ll1 Corrections: (The following items were deleted from the chart) 13:08 12:22 Abdomen Pelvis W Con+CT.RAD.BRZ ordered. EDMS EDMS 14:43 14:43 Troponin High Sensitivity+C.LAB.BRZ ordered. EDMS EDMS 16:56 14:46 vasquez eb
--- NOTE | 2024-08-20 14:47 | ER ---
Nurse's Notes [facility] Name: Sotero Muñoz Jr Age: 44 yrs Sex: Male : 1980 Arrival Date: 08/20/2024 Time: 12:07 Bed 12 Private MD: Diagnosis: Obesity, unspecified;Hypokalemia;Nausea;Acute kidney failure, unspecified-on chronic Presentation: 08/20 12:28 Chief complaint: Patient states: nausea x 1 week ago, reports "bleeding from belly aa5 button". Pt denies abd pain, denies diarrhea. Coronavirus screen: At this time, the client does not indicate any symptoms associated with coronavirus-19. Ebola Screen: Patient denies travel to an Ebola-affected area in the 21 days before illness onset. Initial Sepsis Screen: Does the patient meet any 2 criteria? No. Patient's initial sepsis screen is negative. Does the patient have a suspected source of infection? No. Patient's initial sepsis screen is negative. Risk Assessment: Do you want to hurt yourself or someone else? Patient reports no desire to harm self or others. Onset of symptoms was August 2024. 12:28 Acuity: PALAK 3 aa5 12:28 Method Of Arrival: Ambulatory aa5 Historical: - Allergies: 12:12 No Known Allergies; ll1 - Home Meds: 15:28 rosuvastatin 5 mg oral tablet daily [Active]; metformin 500 mg Oral Tablet, Extended iw Release 24 hr daily [Active]; hydrochlorothiazide 25 mg Oral tablet daily [Active]; furosemide 80 mg Oral tablet daily [Active]; amlodipine-valsartan 10-320 mg oral tablet daily [Active]; lansoprazole 30 mg oral capsule,delayed release (e.c.) daily [Active]; bupropion HCl 450 mg Oral Tablet, Extended Release 24 hr daily [Active]; gabapentin 300 mg oral capsule daily [Active]; - PMHx: 12:12 Diabetes - NIDDM; Hypertension; neuropathy; Sleep Apnea; ll1 - Immunization history:: Adult Immunizations up to date. - Infectious Disease History:: Denies. - Social history:: Smoking status: Patient denies any tobacco usage or history of. Screenin:26 [facility] ED Fall Risk Assessment (Adult) History of falling in the last 3 months, iw including since admission No falls in past 3 months (0 pts) Confusion or Disorientation No (0 pts) Intoxicated or Sedated No (0 pts) Impaired Gait No (0 pts) Mobility Assist Device Used No (0 pt) Altered Elimination No (0 pt) Score/Fall Risk Level 0 - 2 = Low Risk Oriented to surroundings, Maintained a safe environment. Abuse screen: Denies threats or abuse. Nutritional screening: No deficits noted. Tuberculosis screening: No symptoms or risk factors identified. Assessment: 13:30 General: Appears in no apparent distress. Behavior is calm, cooperative. Pain: iw Complains of pain in umbilical area. Neuro: Level of Consciousness is awake, alert, obeys commands, Oriented to person, place, time, situation, Moves all extremities. Full function. Cardiovascular: Patient's skin is warm and dry. Respiratory: Respiratory effort is even, unlabored, Respiratory pattern is regular, symmetrical. GI: Abdomen is obese, Abd is soft X 4 quads Reports nausea, Patient currently denies diarrhea, vomiting. Derm: Skin is intact, is healthy with good turgor. Musculoskeletal: Range of motion: intact in all extremities. 14:30 Reassessment: Patient appears in no apparent distress at this time. Patient and/or iw family updated on plan of care and expected duration. Pain level reassessed. Patient is alert, oriented x 3, equal unlabored respirations, skin warm/dry/pink. pt ambulatory to bathroom. 15:27 Reassessment: Patient appears in no apparent distress at this time. Patient and/or iw family updated on plan of care and expected duration. Pain level reassessed. Patient is alert, oriented x 3, equal unlabored respirations, skin warm/dry/pink. nausea has improved, but feels "off", not himself Patient states feeling better. 16:56 Reassessment: No changes from previously documented assessment. Patient and/or family ll1 updated on plan of care and expected duration. Pain level reassessed. Patient is alert, oriented x 3, equal unlabored respirations, skin warm/dry/pink. gait steady to restroom. 17:40 Reassessment: No changes from previously documented assessment. Patient and/or family ll1 updated on plan of care and expected duration. Pain level reassessed. Patient is alert, oriented x 3, equal unlabored respirations, skin warm/dry/pink. Vital Signs: 12:28 BP 115 / 94; Pulse 87; Resp 18 S; Temp 98.2(TE); Pulse Ox 98% on R/A; Weight 154.22 kg aa5 (R); Height 5 ft. 6 in. (R); 15:26 BP 147 / 66; Pulse 82; Resp 16; Pulse Ox 98% on R/A; Pain 0/10; iw 16:55 BP 123 / 86; Pulse 81; Resp 17; Pulse Ox 98% on R/A; ll1 12:28 Body Mass Index 54.88 (154.22 kg, 167.64 cm) aa5 15:26 Pain Scale: Adult iw ED Course: 12:10 Patient arrived in ED. im 12:12 Arm band placed on. ll1 12:21 Navid Michael MD is Attending Physician. vasquez 12:29 Triage completed. aa5 12:35 Initial lab(s) drawn, by me, sent to lab. Inserted saline lock: 20 gauge in right aa5 forearm, using aseptic technique. Blood collected. Flushed with 10 mL NS. 13:22 Domonique Lopez, RN is Primary Nurse. iw 13:30 Abdomen In Process Unspecified. EDMS 14:45 Gail Baca MD is Hospitalizing Provider. vasquez 15:28 Patient has correct armband on for positive identification. Provided Education on: need iw for admit. 15:40 Chest Single View XRAY In Process Unspecified. EDMS 16:06 No provider procedures requiring assistance completed. iw 16:06 Patient admitted, IV remains in place. iw Administered Medications: 13:00 Drug: Famotidine IVP 20 mg IVP once; dilute with 10 mL 0.9% NaCl; give over 2 minutes aa5 Route: IVP; Site: right forearm; 16:06 Follow up: Response: No adverse reaction; Marked relief of symptoms iw 13:00 Drug: Ondansetron IVP 4 mg IVP once; over 2 minutes Route: IVP; Site: right forearm; aa5 16:07 Follow up: Response: No adverse reaction; Marked relief of symptoms iw 13:00 Drug: NS 0.9% IV 1000 ml IV at 1 bolus Per protocol; to be given as a bolus over 60 aa5 minutes Route: IV; Rate: 1 bolus; Site: right forearm; 17:40 Follow up: Response: No adverse reaction; IV Status: Completed infusion; IV Intake: ll1 1000ml 14:43 Drug: Potassium PO Effervescent Tablet 50 mEq PO once; dissolve in 4 ounces of water or aa5 juice Route: PO; 15:28 Follow up: Response: No adverse reaction iw Medication: 16:06 VIS not applicable for this client. iw Intake: 17:40 IV: 1000ml; Total: 1000ml. ll1 Outcome: 14:46 Decision to Hospitalize by Provider. vasquez 17:39 Admitted to Med/surg accompanied by nurse, via wheelchair, room 213, with chart, Report ll1 called to faxed to 17:39 Condition: stable 17:39 Instructed on the need for admit, 17:41 Patient left the ED. 1 Signatures: Dispatcher [employer] EDNavid Truong MD MD cha Williams, Irene, RN Odilia Bazzi RN RN Shankar Almonte RN RN 1 Rain Martin
--- NOTE | 2024-08-20 15:55 | RAD REPORT ---
EXAMINATION: ONE VIEW CHEST XR CLINICAL INDICATION: Male, 44 years old.CONGESTION TECHNIQUE: 1 View, AP supine, X-ray of the chest was performed. [id number]. COMPARISON: 06/11/2024 FINDINGS: Lungs and pleura: Clear lungs. No effusion. Heart and mediastinum: Normal heart size. Unremarkable mediastinal contours. Osseous structures: No acute abnormality. Tubes/lines: None Other: None. IMPRESSION: No acute intrathoracic abnormality.
[2024-08-20] MEDS ORDERED: ACETAMINOPHEN 500 MG TAB PO PRN (16:37)
[2024-08-20] MEDS ORDERED: MORPHINE 4 MG/ML SYR IV PRN (16:37)
[2024-08-20] MEDS ORDERED: ONDANSETRON 4 MG/2 ML VIAL IV PRN (16:37)
--- NOTE | 2024-08-20 16:42 | P.HP ---
Certification for Inpatient Patient admitted to: Observation With expected LOS: <2 Midnights Patient will require the following post-hospital care: None Practitioner: I am a practitioner with admitting privileges, knowledge of patient current condition, hospital course, and medical plan of care. Services: Services provided to patient in accordance with Admission requirements found in Title 42 Section 412.3 of the Code of Federal Regulations Patient History Date of Service: 08/20/24 Reason for admission: Nausea; LUNA; Belly button issues History of Present Illness: Patient is a 44yo Allergies No Known Allergies Allergy (Verified 09/02/20 13:41) Home Medications: Amlodipine [Norvasc*] 1 tab PO DAILY 09/02/20 Metformin HCl [Metformin HCl ER] 1 tab PO BID 09/02/20 Albuterol Inhaler [Ventolin Inhaler*] 2 puff IH Q6H PRN #1 hfa.aer.ad 09/04/20 Guaifen W/Codeine Syrup [ROBITUSSIN A-C Syrup*] 10 ml PO Q12HP PRN #100 ml 09/04/20 Ascorbic Acid [Vitamin C*] 2,000 mg PO BID 30 Days #240 tablet 11/20/20 Aspirin [Aspirin EC 81 MG] 81 mg PO DAILY #30 tablet.dr 11/20/20 Cholecalciferol (Vitamin D3) [Vitamin D 1000 Iu Tab*] 4,000 unit PO DAILY 30 Days #120 tab 11/20/20 Zinc Sulfate [Zinc Sulfate*] 220 mg PO DAILY 30 Days #30 cap 11/20/20 predniSONE [Deltasone] 20 mg PO SEECOM 14 Days #21 tab 11/20/20 - Past Medical/Surgical History Diabetic: Yes -: HTN -: DM -: Gastric sleeve 2009 -: cyst removal on shoulder -: cholecystectomy -: eye surgery bilateral - Family History Father Medical History: Hypertension, Diabetes Mother Medical History: Hypertension, Diabetes - Social History Alcohol use: No CD- Drugs: No Caffeine use: Yes Physical Examination - Studies Laboratory Data (last 24 hrs) 08/20/24 08/20/24 12:35 12:35 WBC 9.80 Hgb 13.8 Hct 40.2 Plt Count 292 Sodium 134 L Potassium 2.8 L BUN 25 H Creatinine 1.93 H Glucose 165 H Total Bilirubin 0.3 AST 71 H ALT 95 H Alkaline Phosphatase 152 H Lipase 52 Assessment & Plan - Advance Directives Does patient have a Living Will: No Does patient have a Durable POA for Healthcare: No
[2024-08-20] MEDS: POTASSIUM CL IV SCH (17:00)
[2024-08-20] MEDS: D5 NS IV SCH (17:00)
[2024-08-20 18:09] VITALS: BMI 53.2
[2024-08-20] MEDS: D5.45NS W/KCL 20MEQ 20 MEQ/1,000 ML BAG IV SCH (20:24)
[2024-08-20 21:33] VITALS: O2SAT 98
[2024-08-21 06:02] LABS: Absolute Basophils 0.1 K/uL (0-0.5); Absolute Eosinophils 0.7 K/uL (0-0.5); Absolute Lymphocytes (CBC) 1.5 K/uL (0.7-4.9); Absolute Monocytes 0.6 K/uL (0.1-1.3); Absolute Neutrophil 4.6 K/uL (1.8-8.0); Eosinophils % 9.5 % (0-4.4); Hematocrit 36.2 % (39.6-49.0); Hemoglobin 12.4 g/dL (13.6-17.9); Lymphocytes % 20.4 % (15.3-44.8); MCH 32.2 pg (27.0-35.0); MCHC 34.3 g/dL (32.0-36.0); MPV 9.5 fL (7.6-11.3); Monocytes % 8.1 % (3.3-12.3); Nucleated Red Blood Cells % 0.2 % (0-0); Platelets 273 thou/uL (152-406); RBC Red Blood Cell Count 3.85 M/uL (4.33-5.43)
[2024-08-21 06:10] LABS: PT Prothrombin Time 11.8 SECONDS (9.4-12.5); PTT, Activated Partial Thromb 35.5 SECONDS (24.3-36.9); Protime INR 1.06
[2024-08-21 06:22] LABS: Albumin 3.3 g/dL (3.4-5.0); Albumin/Globulin Ratio 0.9 (1.1-1.8); Anion Gap 9.9 mEq/L (5.0-15.0); Bilirubin Total 0.4 mg/dL (0.2-1.0); Globulin 3.5 g/dL (2.3-3.5); Potassium 2.9 mEq/L (3.5-5.1); Protein, Total 6.8 g/dL (6.4-8.2)
[2024-08-21] MEDS: KCL 20 MEQ/100 mL IVPB 20 MEQ/100 ML BAG IV SCH (07:38)
--- NOTE | 2024-08-21 08:11 | RAD REPORT ---
EXAMINATION: US RETROPERITONEUM CLINICAL INDICATION: [facility] MA[facility] LUNA TECHNIQUE: Real-time ultrasonography of the abdomen was performed. COMPARISON: No prior exam. FINDINGS: Exam is somewhat limited by poor penetration and lower [id number] ratio. RIGHT KIDNEY: Right renal length measurement: 11.8 cm. Normal in echogenicity and size. No calculus, solid mass or hydronephrosis. LEFT KIDNEY: Left renal length measurement: 11.6 cm. Normal in echogenicity and size. No calculus, so lid mass or hydronephrosis. URINARY BLADDER: Normal. ADDITIONAL FINDINGS: Incidentally noted hyperechoic appearance of the liver parenchyma suggesting barak atosis. IMPRESSION: No acute or significant of the kidneys and bladder, allowing for the aforementioned limitations. Diffuse hepatic steatosis..
--- NOTE | 2024-08-21 09:39 | P.PN ---
Subjective Date of Service: 08/21/24 Chief Complaint: Nausea; LUNA; Belly button issues Subjective: Improving (Umbilicus with dried blood but no further active bleeding) nausea continues but pt with less vomiting and diarrhea. Electrolyte imbalance persists Review of Systems 10-point ROS is otherwise unremarkable General: As per HPI Eyes: Unremarkable ENT: Unremarkable Respiratory: Unremarkable Cardiovascular: Unremarkable Gastrointestinal: Nausea, Vomiting, Diarrhea, Other (improving) Genitourinary: Unremarkable Musculoskeletal: Unremarkable Integumentary: Other (umbilical bleeding) Neurological: Unremarkable Lymphatics: Unremarkable Physical Examination - Vital Signs Temperature: 97.6 F Blood Pressure: 104/58 Pulse: 70 Respirations: 12 Pulse Ox (%): 94 - Physical Exam General: Alert, In no apparent distress, Oriented x3 HEENT: Atraumatic, Normocephalic Neck: Supple Respiratory: Normal air movement Cardiovascular: Normal pulses, Regular rate/rhythm Capillary refill: <2 Seconds Gastrointestinal: Hypoactive Musculoskeletal: No clubbing, No swelling Integumentary: Other (dried blood at umbilicus, no active bleeding) Neurological: Normal speech, Normal tone, Normal affect Lymphatics: No axilla or inguinal lymphadenopathy External genitalia: Deferred Rectal: Deferred - Studies Laboratory Data (last 24 hrs) 08/20/24 08/20/24 12:35 12:35 WBC 9.80 Hgb 13.8 Hct 40.2 Plt Count 292 Sodium 134 L Potassium 2.8 L BUN 25 H Creatinine 1.93 H Glucose 165 H Total Bilirubin 0.3 AST 71 H ALT 95 H Alkaline Phosphatase 152 H Lipase 52 Assessment And Plan - Plan Dehydration, electrolyte imbalance secondary to significant N/V/D LUNA secondary to dehydration IVF telemetry second to hypokalemia Electrolyte monitoring/replacement/re-evaluation antiemetics/antidiarrheals renal ultrasound monitor and trend vitals Omphalitis CT abd/pelvis performed in ED: IMPRESSION: "No acute or significant abnormalities in the abdomen or pelvis, with evaluation limited by lack of IV contrast." Monitor bleeding Monitor for s/s infection Vaccination update flu immunization administration Discharge Plan: Home Plan to discharge in: 24 Hours - Code Status/Comfort Care Code Status Assessed: Yes (Full) Critical Care: No Time Spent Managing PTS Care (In Minutes): 30
[2024-08-21] MEDS ORDERED: MORPHINE 2 MG/ML SYR IV PRN (10:32)
[2024-08-21] MEDS: FLU (Fluarix Triv) TS24-25(6MOS UP)/PF 45 MCG/0.5 ML Syringe IM ONE (11:21)
[2024-08-21 12:02] VITALS: BP 100/54; TEMP 97.7
--- NOTE | 2024-08-21 14:22 | RAD REPORT ---
EXAM: Head Brain Wo Cont HISTORY: headache COMPARISON: 07/05/2020 TECHNIQUE: Multiple contiguous axial images were obtained for a CT of the brain without contrast. Sag ittal and coronal reformats were performed. One or more of the following dose reduction techniques were used: Automated exposure control, adjus tment of the mA and kV according to patient size, and iterative reconstruction. Unless otherwise specified, incidental findings do not require dedicated imaging follow-up. FINDINGS: No evidence of hydrocephalus, intracranial hemorrhage, or extra-axial fluid collection. The brain is normal in morphology. The calvarium is intact. The visualized paranasal sinuses and mastoid air cells are essentially clear . IMPRESSION: No evidence of acute intracranial abnormality.
--- NOTE | 2024-08-21 16:27 | P.DS ---
Admission Date: 08/21/24 Discharge Date: 08/21/24 Disposition: ROUTINE DISCHARGE Discharge Condition: GOOD Reason for Admission: Nausea; LUNA; Belly button issues Brief History of Present Illness: This 44 yrs old Male with a past medical history of hypertension, hyperlipidemia, obesity status post gastric sleeve, and diabetes presented to the emergency department with nausea, abdominal pain, of the umbilical area - bleeding within the umbilicus. The symptoms began 3 days ago. Possible causes: unknown. The symptoms are aggravated by nothing. Pertinent positives: abdominal pain, nausea. Severity of symptoms: At their worst the symptoms were moderate in the emergency department; the symptoms have improved mildly. The patient has experienced similar episodes in the past, a few times. Labs indicate an acute kidney injury and electrolyte derangement, most likely from diuretics and poor p.o. intake while nauseated Hospital Course: Mr. Muñoz was admitted for IV hydration, electrolyte replacement, and bleeding at the umbilicus. His potassium remained low this morning at 2.8 so IV replacement was initiated. Resultant potassium 3.4 and patient taking oral fluids and food without nausea/vomiting. He is on blood pressure medication with HCTZ and additional Lasix. This afternoon he is well-hydrated, umbilical bleeding has resolved. Creatinine decreased from 1.93 to 1.67. He is feeling significantly better and his imaging during hospitalization was negative. He will follow-up with his PCP in 1 week and a list of Nephrologists was given with discharge information. Vital Signs/Physical Exam: Temp Pulse Resp BP Pulse Ox 97.7 F 81 20 100/54 L 95 08/21/24 12:00 08/21/24 12:00 08/21/24 12:00 08/21/24 12:00 08/21/24 12:00 General: Alert, In no apparent distress, Oriented x3 HEENT: Atraumatic, Normocephalic Neck: Supple Respiratory: Normal air movement Cardiovascular: Regular rate/rhythm, Normal S1 S2 Capillary refill: <2 Seconds Gastrointestinal: Normal bowel sounds, Soft and benign, Other (Dried blood in the umbilicus) Musculoskeletal: No clubbing, No swelling Integumentary: No rashes Neurological: Normal speech, Normal tone, Normal affect Lymphatics: No axilla or inguinal lymphadenopathy External genitalia: Deferred Rectal: Deferred Laboratory Data at Discharge: WBC 7.60 thou/uL (4.3-10.9) 08/21/24 05:31 Hgb 12.4 g/dL (13.6-17.9) L D 08/21/24 05:31 Hct 36.2 % (39.6-49.0) L 08/21/24 05:31 Plt Count 273 thou/uL (152-406) 08/21/24 05:31 PT 11.8 SECONDS (9.4-12.5) 08/21/24 05:31 INR 1.06 08/21/24 05:31 APTT 35.5 SECONDS (24.3-36.9) 08/21/24 05:31 Sodium 133 mEq/L (136-145) L 08/21/24 05:31 Potassium 3.4 mEq/L (3.5-5.1) L D 08/21/24 11:52 BUN 22 mg/dL (7-18) H 08/21/24 05:31 Creatinine 1.67 mg/dL (0.70-1.30) H 08/21/24 05:31 Glucose 185 mg/dL (74-106) H 08/21/24 05:31 Magnesium 1.8 mg/dL (1.6-2.4) 08/21/24 05:31 Total Bilirubin 0.4 mg/dL (0.2-1.0) 08/21/24 05:31 AST 61 U/L (15-37) H 08/21/24 05:31 ALT 84 U/L (16-61) H 08/21/24 05:31 Alkaline Phosphatase 126 U/L (45-117) H 08/21/24 05:31 Lipase 52 U/L (13-75) 08/20/24 12:35 Home Medications: Amlodipine [Norvasc*] 1 tab PO DAILY 09/02/20 Metformin HCl [Metformin HCl ER] 1 tab PO BID 09/02/20 Albuterol Inhaler [Ventolin Inhaler*] 2 puff IH Q6H PRN #1 hfa.aer.ad 09/04/20 Guaifen W/Codeine Syrup [ROBITUSSIN A-C Syrup*] 10 ml PO Q12HP PRN #100 ml 09/04/20 Ascorbic Acid [Vitamin C*] 2,000 mg PO BID 30 Days #240 tablet 11/20/20 Aspirin [Aspirin EC 81 MG] 81 mg PO DAILY #30 tablet. 11/20/20 Cholecalciferol (Vitamin D3) [Vitamin D 1000 Iu Tab*] 4,000 unit PO DAILY 30 Days #120 tab 11/20/20 Zinc Sulfate [Zinc Sulfate*] 220 mg PO DAILY 30 Days #30 cap 11/20/20 predniSONE [Prednisone*] 20 mg PO SEECOM 14 Days #21 tab 11/20/20 Furosemide 80 mg PO 08/20/24 Gabapentin 08/20/24 Lansoprazole 30 mg PO 08/20/24 Rosuvastatin [Crestor*] 5 mg PO 08/20/24 buPROPion HCL [Bupropion HCl Sr] 500 mg PO 08/20/24 hydroCHLOROthiazide [Hydrodiuril*] 08/20/24 Silver Nitrate Applicator [Silver Nitrate Applicator 12"] 1 each TP PRN PRN #20 stick 08/21/24 New Medications: Silver Nitrate Applicator [Silver Nitrate Applicator 12"] 1 each TP PRN PRN #20 stick PRN Reason: bleeding Physician Discharge Instructions: Mr. Muñoz was admitted for IV hydration, electrolyte replacement, and bleeding at the umbilicus. His potassium remained low this morning at 2.8 so IV replacement was initiated. Resultant potassium 3.4 and patient taking oral fluids and food without nausea/vomiting. He is on blood pressure medication with HCTZ and additional Lasix. This afternoon he is well-hydrated, umbilical bleeding has resolved. Creatinine decreased from 1.93 to 1.67. He is feeling significantly better and his imaging during hospitalization was negative. He will follow-up with his PCP in 1 week and a list of Nephrologists was given with discharge information. -DC IV and DC home -Follow-up with PCP in 1 to 2 weeks -Follow-up with Nephrology in 1 to 2 weeks (list of local providers provided) -Please call Dr. Baca at [phone] if any questions regarding hospital stay -Please call nursing station at [phone] if any nursing or medication questions -Return to the emergency room if symptoms worsen Diet: ADA Activity: Fall precautions Followup: Linda Amin MD [Primary Care Provider] -
--- NOTE | 2024-08-22 12:56 | EKG ---
Test Date: 2024-08-20 Test Time: 17:17:20 Usability Specialist: LUCINA MEASUREMENT RESULTS: Intervals: Rate: 89 NE: 150 QRSD: 86 QT: 428 QTc: 520 [place]: P: 32 NE: 150 QRS: -10 T: 14 INTERPRETIVE STATEMENTS: Normal sinus rhythm Cannot rule out Anterior infarct, age undetermined Prolonged QT Abnormal ECG Compared to ECG 11/18/2020 13:30:18 Myocardial infarct finding now present Prolonged QT interval now present T-wave abnormality no longer present Electronically Signed On 08-22-24 12:51:04 CDT by Gamaliel Ward
== END 2024-08-21 15:44 | disposition home or self-care (01) | DRG 683 ==
LOC: ER 12:07 → ERHOLD 16:37 → 2ND 17:22 → OBSVTOIN 08-21 09:40
PROVIDERS: ADMIT Hospitalist; ATTEND Hospitalist
DX: N17.9 Acute kidney failure, unspecified (principal); Z68.43 Body mass index [BMI] 50.0-59.9, adult; E66.9 Obesity, unspecified; E87.6 Hypokalemia; I10 Essential (primary) hypertension; E78.5 Hyperlipidemia, unspecified; E86.0 Dehydration; E11.40 Type 2 diabetes mellitus with diabetic neuropathy, unspecified; G47.33 Obstructive sleep apnea (adult) (pediatric); R58 Hemorrhage, not elsewhere classified; Z23 Encounter for immunization; Z79.84 Long term (current) use of oral hypoglycemic drugs; Z79.52 Long term (current) use of systemic steroids; Z79.82 Long term (current) use of aspirin; Z98.84 Bariatric surgery status; Z90.49 Acquired absence of other specified parts of digestive tract; Z79.899 Other long term (current) drug therapy
CPT/HCPCS: 36415; 70450; 71045; 74176; 76770; 80053; 81003; 82947; 83690; 83735; 84132; 84484; 85025; 85610; 85730; 93005; 96361; 96374; 96375; 99285; G0378; J2405; J3480; J7030; J7042